=== PATIENT | male | born 1935 | race Caucasian/White ===

== ENCOUNTER 2020-08-04 12:04 | Emergency (ER) | payer MEDICARE, SELFPAY ==
--- NOTE | 2020-08-04 12:05 | W.ED.FALL ---
HPI - Fall General: Chief Complaint: Fall Stated Complaint: FALL BACK PAIN Time Seen by Provider: 08/04/20 12:05 Source: patient and EMS Mode of arrival: EMS Limitations: no limitations History of Present Illness: HPI Narrative: Patient is a nice 85-year-old male who presents to the ED today via EMS for complaints of a back injury. Patient tells me he was pulling weeds with a friend and was tugging on a vine when the line broke loose causing him to fall backwards. He states he struck his back on a rock. He did not strike his head or lose consciousness. No neck pain. Patient is quite uncomfortable upon arrival. He was given 100mcg fentanyl in route. Associated symptoms-after fall: Denies abdominal pain, chest pain, headache(s), hematuria, lightheadedness or neck pain Review of Systems Const: Denies: fever(s) Eyes: Denies: change in vision, blurry vision or photophobia ENMT: Denies: odynophagia Card: Denies: chest pain, palpitations, edema, lightheadedness, syncope, pre-syncope or orthopnea Resp: Denies: dyspnea or hemoptysis GI: Denies: abdominal pain, nausea or vomiting : Denies: flank pain or hematuria Musc: Reports: back pain; Denies: neck pain, extremity pain, extremity swelling, joint pain or joint swelling Neuro: Denies: headache(s), numbness in extremities, weakness in extremities or sensory changes [facility] PFSH: Medical History (Updated 08/04/20 @ 15:17 by ROHAN Rose) BPH (benign prostatic hyperplasia) Bradycardia Hypertension Surgical History (Updated 02/04/20 @ 09:25 by Polly Kulkarni MD) Hx of tonsillectomy Hx of transurethral resection of prostate 1997, 1994 Hx of vasectomy Family History Other BPH (benign prostatic hyperplasia) Hypertension Social History Smoking and tobacco status: never smoked Alcohol intake: current Alcohol intake frequency: other Physical Exam Const: COMMON NORMALS: average body habitus, patient oriented x3, no limitations, healthy appearing, alert and well nourished GENERAL APPEARANCE: cooperative and in distress (appears uncomfortable ) ORIENTATION/CONSCIOUSNESS: Yes awake, Yes oriented to person, Yes oriented to place and Yes oriented to time HENMT: COMMON NORMALS: normocephalic, atraumatic, EAC's normal and TM's normal bilaterally HEAD & SCALP: normal to inspection, normocephalic and atraumatic FACE & SINUS: normal facial exam and sinuses nontender EXTERNAL AUDITORY CANAL: EAC's normal TYMPANIC MEMBRANE: TM's normal bilaterally Eye: COMMON NORMALS: Equal, round and reactive pupils present and EOMs intact bilaterally GENERAL EYE: appearance normal, both eyes and all related structures PUPIL: Yes Equal, round and reactive pupils present Neck/C-Spine: COMMON NORMALS: full ROM CERVICAL SPINE: Yes cervical ROM normal, No pain with cervical ROM, No Cervical spine tenderness and No step off deformity Chest: COMMONS NORMALS: normal inspection of the chest and normal palpation of entire chest wall Resp: COMMON NORMALS: normal respiratory effort and clear to auscultation bilaterally AUSCULTATION: clear to auscultation bilaterally Cardio: COMMON NORMALS: regular rate and regular rhythm RATE: regular rate RHYTHM: regular rhythm GI: COMMON NORMALS: Normal to inspection, nondistended, normoactive bowel sounds present, Soft to palpation, non-tender, No hepatosplenomegaly present and no masses PALPATION: Yes Soft to palpation and Yes No hepatosplenomegaly present Back/Pelvis: THORACIC SPINE/UPPER BACK: Yes pain with ROM and Yes thoracic spinal tenderness (lower T spine) LUMBAR SPINE/LOWER BACK: Yes pain with ROM and Yes lumbar spinal tenderness (upper to mid L spine) Extremity: COMMON NORMALS: normal to inspection and full ROM GENERAL: Yes normal exam except as noted Neuro: CHRISTINE COMA SCALE: document GCS findings Christine coma scale eye opening: Spontaneous Christine coma scale verbal response: Orientated Marvin coma scale motor response: Obey commands Christine coma scale total score: 15 COMMON NORMALS: patient oriented x3, CN's II-XII intact bilaterally, moves all extremities, no focal motor deficits and no sensory deficits noted SENSORIUM/ORIENTATION: Yes alert, Yes oriented to person, Yes oriented to place and Yes oriented to time GAIT: Yes Unable to assess gait Skin: TRAUMA: no lacerations or abrasions Course Vital Signs: Vital signs: Vital Signs Temperature 97.9 F 08/04/20 12:06 Pulse Rate 68 08/04/20 13:39 Respiratory Rate 16 08/04/20 13:39 Blood Pressure 135/78 08/04/20 13:39 Pulse Oximetry 98 08/04/20 13:39 MDM - Fall MDM Narrative: Medical decision making narrative: Patient CT imaging is negative. Patient's pain was hard to control here. He is finally able to sit up on the side of the bed and transfer into a wheelchair. I discussed my concerns with him and his about the ability to care for himself at home however they assure me they feel like he can. He also states they have family members that can help care for him. We will discharge him home with pain medications and muscle relaxers as he feels like the muscles in his back are tensing up. Strict return to ED precautions. He needs to follow-up with PCP at the end of the week or early next week for re-evaluation if he does not seem to be improving. Imaging Data^: CT thoracic: Radiologist's impression: [place] [address] CT Scan Report Signed Patient: Ez Wren AUnit #: [id number] : 5Acct#:[id number] Age/Sex: 85 / MADM Date: 08/04/20 Loc: ERRoom/Bed: Attending Dr: Ordering Provider/Ordering MD: Ellen Silverman Date of Service: 08/04/20 Procedure(s): CT thoracic spin wo con* [id number] Accession Number(s): [id number] Report Number: [id number] WS: [id number] CT THORACIC SPINE HISTORY: fall; back pain TECHNIQUE: Contiguous 2.5 mm axial images are reviewed to thoracic spine. Images are reformatted in sagittal and coronal planes. All CT scans at [facility] use at least one of these dose optimization techniques: automated exposure control; mA and/or kV adjustment per patient size (includes targeted exams where dose is matched to clinical indication); or iterative reconstruction. DLP: 1394.82 mGy.cm COMPARISON: None available. Mild increase in the thoracic kyphosis. Mild disc space narrowing and desiccation throughout the thoracic spine. No fractures or retropulsion. Mild facet joint arthritis throughout the thoracic spine. No high-grade central stenosis. No disc protrusions identified. Mild atherosclerosis aorta. Mild enlargement of the heart. Numerous LEFT renal cystic masses. Cannot be further evaluated on this noncontrast exam. CT/CT thoracic spin wo con* [id number] IMPRESSION: 1. No acute thoracic spine fracture. 2. Osteopenia and slight increase in the thoracic kyphosis. Dictated By:Fauzia Barakat DO Signed By:Fauzia Barakat DOSigned Date/Time:08/04/20 1331 DD/ 1324 CT lumbar: Radiologist's impression: [address] [place] [address] CT Scan Report Signed Patient: Ez Wren Unit #: [id number] : 1935 Age/Sex: 85 / M ADM Date: 08/04/20 Loc: ER Room/Bed: Attending Dr: Ordering Provider/Ordering MD: Ellen Silverman Date of Service: 08/04/20 Procedure(s): CT lumbar spine wo con* [id number] Accession Number(s): [id number] Report Number: [id number] WS: [id number] CT LUMBAR SPINE, noncontrast. HISTORY: fall/ back pain TECHNIQUE: Contiguous 2.5 mm axial imaging are performed. Sagittal and coronal reformats are submitted and reviewed. All CT scans at [facility] use at least one of these dose optimization techniques: automated exposure control; mA and/or kV adjustment per patient size (includes targeted exams where dose is matched to clinical indication); or iterative reconstruction. IV contrast: None DLP: 1817.52 mGy.cm COMPARISON: None available. L5 anterolisthesis by 3.3 mm. Disc space narrowing and desiccation throughout the lumbar spine. No fractures are identified. There are several sclerotic foci within the lumbar spine and pelvis. These are probably benign bone islands. Stable since 03/22/2010. L1-2: Mild osteophytic ridging encroaching upon the ventral thecal sac and foramen. Mild central and subarticular recess narrowing. L2-3: Diffuse mild osteophytic ridging and annular disc bulging. Encroachment upon the ventral thecal sac causing mild central stenosis with moderate bilateral subarticular recess stenosis. L3-4: Diffuse osteophytic ridging and annular disc bulging. Bilateral subarticular recess stenosis. L4-5: Diffuse annular disc bulging and osteophytic ridging. Mild central and subarticular recess stenosis. L5-S1: Broad-based disc bulging centrally. Mild encroachment upon the S1 nerve roots bilaterally. Cystic masses in the LEFT kidney. Mild atherosclerosis of aorta. No aneurysm identified. CT/CT lumbar spine wo con* [id number] IMPRESSION: 1. No acute lumbar spine fracture. 2. 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 No high-grade stenosis. Dictated By: Fauzia Barakat DO Signed By: Fauzia Barakat DO Signed Date/Time: 08/04/201347 DD/ 134 Discharge Plan Discharge Patient Disposition: Home Clinical Impression: Severe back pain Fall Qualifiers: Encounter type: initial encounter Qualified Code(s): W19.XXXA - Unspecified fall, initial encounter Condition: Stable Prescriptions: New hydrocodone-acetaminophen 7.5-325 mg tablet 1 tab PO Q6H PRN (Reason: pain) Qty: 14 RF: 0 cyclobenzaprine 10 mg tablet 10 mg PO TID Qty: 14 RF: 0 ibuprofen 800 mg tablet 800 mg PO Q8H PRN (Reason: pain) Qty: 20 RF: 0 No Action finasteride 5 mg tablet 5 mg PO DAILY RF: 0 B-complex with vitamin C Tablet 1 tab PO DAILY RF: 0 omega-3 fatty acids [Fish Oil Concentrate] 1,000 mg capsule 1,000 mg PO DAILY RF: 0 losartan 50 mg tablet 50 mg PO BID Qty: 180 RF: 3 ibuprofen 200 mg Tablet 200 mg PO BEDTIME PRN (Reason: Pain) RF: 0 amlodipine 5 mg tablet 5 mg PO DAILY RF: 0 milk thistle 150 mg Capsule 150 mg PO DAILY RF: 0 saw palmetto 160 mg Capsule 160 mg PO BID RF: 0 Discharge Orders: Discharge ED (Routine); Ordered 08/04/20 Ordered By: Ellen Silverman Referrals: Raj Gandhi MD [Primary Care Provider] - Patient Instructions: Opioid Safety Activity Restrictions/Additional Instructions: [facility] is committed to fighting the nationwide opiate epidemic. We are providing ALL patients with information regarding opiate safety. If you received opiate pain medication during your stay or if you received a prescription for opiate pain medication-please review this handout. If not, you may disregard. Thank you. Coding Level of Care Code ED Staining Machine Operator for Garrick Fwd Exam Comprehensive
[2020-08-04 12:06] VITALS: BP 168/89; PULSE 67; RESP 15; TEMP 36.6; O2SAT 98; BMI 22.6
--- NOTE | 2020-08-04 12:12 | CT_ITS ---
WS: [id number] CT LUMBAR SPINE, noncontrast. HISTORY: fall/ back pain TECHNIQUE: Contiguous 2.5 mm axial imaging are performed. Sagittal and coronal reformats are submitte d and reviewed. All CT scans at [facility] use at least one of these dose optimization te chniques: automated exposure control; mA and/or kV adjustment per patient size (includes targeted exa ms where dose is matched to clinical indication); or iterative reconstruction. IV contrast: None DLP: 1817.52 mGy.cm COMPARISON: None available. L5 anterolisthesis by 3.3 mm. Disc space narrowing and desiccation throughout the lumbar spine. No fr actures are identified. There are several sclerotic foci within the lumbar spine and pelvis. These are probably benign bone i slands. Stable since 03/22/2010. L1-2: Mild osteophytic ridging encroaching upon the ventral thecal sac and foramen. Mild central and subarticular recess narrowing. L2-3: Diffuse mild osteophytic ridging and annular disc bulging. Encroachment upon the ventral thecal sac causing mild central stenosis with moderate bilateral subarticular recess stenosis. L3-4: Diffuse osteophytic ridging and annular disc bulging. Bilateral subarticular recess stenosis. L4-5: Diffuse annular disc bulging and osteophytic ridging. Mild central and subarticular recess sten osis. L5-S1: Broad-based disc bulging centrally. Mild encroachment upon the S1 nerve roots bilaterally. Cystic masses in the LEFT kidney. Mild atherosclerosis of aorta. No aneurysm identified. CT/CT lumbar spine wo con* [id number] IMPRESSION: 1. No acute lumbar spine fracture. 2. 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 No high-grade stenosis.
--- NOTE | 2020-08-04 12:12 | CT_ITS ---
WS: [id number] CT THORACIC SPINE HISTORY: fall; back pain TECHNIQUE: Contiguous 2.5 mm axial images are reviewed to thoracic spine. Images are reformatted in s agittal and coronal planes. All CT scans at [facility] use at least one of these dose opt imization techniques: automated exposure control; mA and/or kV adjustment per patient size (includes targeted exams where dose is matched to clinical indication); or iterative reconstruction. DLP: 1394.82 mGy.cm COMPARISON: None available. Mild increase in the thoracic kyphosis. Mild disc space narrowing and desiccation throughout the thor acic spine. No fractures or retropulsion. Mild facet joint arthritis throughout the thoracic spine. N o high-grade central stenosis. No disc protrusions identified. Mild atherosclerosis aorta. Mild enlargement of the heart. Numerous LEFT renal cystic masses. Cannot be further evaluated on this noncontrast exam. CT/CT thoracic spin wo con* [id number] IMPRESSION: 1. No acute thoracic spine fracture. 2. Osteopenia and slight increase in the thoracic kyphosis.
[2020-08-04] MEDS: ondansetron 2 mg/ML SDV 2 mL 4 MG IVP (12:29)
[2020-08-04] MEDS: morphine 4 mg/mL SDV 1 mL IVP (12:31)
[2020-08-04 13:39] VITALS: BP 135/78; PULSE 68; RESP 16; O2SAT 98
[2020-08-04] MEDS: ketorolac 30 mg/mL INJ 15 MG IVP (14:24)
[2020-08-04] MEDS: orphenadrine 30 mg/mL Inj 2 mL 60 MG IVP (14:24)
[2020-08-04 15:32] VITALS: BP 122/79; PULSE 71; RESP 15; O2SAT 96
== END 2020-08-04 15:32 | disposition home or self-care (01) ==
PROVIDERS: Emergency Provider Physician Assistant; PCP Family Medicine
DX: M54.9 Dorsalgia, unspecified (principal); I10 Essential (primary) hypertension
CPT/HCPCS: 72128; 72131; 96374; 96375; 99283; J1885; J2270; J2360; J2405

== ENCOUNTER 2023-04-12 11:16 | Emergency (ER) | payer OTHER, SELFPAY ==
[2023-04-12 11:24] VITALS: BP 163/93; PULSE 67; RESP 18; TEMP 36.7; O2SAT 94; BMI 25.8
[2023-04-12 11:29] VITALS: BP 169/93; PULSE 65; RESP 18; O2SAT 95
--- NOTE | 2023-04-12 11:29 | PC.NURSE ---
PT NOW STATES THAT HE HAS A SHARP PAIN THAT COMES AND GOES ON LEFT SIDE OF FRONTAL HEAD SEVERAL TIMES TODAY 04/12/23
--- NOTE | 2023-04-12 11:32 | XRR_ITS ---
PROCEDURE INFORMATION: Exam: XR Chest Exam date and time: 04/12/2023 11:40 AM Age: 88 years old Clinical indication: Cough and dyspnea; Additional info: Dyspnea/cough TECHNIQUE: Imaging protocol: Radiologic exam of the chest. Views: 1 view. COMPARISON: CR XR chest 2V* [id number] 06/25/2018 11:31 AM FINDINGS: Lungs: Negative for acute chest abnormality. Pleural spaces: Unremarkable. No pleural effusion. No pneumothorax. Heart/Mediastinum: Unremarkable. No cardiomegaly. Bones/joints: Unremarkable. XR/XR chest 1V portable [id number] IMPRESSION: No acute findings.
--- NOTE | 2023-04-12 11:44 | ECG_ITS ---
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 Measurements Intervals [place] Rate: 63 P: 28 [place]: 213 QRS: -57 QRSD: 98 T: 20 QT: 407 QTc: 419 Interpretive Statements SINUS RHYTHM WITH FIRST DEGREE AV BLOCK INCOMPLETE RIGHT BUNDLE BRANCH BLOCK LEFT ANTERIOR FASCICULAR BLOCK [QRS AXIS <= -45, QR IN I, RS IN II] MODERATE VOLTAGE CRITERIA FOR LVH, CONSIDER NORMAL VARIANT [MEETS CRITERIA IN ONE OF: R(aVL), S(V1), R(V5), R(V5/V6)+S(V1)] POSSIBLE SEPTAL MYOCARDIAL INFARCTION , OF INDETERMINATE AGE [30 ms Q WAVE IN V1/V2] Compared to ECG 06/02/2018 14:14:05 First degree AV block now present Left anterior fascicular block now present Myocardial infarct finding now present Sinus bradycardia no longer present Electronically Signed On 04-12-2023 15:22:23 PHYSICAL METEOROLOGIST by Polly Kulkarni M.D. [id number]
--- NOTE | 2023-04-12 11:52 | W.ED.WEAKNES ---
HPI - Weakness General: Chief complaint: Weakness Stated complaint: sob, numbness left arm Time Seen by Provider: 04/12/23 11:30 Source: patient Mode of arrival: ambulatory History of Present Illness: 88-year-old male presents emergency room with complaint of generally feeling weak for the last week. He has intermittent numbness in his left arm for 6 weeks. He has a history of mild dementia. No chest pain no abdominal pain no vomiting or diarrhea. No shortness of breath MD Complaint: generalized weakness Onset (ago): week(s) Relieving factors: none Exacerbating factors: none Associated symptoms: Denies chest pain, chills, confusion, melena, decreased appetite, diaphoresis, dysuria, easy bruising, fever(s), headache(s), myalgias, nausea, rash, short of breath, syncope or vomiting Review of Systems Const: Denies: fever(s), chills or diaphoresis Card: Denies: chest pain or syncope Resp: Denies: dyspnea GI: Denies: abdominal pain, nausea, vomiting or melena : Denies: dysuria, urinary frequency or urinary urgency Musc: Denies: neck pain or back pain Skin/Breast: Denies: rash Neuro: Denies: headache(s) or confusion Jareth/Lymph: Denies: easy bruising PFSH ED PFSH: Medical History Hypertension BPH (benign prostatic hyperplasia) Bradycardia Surgical History Hx of tonsillectomy Hx of vasectomy Hx of transurethral resection of prostate 1997, 1994 Family History Other BPH (benign prostatic hyperplasia) Hypertension Social History Smoking and tobacco/nicotine status: never used tobacco/nicotine Alcohol intake: current Alcohol intake frequency: other Substance/Drug Use: never Physical Exam Const: COMMON NORMALS: no acute distress GENERAL APPEARANCE: cooperative and comfortable ORIENTATION/CONSCIOUSNESS: Yes awake HENMT: COMMON NORMALS: normocephalic, atraumatic and hearing grossly normal bilaterally HEAD & SCALP: normocephalic and atraumatic Resp: COMMON NORMALS: normal respiratory effort, No retractions, No use of accessory muscles and clear to auscultation bilaterally AUSCULTATION: clear to auscultation bilaterally Cardio: COMMON NORMALS: regular rate, regular rhythm and No murmurs present (Cardio) RATE: regular rate RHYTHM: regular rhythm GI: COMMON NORMALS: Soft to palpation and No hepatosplenomegaly present AUSCULTATION: Yes normoactive bowel sounds PALPATION: Yes Soft to palpation, No Tenderness to palpation present (GI), No Guarding due to palpation present (GI) and Yes No hepatosplenomegaly present Extremity: COMMON NORMALS: normal to inspection, capillary refill normal, no clubbing, cyanosis or edema, no calf tenderness and no pedal edema Skin: COMMON NORMALS: no rashes or lesions noted GENERAL SKIN EXAM: no rashes or lesions noted Course Vital Signs: Vital signs: Vital Signs Temperature 98.1 F 04/12/23 11:24 Pulse Rate 57 L 04/12/23 15:45 Respiratory Rate 14 04/12/23 13:57 Blood Pressure 172/98 04/12/23 15:45 Pulse Oximetry 97 04/12/23 15:45 Oxygen Delivery Me thod Room Air 04/12/23 11:29 MDM - Weakness Medical Decision Making Cardiac enzymes and EKG normal no acute ST changes on EKG. Laboratory test reviewed. Blood pressure remained elevated. Will add amlodipine to the losartan he currently is taking and follow-up with his primary care doctor within the next week return if has further problems. Medical Records I reviewed the patient's medical records. Lab Data I reviewed the patient's lab results. 04/12/23 11:57 04/12/23 11:57 Radiology Impressions Chest X-Ray 04/12/23 11:32 IMPRESSION: No acute findings. Laboratory Results WBC 5.77 10^3/uL (3.29-11.43) 04/12/23 11:57 RBC 4.75 10^6/uL (3.85-5.65) 04/12/23 11:57 Hgb 14.40 g/dL (11.27-16.99) 04/12/23 11:57 Hct 42.8 % (37-53) 04/12/23 11:57 MCV 90.1 fl (82-101) 04/12/23 11:57 MCH 30.3 pg (27-33) 04/12/23 11:57 MCHC 33.6 g/dL (30-55) 04/12/23 11:57 RDW 12.4 % (12.1-15.1) 04/12/23 11:57 Plt Count 247 10^3/cmm (157-399) 04/12/23 11:57 MPV 10.3 fL (7.4-10.4) 04/12/23 11:57 Neut % (Auto) 71.0 % 04/12/23 11:57 Lymph % (Auto) 19.2 % 04/12/23 11:57 Kendall % (Auto) 8.3 % 04/12/23 11:57 Eos % (Auto) 0.9 % 04/12/23 11:57 Baso % (Auto) 0.3 % 04/12/23 11:57 Neut # (Auto) 4.09 10^3/uL (1.8-7.7) 04/12/23 11:57 Lymph # (Auto) 1.1 10^3/uL (0.8-4.8) 04/12/23 11:57 Kendall # (Auto) 0.5 10^3/uL (0.2-0.9) 04/12/23 11:57 Eos # (Auto) 0.1 10^3/uL (0.0-0.8) 04/12/23 11:57 Baso # (Auto) 0.0 10^3/uL (0.0-0.1) 04/12/23 11:57 Nucleated RBC % (auto) 0 % 04/12/23 11:57 Nucleated RBCs # 0.0 /100WBC 04/12/23 11:57 Sodium 137 mmol/L (136-145) 04/12/23 11:57 Potassium 4.1 mmol/L (3.5-5.1) 04/12/23 11:57 Chloride 104 mmol/L (98-107) 04/12/23 11:57 Carbon Dioxide 24 mmol/L (22-29) 04/12/23 11:57 Anion Gap 13.1 (5-19) 04/12/23 11:57 BUN 20 mg/dL (8-23) 04/12/23 11:57 Creatinine 0.9 mg/dL (0.7-1.2) 04/12/23 11:57 GFR Calculation Not Reportable 04/12/23 11:57 Glucose 150 mg/dL (65-115) H 04/12/23 11:57 Calculated Osmolality 289 mOsm/kg (285-295) 04/12/23 11:57 Lactic Acid 2.3 mmol/L (0.5-2.2) H 04/12/23 11:57 Lactic Acid (Sepsis) 1.3 mmol/L (0.5-2.2) 04/12/23 14:46 Calcium 8.6 mg/dL (8.5-10.5) 04/12/23 11:57 Total Bilirubin 0.5 mg/dL (0.15-1.2) 04/12/23 11:57 AST 17 U/L (0-40) 04/12/23 11:57 ALT 23 U/L (0-41) 04/12/23 11:57 Alkaline Phosphatase 103 U/L (40-130) 04/12/23 11:57 Troponin T Baseline 22 ng/L (0-15) H 04/12/23 11:57 Troponin T 120 Minute 20.24 ng/L (0-15) H 04/12/23 14:02 Delta Troponin T -1.76 ABS# (0-10) L 04/12/23 14:02 Total Protein 6.6 g/dL (6.6-8.7) 04/12/23 11:57 Albumin 3.8 g/dL (3.5-5.2) 04/12/23 11:57 Globulin 2.8 g/dL (1.3-4.6) 04/12/23 11:57 Urine Color Yellow (Yellow) 04/12/23 13:46 Urine Appearance Clear (CLEAR) 04/12/23 13:46 Urine pH 6.5 (5-7) 04/12/23 13:46 Ur Specific [place] 1.010 (1.005-1.030) 04/12/23 13:46 Urine Protein Neg (Negative) 04/12/23 13:46 Urine Glucose (UA) Norm (Normal) 04/12/23 13:46 Urine Ketones Negative (Negative) 04/12/23 13:46 Urine Blood Neg (Negative) 04/12/23 13:46 Urine Nitrate Negative (Negative) 04/12/23 13:46 Urine Bilirubin Neg (Negative) 04/12/23 13:46 Urine Urobilinogen Norm mg/dL (Negative) 04/12/23 13:46 Ur Leukocyte Esterase Negative (Negative) 04/12/23 13:46 All radiology interpretation(s) finalized by discharge Discharge Plan Discharge Patient Disposition: Home Clinical Impression: Benign essential HTN Condition: Stable Prescriptions: New amlodipine 5 mg tablet 5 mg PO DAILY Qty: 30 0RF No Action finasteride 5 mg tablet 5 mg PO DAILY B-complex with vitamin C Tablet 1 tab PO DAILY losartan 50 mg tablet 50 mg PO BID Qty: 180 3RF ibuprofen 200 mg Tablet 200 mg PO BEDTIME PRN (Reason: Pain) milk thistle 150 mg Capsule 150 mg PO DAILY saw palmetto 160 mg Capsule 160 mg PO BID Multi-Vitamins Tablet 1 tab PO QAM Ginkoba 40 mg Tablet 40 mg PO DAILY Rx Instructions: give with meal/snack fluoxetine 20 mg capsule 20 mg PO DAILY [place] 3 Fish Oil 684-1,200 mg Capsule,Delayed Release(Dr/Ec) 1 cap PO DAILY ashwagandha root extract 300 mg Capsule 300 mg PO DAILY Discharge Orders: Discharge ED (Routine); Ordered 04/12/23 Ordered By: Emmanuel Evans Referrals: Raj Gandhi MD [Primary Care Provider] - Discharge Diet: Usual diet Discharge Activity: Increase activity as tolerated Patient Instructions: Opioid Safety, Pain Management Activity Restrictions/Additional Instructions: Thank you for choosing [facility] for your healthcare needs today. Please realize this is an emergency room and that we are providing you with a medical screening exam and this may not be complete and all inclusive of all the testing and or work up that you may need to determine your ailment or severity of your illness. It is very important that you follow up as instructed or that you return to the Emergency Department should you have concerns or if your condition changes or worsens in any way. You were seen today for generally not feeling well your cardiac enzymes were negative your other laboratory studies were not clinically significant. Recommend that you add amlodipine 5 mg daily to your current blood pressure regiment continue the losartan 50 mg twice a day follow-up with your primary care doctor within the week to recheck your blood pressure Coding Level of Care Code ED Technical Consultant for Garrick Huber NIH stroke score NIHSS Level Of Consciousness - 1a: 0 Level Of Consciousness Questions - 1b: Both Correct Level Of Consciousness Commands - 1c: Both Correct Best Gaze - 2: Normal Visual Tracey - 3: No Visual Loss Facial Palsy - 4: Normal Motor Arm Right - 5: No Drift Motor Arm Left - 5: No Drift Motor Leg Right - 6: No Drift Motor Leg Left - 6: No Drift Limb Ataxia - 7: Absent Sensory - 8: Normal Best Language - 9: No Aphasia Dysarthia - 10: Normal Extinction And Inattention - 11: 0 Score Total Score: 0
[2023-04-12 12:03] LABS: Basophils % 0.3 %; Eosinophils # 0.1 10^3/uL (0.0-0.8); Eosinophils % 0.9 %; Hematocrit 42.8 % (37-53); Lymphocytes # 1.1 10^3/uL (0.8-4.8); Lymphocytes % 19.2 %; Mean Corpuscular HGB Conc 33.6 g/dL (30-55); Mean Corpuscular Hemoglobin 30.3 pg (27-33); Mean Corpuscular Volume 90.1 fl (82-101); Mean Platelet Volume 10.3 fL (7.4-10.4); Monocytes # 0.5 10^3/uL (0.2-0.9); Monocytes % 8.3 %; Neutrophils # 4.09 10^3/uL (1.8-7.7); Nucleated Red Blood Cells % 0 %; Platelet Count 247 10^3/cmm (157-399); Red Blood Count 4.75 10^6/uL (3.85-5.65); Red Cell Distribution Width 12.4 % (12.1-15.1); White Blood Count 5.77 10^3/uL (3.29-11.43)
[2023-04-12 12:24] LABS: Alanine Aminotransferase 23 U/L (0-41); Albumin Level 3.8 g/dL (3.5-5.2); Alkaline Phosphatase 103 U/L (40-130); Anion Gap 13.1 (5-19); Aspartate Amino Transferase 17 U/L (0-40); Blood Urea Nitrogen 20 mg/dL (8-23); Calcium 8.6 mg/dL (8.5-10.5); Carbon Dioxide 24 mmol/L (22-29); Chloride 104 mmol/L (98-107); Globulin 2.8 g/dL (1.3-4.6); Glucose 150 mg/dL (65-115); Osmolality Calculated 289 mOsm/kg (285-295); Potassium 4.1 mmol/L (3.5-5.1); Sodium 137 mmol/L (136-145); Total Bilirubin 0.5 mg/dL (0.15-1.2); Total Protein 6.6 g/dL (6.6-8.7)
[2023-04-12 12:25] LABS: Lactic Sepsis W/Reflex 2.3 mmol/L (0.5-2.2); Troponin(5th) Baseline 22 ng/L (0-15)
[2023-04-12 12:47] VITALS: BP 173/88; PULSE 63; RESP 16; O2SAT 95
[2023-04-12 13:17] VITALS: BP 166/66; PULSE 63; RESP 16; O2SAT 95
--- NOTE | 2023-04-12 13:32 | ECG_ITS ---
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 Measurements Intervals [place] Rate: 59 P: -23 ND: 206 QRS: -52 QRSD: 97 T: 15 QT: 398 QTc: 395 Interpretive Statements SINUS BRADYCARDIA INCOMPLETE RIGHT BUNDLE BRANCH BLOCK [90+ ms QRS DURATION, TERMINAL R IN V1/V2, 40+ ms S IN I/aVL/V4/V5/V6] LEFT ANTERIOR FASCICULAR BLOCK [QRS AXIS <= -45, QR IN I, RS IN II] MODERATE VOLTAGE CRITERIA FOR LVH, CONSIDER NORMAL VARIANT [MEETS CRITERIA IN ONE OF: R(aVL), S(V1), R(V5), R(V5/V6)+S(V1)] POSSIBLE SEPTAL MYOCARDIAL INFARCTION , OF INDETERMINATE AGE [30 ms Q WAVE IN V1/V2] Compared to ECG 04/12/2023 11:44:50 Sinus rhythm no longer present First degree AV block no longer present Myocardial infarct finding still present Electronically Signed On 04-12-2023 15:23:47 ELECTRICAL FITTER by Polly Kulkarni M.D. [id number]
[2023-04-12 13:48] LABS: Reflex Lactate Order REFLEX LACTIC ORDERD
[2023-04-12] MEDS: sodium chloride 0.9% 500 ML 999 ML IV (13:55)
[2023-04-12 13:57] VITALS: BP 194/149; PULSE 59; RESP 14; O2SAT 97
[2023-04-12 14:03] LABS: Add Urine Microscopic? NO; Charge for UA Resulting for Rev
[2023-04-12 14:20] LABS: Bilirubin Urine Neg (Negative); Blood Urine Neg (Negative); Glucose Urine UA Norm (Normal); Ketones Urine Negative (Negative); Leukocyte Esterase Urine Negative (Negative); Nitrate Urine Negative (Negative); Protein Urine Neg (Negative); Urine Appearance Clear (CLEAR); Urine Color Yellow (Yellow); Urobilinogen Urine Norm (Negative); pH Urine 6.5 (5-7)
[2023-04-12 14:36] LABS: Troponin 5 2HR 20.24 ng/L (0-15); Troponin 5 2HR Delta -1.76 ABS# (0-10)
[2023-04-12 15:18] LABS: Lactic Acid level (Lactate) 1.3 mmol/L (0.5-2.2)
[2023-04-12 15:45] VITALS: BP 172/98; PULSE 57; O2SAT 97
== END 2023-04-12 15:47 | disposition home or self-care (01) ==
PROVIDERS: Emergency Provider Family Medicine; PCP Family Medicine
DX: I10 Essential (primary) hypertension (principal)
CPT/HCPCS: 36415; 71045; 80053; 81003; 83605; 84484; 85025; 93005; 96360; 99285; J7040

== ENCOUNTER 2023-05-11 15:31 | Outpatient (RCR) | payer OTHER, SELFPAY | END 2023-05-24 23:59 | disposition home or self-care (01) | LOC: SOT 15:31 | PROVIDERS: PCP Family Medicine; Visit Provider Family Medicine | DX: R25.1 Tremor, unspecified (principal) | CPT/HCPCS: 97165 ==

== ENCOUNTER 2023-06-07 08:34 | Outpatient (CLI) | payer OTHER, SELFPAY ==
--- NOTE | 2023-06-07 08:39 | MR_ITS ---
WS: [id number] MRI HEAD WITHOUT CONTRAST TECHNIQUE: Sagittal T1, T2 axial, T2 axial FLAIR, axial and coronal T1 images, axial susceptibility w eighted imaging, axial diffusion weighted images, and coronal T2 images were obtained. Unable to obta in IV access for contrast. CLINICAL INFORMATION: TREMOR/VASCULAR DEMENTIA COMPARISON: CT head 2006 FINDINGS: No evidence of restricted diffusion to suggest acute ischemia. Ventricular system and basal cisterns are patent. Moderate to advanced small vessel changes with moderate parenchymal volume loss. Confluen t white matter changes in the RIGHT posterior frontal and parietal lobes. RIGHT posterior frontal and parietal cortical infarcts with encephalomalacia and gliosis. Tiny chronic lacunar infarcts in the R IGHT cerebellum. Normal posterior fossa. Normal vascular flow voids at the skull base. No extra-axial fluid collections. No evidence of mass or mass effect. Paranasal sinuses are well aerated. Mucosal t hickening in the ethmoid air cells. Normal posterior nasopharynx. Mastoid air cells are well aerated. Normal posterior nasopharynx. Few small punctate foci of hemosiderin in the RIGHT parietal lobe and LEFT cerebellum. Normal optic c hiasm and pituitary infundibulum. Moderate to advanced symmetric atrophy temporal lobes and hippocamp al formations. IMPRESSION: 1. No evidence of restricted diffusion to suggest acute ischemia. 2. Moderate to advanced small vessel changes with moderate parenchymal volume loss. 3. Chronic infarcts in the RIGHT posterior frontal and parietal lobe with encephalomalacia and glios is. 4. Tiny chronic lacunar infarcts in the RIGHT cerebellum. 5. Moderate to advanced symmetric atrophy temporal lobes and hippocampal formations 6. A few punctate foci of hemosiderin in the RIGHT parietal lobe and LEFT cerebellum.
== END 2023-06-07 08:35 | disposition home or self-care (01) ==
LOC: RAD 08:34
PROVIDERS: PCP Family Medicine; Visit Provider Family Medicine
DX: R25.1 Tremor, unspecified (principal); F01.50 Vascular dementia, unspecified severity, without behavioral disturbance, psychotic disturbance, mood disturbance, and anxiety; I69.398 Other sequelae of cerebral infarction; G93.89 Other specified disorders of brain
CPT/HCPCS: 70551

== ENCOUNTER 2023-06-29 10:03 | Outpatient (CLI) | payer OTHER, SELFPAY ==
--- NOTE | 2023-06-29 10:10 | USCV_ITS ---
Ez Wren Age: 88 Gender: M : 1935 Exam Date: 06/29/2023 10:28 Ordering Phys: Kandis Holm MD Technologist: SHAWN [place] [facility] [place]: VASCULAR DEMENTIA Risk Factors: UNKNOWN Previous Vascular Surgery: None Right Brachial BP: / Left Brachial BP: / Right Left Velocity (cm/s) Spectral Plaque Velocity (cm/s) Spectral Plaque Syst/Diast Broadening Syst/Diast Broadening 55.60/ 18.00 Prox CCA 82.50 / 18.40 67.60/ 12.30 Mid CCA 67.20 / 12.50 67.60/ 18.00 Distal CCA 39.10 / 15.30 41.80/ 6.60 Prox ICA 44.70 / 11.10 87.10/ 26.40 Mid ICA 50.40 / 18.10 75.80/ 18.80 Distal ICA 57.20 / 23.60 89.00 ECA 81.20 1.30 ICA/CCA 1.50 Antegrade Vertebral Antegrade 34.60/ 9.10 cm/s 36.20/ 9.70 cm/s Tri Subclavian Bi 50.70 74.00 FINDINGS Mild to moderate scattered plaques in the common carotid and internal carotid arteries bilaterally including the bifurcations Antegrade flow in the vertebral arteries bilaterally. Normal Doppler flow velocities in the vertebral arteries bilaterally. CONCLUSIONS Mild to moderate scattered plaques bilaterally suggesting less than 50% stenosis No significant stenosis in the external carotid, vertebral or subclavian arteries, based on the Doppler flow velocities No similar previous studies are available for comparison Dr Eric Whitten MD [facility] (Electronically Signed) Final Date: 30 June 2023 20:03 S
== END 2023-06-29 10:04 | disposition home or self-care (01) ==
LOC: RAD 10:03
PROVIDERS: PCP Family Medicine; Visit Provider Family Medicine
DX: I65.23 Occlusion and stenosis of bilateral carotid arteries (principal); F01.50 Vascular dementia, unspecified severity, without behavioral disturbance, psychotic disturbance, mood disturbance, and anxiety
CPT/HCPCS: 93880

== ENCOUNTER 2023-12-07 11:54 | Outpatient (CLI) | payer MEDICARE, SELFPAY ==
--- NOTE | 2023-12-07 12:00 | USCV_ITS ---
Ez Wren Age: 88 Gender: M : 1935 Exam Date: 12/07/2023 12:25 Ordering Phys: Evgeny Gore MD ([email or web address]) Technologist: Exam Location[place] [facility] [place] Indication: HX OF MA WEAKNESS BP: 130 / 76 HR: 72 Rhythm: Sinus Technical Quality: Adequate MEASUREMENTS (Male / Female) Normal Values 2D ECHO LV Diastolic Diameter PLAX 4.5 cm 4.2 - 5.9 / 3.9 - 5.3 cm IVS Diastolic Thickness 1.1 cm 0.6 - 1.0 / 0.6 - 0.9 cm IVS Systolic Thickness 1.5 cm LVPW Diastolic Thickness 1.0 cm 0.6 - 1.0 / 0.6 - 0.9 cm LVPW Systolic Thickness 1.4 cm LVOT Diameter 2.0 cm LV Ejection Fraction 2D Teich 64.0 % LV Ejection Fraction MOD 4C 76.1 % LV Ejection Fraction MOD 2C 59.4 % LV Ejection Fraction 2C AL 60.8 % LA Diameter 3.5 cm RA Systolic Volume 4C AL 34.8 ml RA Systolic Volume 4C MOD 33.2 ml Aorta at Sinotubular Diameter 3.4 cm M-MODE LA Ao Ratio MM 1.0 MV E Point Septal Separation 1.5 cm AV Cusp Separation MM 2.1 cm DOPPLER AV Peak Velocity 150.0 cm/s LVOT Peak Velocity 77.0 cm/s AV Area Cont Eq vti 2.2 cm squared AV Area Cont Eq pk 1.7 cm squared MV Area PHT 2.5 cm squared Mitral E to A Ratio 0.5 TR Peak Velocity 87.0 cm/s TR Peak Gradient 3.0 mmHg Right Atrial Pressure 3.0 mmHg Pulmonary Artery Systolic Pressu 6.0 mmHg PV Peak Velocity 98.0 cm/s FINDINGS Left Ventricle Normal left ventricular size, systolic function and wall thickness, with no regional wall motion abnormalities. Estimated ejection fraction 60% normal . Grade I/IV diastolic dysfunction (abnormal relaxation filling pattern), normal to mildly elevated filling pressures. Right Ventricle The right ventricle is normal in size and function. Right Atrium The right atrium is normal in size. Left Atrium The left atrium is normal in size. Mitral Valve Structurally normal mitral valve without significant stenosis or prolapse. There is no mitral regurgitation. Aortic Valve Severe aortic valve calcification. No aortic valve stenosis. Trace aortic valve regurgitation. Tricuspid Valve Structurally normal tricuspid valve without significant stenosis or regurgitation. Pulmonary artery systolic pressure is normal. Pulmonic Valve Structurally normal pulmonic valve without significant stenosis. There is no pulmonic regurgitation. Pericardium Normal pericardium without effusion. Aorta Normal ascending aorta dimension. IVC The inferior vena cava appears normal. CONCLUSIONS Normal left ventricular size, systolic function and wall thickness, with no regional wall motion abnormalities. Estimated ejection fraction 60% normal . Grade I/IV diastolic dysfunction (abnormal relaxation filling pattern), normal to mildly elevated filling pressures. No significant valve abnormalities. There is no pericardial effusion. Right atrial pressure is around 5 mm of mercury. Abdulaziz Issa MD (Electronically Signed) Final Date: 07 December 2023 21:35 S
== END 2023-12-07 11:55 | disposition home or self-care (01) ==
LOC: RAD 11:55
PROVIDERS: PCP Family Medicine; Visit Provider Internal Medicine Cardiovascular Disease
DX: R00.1 Bradycardia, unspecified (principal); I51.89 Other ill-defined heart diseases
CPT/HCPCS: 93306

== ENCOUNTER → 2023-12-12 13:05 | Outpatient (BNVA) | payer MEDICARE, SELFPAY | PROVIDERS: PCP Family Medicine; Visit Provider Dermatology | DX: C44.319 Basal cell carcinoma of skin of other parts of face (principal); D48.5 Neoplasm of uncertain behavior of skin; L81.4 Other melanin hyperpigmentation; L82.1 Other seborrheic keratosis; D22.5 Melanocytic nevi of trunk; Z85.828 Personal history of other malignant neoplasm of skin | CPT/HCPCS: 11102; 99203 ==

== ENCOUNTER 2024-01-26 10:53 | Outpatient (CLI) | payer OTHER, SELFPAY ==
--- NOTE | 2024-01-26 10:58 | MR_ITS ---
WS: [id number] MRI LUMBAR SPINE NONCONTRAST TECHNIQUE: Sagittal T1, T2 and STIR imaging. Axial T1 and T2 imaging. CLINICAL INFORMATION: LOW BACK PAIN COMPARISON: None. FINDINGS: No lumbar curve. No acute compression. Disc bulging worse at L1-L3. L1-L2: Mild disc bulging with moderate narrowing of the thecal sac. Prominent epidural fat contribute s to stenosis. Crowding of the cauda equina nerve rootlets. Moderate facet arthropathy. Foramen are p atent. L2-L3: Moderate narrowing of the thecal sac with a central and LEFT paracentral protrusion. Prominent epidural fat contributes to stenosis. Moderate facet arthropathy. Crowding of the cauda equina nerve rootlets. Mild RIGHT greater than LEFT foraminal narrowing. L3-L4: Mild annular bulging. Mild central canal stenosis. Impingement of the subarticular recess. Mod erate facet arthropathy. Moderate RIGHT and no significant LEFT foraminal narrowing. L4-L5: Mild annular bulging with slight impingement on the RIGHT greater than LEFT subarticular reces s. Mild RIGHT and no significant LEFT foraminal narrowing. Moderate facet arthropathy. L5-S1: Mild annular bulging. Slight impingement on the traversing S1 nerve roots bilaterally.Foramen are patent. Moderate to advanced facet arthropathy. Partially visualized bilateral renal cysts largest on the LEFT measuring up to 4.3 cm. Enlarged nodul ar prostate measuring 5.3 x 5.4 cm. Recommend correlation PSA. MR/MR lumbar spine wo con* [id number] IMPRESSION: 1. Moderate narrowing of the thecal sac with crowding of the cauda equina nerv e rootlets at L1-L2 and L2-L3 due to disc bulging in combination with facet art hropathy and ligamentum flavum hypertrophy. Prominent epidural fat contributes to stenosis. 2. Narrowing of the RIGHT L2-3 and RIGHT L3-4 subarticular recess. Mild RIGHT L2-3 and moderate RIGHT L3-4 foraminal narrowing. 3. Mild central canal stenosis L3-4. 4. Disc bulging with impingement on the subarticular recess bilaterally L4-5. 5. Markedly enlarged prostate. Recommend correlation PSA.
== END 2024-01-26 10:54 | disposition home or self-care (01) ==
LOC: RAD 10:55
PROVIDERS: PCP Family Medicine; Visit Provider Family Medicine
DX: M47.896 Other spondylosis, lumbar region (principal); M51.26 Other intervertebral disc displacement, lumbar region; M99.63 Osseous and subluxation stenosis of intervertebral foramina of lumbar region; M47.898 Other spondylosis, sacral and sacrococcygeal region; N40.0 Benign prostatic hyperplasia without lower urinary tract symptoms
CPT/HCPCS: 72148

== ENCOUNTER → 2024-03-13 10:24 | Outpatient (BNVA) | payer OTHER, SELFPAY | PROVIDERS: PCP Family Medicine; Visit Provider Nurse Practitioner Family | DX: L81.4 Other melanin hyperpigmentation (principal); L82.1 Other seborrheic keratosis; D22.5 Melanocytic nevi of trunk; Z48.3 Aftercare following surgery for neoplasm; Z85.828 Personal history of other malignant neoplasm of skin; L57.0 Actinic keratosis | CPT/HCPCS: 17000; 99213 ==

== ENCOUNTER 2024-04-17 11:59 | Emergency (ER) | payer OTHER, MEDICARE, SELFPAY ==
[2024-04-17 12:02] VITALS: BP 133/88; PULSE 81; RESP 17; TEMP 36.5; O2SAT 93; BMI 22.1
--- NOTE | 2024-04-17 12:04 | XRR_ITS ---
PROCEDURE INFORMATION: Exam: XR Chest Exam date and time: 04/17/2024 12:43 PM Age: 89 years old Clinical indication: Shortness of breath and other: Syncope; Additional info: Near syncope, hypoxia TECHNIQUE: Imaging protocol: Radiologic exam of the chest. Views: 1 view. COMPARISON: CR XR chest 1V portable [id number] 04/12/2023 11:40 AM FINDINGS: Lungs: Unremarkable. No consolidation. Pleural spaces: Unremarkable. No pleural effusion. No pneumothorax. Heart/Mediastinum: Unremarkable. No cardiomegaly. Bones/joints: Unremarkable. XR/XR chest 1V portable [id number] IMPRESSION: No acute findings.
--- NOTE | 2024-04-17 12:18 | ECG_ITS ---
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 Measurements Intervals [place] Rate: 81 P: 39 UT: 210 QRS: -56 QRSD: 107 T: 20 QT: 370 QTc: 430 Interpretive Statements SINUS RHYTHM WITH FIRST DEGREE AV BLOCK INCOMPLETE RIGHT BUNDLE BRANCH BLOCK [90+ ms QRS DURATION, TERMINAL R IN V1/V2, 40+ ms S IN I/aVL/V4/V5/V6] LEFT ANTERIOR FASCICULAR BLOCK [QRS AXIS <= -45, QR IN I, RS IN II] POSSIBLE ANTERIOR MYOCARDIAL INFARCTION , PROBABLY OLD [30 ms Q WAVE IN V3/V4, OR R < 0.2 mV IN V4] Compared to ECG 04/12/2023 13:58:00 First degree AV block now present Sinus bradycardia no longer present Myocardial infarct finding still present Electronically Signed On 04-17-2024 17:36:18 FINANCIAL SERVICES CONSULTANT by Eric Whitten M.D. [id number]
[2024-04-17 12:21] LABS: Basophils % 0.3 %; Eosinophils # 0.1 10^3/uL (0.0-0.8); Eosinophils % 1.4 %; Hematocrit 41.6 % (37-53); Lymphocytes # 1.2 10^3/uL (0.8-4.8); Lymphocytes % 18.6 %; Mean Corpuscular HGB Conc 32.9 g/dL (30-55); Mean Corpuscular Hemoglobin 30.6 pg (27-33); Mean Corpuscular Volume 93.1 fl (82-101); Mean Platelet Volume 10.7 fL (7.4-10.4); Monocytes # 0.6 10^3/uL (0.2-0.9); Monocytes % 8.5 %; Neutrophils # 4.69 10^3/uL (1.8-7.7); Neutrophils % 70.9 %; Nucleated Red Blood Cells % 0 %; Platelet Count 217 10^3/cmm (157-399); Red Blood Count 4.47 10^6/uL (3.85-5.65); Red Cell Distribution Width 12.7 % (12.1-15.1); White Blood Count 6.61 10^3/uL (3.29-11.43)
[2024-04-17 12:30] LABS: ABG PCO2 34.9 mmHg (35-45); ABG PH Result 7.43 (7.35-7.45); Arterial Blood Gas Hematocrit 42.2 % (42-52); Base Excess ABG -0.9 mmol/L (-2.0-2.0); Blood Gas Allen Test Pos; Blood Gas Operator Identificat MONRO; Blood Gas Sample Site Radial, right; Blood Gas Sample Type Arterial; HCO3 ABG 22.9 mmol/L (22-26); HGB O2 Sat 92.8 % (95-100); Methemoglobin 0.2 % (0.4-1.5); Oxygen Device NC; PO2 ABG 65.7 mmHg (80.0-100.0); PO2 FiO2 Ratio Arterial Blood 182; Total Hemoglobin 13.8 g/dL (14-18)
--- NOTE | 2024-04-17 12:46 | W.ED.SOB ---
HPI - SOB/Dyspnea General: Chief Complaint: Shortness of Breath/Dyspnea Stated Complaint: SOB Time Seen by Provider: 04/17/24 12:00 Source: patient and EMS Mode of arrival: EMS Limitations: no limitations History of Present Illness: HPI Narrative: 89-year-old male states he is going to the bathroom this morning started to feel short of breath and weak. Patient has no history of any lung issues called EMS patient's pulse ox was noted to be in the 70s he is on 4 L currently states he is feeling improved he denies any chest pain denies any vomiting or diarrhea. Associated symptoms: Deny abdominal pain, chest pain, fever(s), nausea or vomiting Related Data Home Medications Medication Instructions Recorded Confirmed B-complex with vitamin C 1 tab PO DAILY 02/04/20 10/20/23 finasteride 5 mg tablet 5 mg PO DAILY 02/04/20 10/20/23 ibuprofen 200 mg tablet 200 mg PO BEDTIME PRN Pain 08/04/20 10/20/23 milk thistle 150 mg capsule 150 mg PO DAILY 08/04/20 10/20/23 saw palmetto 160 mg capsule 160 mg PO BID 08/04/20 10/20/23 ashwagandha root extract 300 mg 300 mg PO DAILY 04/12/23 10/20/23 capsule fluoxetine 20 mg capsule 20 mg PO DAILY 04/12/23 10/20/23 ginkgo biloba 40 mg tablet 40 mg PO DAILY 04/12/23 10/20/23 multivitamin 1 tab PO QAM 04/12/23 10/20/23 omega-3 fatty acids-fish oil 684 1 cap PO DAILY 04/12/23 10/20/23 mg-1,200 mg capsule,delayed release clopidogrel 75 mg tablet 75 mg PO DAILY 10/20/23 10/20/23 coenzyme Q10 200 mg/gram oral mg PO 10/20/23 10/20/23 powder (H2Q CoQ10) Previous Rx's Medication Instructions Recorded losartan 50 mg tablet 50 mg PO BID #180 tabs 04/01/21 amlodipine 5 mg tablet 5 mg PO DAILY #30 tabs 04/12/23 Allergies Allergy/AdvReac Type Severity Reaction Status Date / Time No Known Allergies Allergy Verified 10/20/23 11:37 Review of Systems Const: Denies: fever(s), chills, body aches or change in appetite ENMT: Denies: throat pain or dental pain Card: Denies: chest pain Resp: Reports: dyspnea GI: Denies: abdominal pain, nausea, vomiting or diarrhea Musc: Denies: neck pain or back pain Skin/Breast: Denies: rash Neuro: Denies: headache(s) [facility] ED PFSH: Medical History (Updated 04/17/24 @ 14:14 by Florian Parnell MD) Essential hypertension Tremor due to disorder of central nervous system Cerebrovascular accident (CVA) after heart procedure Hypertension BPH (benign prostatic hyperplasia) Bradycardia Surgical History Hx of tonsillectomy Hx of vasectomy Hx of transurethral resection of prostate 1997, 1994 Family History Other BPH (benign prostatic hyperplasia) Hypertension Social History Smoking and tobacco/nicotine status: never used tobacco/nicotine Alcohol intake: current Alcohol intake frequency: other Substance/Drug Use: never Physical Exam Const: COMMON NORMALS: no acute distress, patient oriented x3 and healthy appearing HENMT: COMMON NORMALS: normocephalic and atraumatic HEAD & SCALP: normocephalic and atraumatic Eye: COMMON NORMALS: Equal, round and reactive pupils present and EOMs intact bilaterally PUPIL: Yes Equal, round and reactive pupils present Neck/C-Spine: COMMON NORMALS: full ROM and supple Chest: COMMONS NORMALS: normal inspection of the chest and normal palpation of entire chest wall Resp: COMMON NORMALS: normal respiratory effort, No retractions, No use of accessory muscles and clear to auscultation bilaterally AUSCULTATION: clear to auscultation bilaterally Cardio: COMMON NORMALS: regular rate, regular rhythm and No murmurs present (Cardio) RATE: regular rate RHYTHM: regular rhythm GI: COMMON NORMALS: Normal to inspection, nondistended, normoactive bowel sounds present, Soft to palpation, non-tender and no masses PALPATION: Yes Soft to palpation Extremity: COMMON NORMALS: normal to inspection and full ROM Neuro: COMMON NORMALS: patient oriented x3, moves all extremities and no focal motor deficits Psych: COMMON NORMALS: mental status grossly normal, Normal thought process present and cooperative THOUGHT PROCESS: Normal thought process present Skin: COMMON NORMALS: no rashes or lesions noted and no wounds GENERAL SKIN EXAM: no rashes or lesions noted Course Vital Signs: Vital signs: Vital Signs Temperature 97.7 F 04/17/24 12:02 Pulse Rate 79 04/17/24 14:02 Respiratory Rate 17 04/17/24 12:02 Blood Pressure 126/87 04/17/24 14:02 Pulse Oximetry 93 04/17/24 14:02 Oxygen Delivery Me thod Nasal Cannula 04/17/24 13:18 Oxygen Flow Rate 4 04/17/24 13:18 MDM - SOB/Dyspnea Medical Decision Making Patient presents for saddle pulmonary embolism he is hypoxic blood pressure has been stable start him on heparin drip I did speak to [facility] will transfer there for higher capability as he possibly may need a thrombectomy Medical Records I reviewed the patient's medical records. Lab Data I reviewed the patient's lab results. 04/17/24 12:13 04/17/24 12:34 Labs/Radiology: Radiology Impressions Chest X-Ray 04/17/24 12:04 IMPRESSION: No acute findings. Chest CTA 04/17/24 12:50 IMPRESSION: 1. Bilateral pulmonary emboli with a saddle embolus present. 2. Elevated RV LV ratio = 1.9 suggesting right heart strain. 3. Calcified coronary artery disease. COMMENTS: Consistent with the [place] [employer]'s Incidental Findings Committee white paper (J Am Yajaira Radiol 2018): Any incidental renal lesion less than 1 cm or classified as too small to characterize, or any incidental cystic renal lesion characterized as simple-appearing, is likely benign. No follow-up imaging is recommended for these lesions per consensus recommendations based on imaging criteria. ADDENDUM: 04/17/24 [id number] COMMENT: THIS REPORT CONTAINS FINDINGS THAT MAY BE CRITICAL TO PATIENT CARE. The exam findings were verbally communicated by me to FLORIAN PARNELL via telephone conference at 2:03 PM [employer] on 04/17/2024. The findings were acknowledged and understood. Laboratory Results WBC 6.61 10^3/uL (3.29-11.43) 04/17/24 12:13 RBC 4.47 10^6/uL (3.85-5.65) 04/17/24 12:13 Hgb 13.70 g/dL (11.27-16.99) 04/17/24 12:13 Hct 41.6 % (37-53) 04/17/24 12:13 MCV 93.1 fl (82-101) 04/17/24 12:13 MCH 30.6 pg (27-33) 04/17/24 12:13 MCHC 32.9 g/dL (30-55) 04/17/24 12:13 RDW 12.7 % (12.1-15.1) 04/17/24 12:13 Plt Count 217 10^3/cmm (157-399) 04/17/24 12:13 MPV 10.7 fL (7.4-10.4) H 04/17/24 12:13 Neut % (Auto) 70.9 % 04/17/24 12:13 Lymph % (Auto) 18.6 % 04/17/24 12:13 [place] % (Auto) 8.5 % 04/17/24 12:13 Eos % (Auto) 1.4 % 04/17/24 12:13 Baso % (Auto) 0.3 % 04/17/24 12:13 Neut # (Auto) 4.69 10^3/uL (1.8-7.7) 04/17/24 12:13 Lymph # (Auto) 1.2 10^3/uL (0.8-4.8) 04/17/24 12:13 [place] # (Auto) 0.6 10^3/uL (0.2-0.9) 04/17/24 12:13 Eos # (Auto) 0.1 10^3/uL (0.0-0.8) 04/17/24 12:13 Baso # (Auto) 0.0 10^3/uL (0.0-0.1) 04/17/24 12:13 Nucleated RBC % (auto) 0 % 04/17/24 12:13 Nucleated RBCs # 0.0 /100WBC 04/17/24 12:13 D-Dimer >= 20.00 ug/mLFEU (0-0.59) H 04/17/24 12:13 Specimen Type Arterial 04/17/24 12:17 Sample Site Radial, right 04/17/24 12:17 ABG pH 7.43 (7.35-7.45) 04/17/24 12:17 ABG pCO2 34.9 mmHg (35-45) L 04/17/24 12:17 ABG pO2 65.7 mmHg (80.0-100.0) L 04/17/24 12:17 ABG PO2/FiO2 Ratio 182 04/17/24 12:17 ABG HCO3 22.9 mmol/L (22-26) 04/17/24 12:17 ABG Base Excess -0.9 mmol/L (-2.0-2.0) 04/17/24 12:17 Garth Test Pos 04/17/24 12:17 Hematocrit 42.2 % (42-52) 04/17/24 12:17 Hgb O2 Saturation 92.8 % (95-100) L 04/17/24 12:17 Carboxyhemoglobin 1.0 %THgb (0.4-20.1) 04/17/24 12:17 Methemoglobin 0.2 % (0.4-1.5) L 04/17/24 12:17 Total Hemoglobin 13.8 g/dL (14-18) L 04/17/24 12:17 O2 Delivery Device Nc 04/17/24 12:17 O2 Liters/Min 4.0 % 04/17/24 12:17 FiO2 36.0 % 04/17/24 12:17 Washing Machine Installer ID Antonio 04/17/24 12:17 Sodium 143 mmol/L (136-145) 04/17/24 12:34 Potassium 3.7 mmol/L (3.5-5.1) 04/17/24 12:34 Chloride 107 mmol/L (98-107) 04/17/24 12:34 Carbon Dioxide 22 mmol/L (22-29) 04/17/24 12:34 Anion Gap 17.7 (5-19) 04/17/24 12:34 BUN 20 mg/dL (8-23) 04/17/24 12:34 Creatinine 0.9 mg/dL (0.7-1.2) 04/17/24 12:34 GFR Calculation Not Reportable 04/17/24 12:34 Glucose 142 mg/dL (65-115) H 04/17/24 12:34 Calculated Osmolality 301 mOsm/kg (285-295) H 04/17/24 12:34 Calcium 8.6 mg/dL (8.5-10.5) 04/17/24 12:34 Total Bilirubin 0.2 mg/dL (0.15-1.2) 04/17/24 12:34 AST 17 U/L (0-40) 04/17/24 12:34 ALT 21 U/L (0-41) 04/17/24 12:34 Alkaline Phosphatase 146 U/L (40-130) H 04/17/24 12:34 Troponin T Baseline 59 ng/L (0-15) H 04/17/24 12:34 NT-Pro-B Natriuret Pep 127 pg/mL (0-450) 04/17/24 12:34 Total Protein 6.2 g/dL (6.6-8.7) L 04/17/24 12:34 Albumin 3.9 g/dL (3.5-5.2) 04/17/24 12:34 Globulin 2.3 g/dL (1.3-4.6) 04/17/24 12:34 All radiology interpretation(s) finalized by discharge EKG Data EKG 1: I personally reviewed and interpreted this EKG as follows: EKG Interpretation Date: 04/17/24 EKG interpretation time: 12:18 Interpretation: nsr hr [address] elevation qrs 107 qtc 407 Critical Care Time Critical Care Time: Critical Care Time: Yes Total Critical Care Time: 45 Attestation: The high probability of a clinically significant, sudden or life threatening deterioration of the patient's resp system(s) required my full and direct attention, intervention and personal management. The critical care time is as shown. This time is in addition to time spent performing any reported procedures but includes the following: [x] Data and vital sign review and interpretation [x] Patient assessment, examination and intervention [x] Documentation [x] Medication orders and management Discharge Plan Discharge Patient Disposition: Xfer Short-Term Hosp Clinical Impression: Pulmonary embolism Condition: Stable Referrals: Kandis Holm MD [Primary Care Provider] - Coding Level of Care Code ED Clinical Nurse Educator for Chg Cecile
[2024-04-17 12:48] LABS: D Dimer >= 20.00 ug/mLFEU (0-0.59)
--- NOTE | 2024-04-17 12:50 | CTR_ITS ---
PROCEDURE INFORMATION: Exam: CTA Chest With Contrast Exam date and time: 04/17/2024 1:40 PM Age: 89 years old Clinical indication: Shortness of breath; Additional info: SOB TECHNIQUE: Imaging protocol: Computed tomographic angiography of the chest with contrast. Exam focused on the arteries. 3D rendering (Not supervised by radiologist): MIP and/or 3D reconstructed images were created by the technologist. Radiation optimization: All CT scans at this facility use at least one of these dose optimization techniques: automated exposure control; mA and/or kV adjustment per patient size (includes targeted exams where dose is matched to clinical indication); or iterative reconstruction. Contrast material: OMNI 350; Contrast volume: 83 ml; Contrast route: INTRAVENOUS (IV); COMPARISON: CR (CHEST, ) 04/17/2024 12:43 PM RADIATION DOSE METRICS: Total DLP (mGy-cm): 307.41 FINDINGS: Pulmonary arteries: Bilateral pulmonary emboli with a saddle embolus present. 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 Lungs: Trace subsegmental atelectasis of the lung bases. Pleural spaces: Unremarkable. No pneumothorax. No pleural effusion. Heart: Mild cardiomegaly. No pericardial effusion. RV/LV ratio = 1.9 (elevated) suggesting right heart strain. Coronary arteries: Calcified coronary artery disease. Lymph nodes: Unremarkable. No enlarged lymph nodes. Kidneys: Partially imaged cysts in the upper pole left kidney. The portion of the cyst which is visualized measures about 5.1 cm in diameter. Bones/joints: Unremarkable. No acute fracture. Soft tissues: Unremarkable. CT/CT angio chest PE protcl [id number] IMPRESSION: 1. Bilateral pulmonary emboli with a saddle embolus present. 2. Elevated RV LV ratio = 1.9 suggesting right heart strain. 3. Calcified coronary artery disease. COMMENTS: Consistent with the [place] [employer]'s Incidental Findings Committee white paper (J Am Yajaira Radiol 2018): Any incidental renal lesion less than 1 cm or classified as too small to characterize, or any incidental cystic renal lesion characterized as simple-appearing, is likely benign. No follow-up imaging is recommended for these lesions per consensus recommendations based on imaging criteria.
[2024-04-17 12:58] LABS: Troponin(5th) Baseline 59 ng/L (0-15)
[2024-04-17 13:05] LABS: Alanine Aminotransferase 21 U/L (0-41); Albumin Level 3.9 g/dL (3.5-5.2); Alkaline Phosphatase 146 U/L (40-130); Anion Gap 17.7 (5-19); Aspartate Amino Transferase 17 U/L (0-40); Blood Urea Nitrogen 20 mg/dL (8-23); Calcium 8.6 mg/dL (8.5-10.5); Carbon Dioxide 22 mmol/L (22-29); Chloride 107 mmol/L (98-107); Creatinine Clr Calc Pharmacy 54.8058; Globulin 2.3 g/dL (1.3-4.6); Glucose 142 mg/dL (65-115); NT Pro B Type Natriuretic Pept 127 pg/mL (0-450); Osmolality Calculated 301 mOsm/kg (285-295); Potassium 3.7 mmol/L (3.5-5.1); Sodium 143 mmol/L (136-145); Total Bilirubin 0.2 mg/dL (0.15-1.2); Total Protein 6.2 g/dL (6.6-8.7)
[2024-04-17 13:18] VITALS: BP 122/84; PULSE 79; O2SAT 96
[2024-04-17] MEDS: iohexol 350 mg/mL 500 mL Btl (per mL) IV (13:43)
--- NOTE | 2024-04-17 14:01 | ECG_ITS ---
[facility] Test Date: 2024-04-17 Pat Name: Ez Wren Department: Room: Gender: Male Welcome Hostess: : 1935 Requested By: Yue Mishra Order Number: [id number] Martin MD: Eric Whitten M.D. Measurements Intervals Strang Rate: 78 P: 52 MD: 218 QRS: -44 QRSD: 96 T: 12 QT: 381 QTc: 434 Interpretive Statements SINUS RHYTHM WITH FIRST DEGREE AV BLOCK LEFT AXIS DEVIATION [QRS AXIS < -30] INCOMPLETE RIGHT BUNDLE BRANCH BLOCK [90+ ms QRS DURATION, TERMINAL R IN V1/V2, 40+ ms S IN I/aVL/V4/V5/V6] POSSIBLE ANTERIOR MYOCARDIAL INFARCTION , OF INDETERMINATE AGE [30 ms Q WAVE IN V3/V4, OR R < 0.2 mV IN V4] Compared to ECG 04/17/2024 12:18:14 Left-axis deviation now present Left anterior fascicular block no longer present Myocardial infarct finding still present Electronically Signed On 04-17-2024 17:42:53 X RAY PHYSICIAN by Eric Whitten M.D. [email or web address]
[2024-04-17 14:02] VITALS: BP 126/87; PULSE 79; O2SAT 93
[2024-04-17] MEDS: heparin 5,000 unit/mL INJ 1 mL IVP (14:12)
[2024-04-17] MEDS: heparin drip 25,000 UNIT/500 ML PREMIX 19 UNIT IV (14:12)
--- NOTE | 2024-04-17 14:29 | PC.NURSE ---
report called to [facility] nurse, Abbie Aviles RN. pt updated of status of transfer attempted to call [employer] for flight transport, [employer] denied d/t weather
[2024-04-17 14:45] VITALS: BP 137/82; PULSE 82; O2SAT 96
[2024-04-17 14:59] VITALS: BP 132/87; PULSE 82; O2SAT 96
--- NOTE | 2024-04-17 14:59 | PC.NURSE ---
report given to [facility] @[id number]
[2024-04-17 15:05] LABS: Troponin 5 2HR 202.8 ng/L (0-15); Troponin 5 2HR Delta 143.8 ABS# (0-10)
--- NOTE | 2024-04-18 10:43 | PC.SOCIAL ---
Records faxed to [facility].
== END 2024-04-17 15:02 | disposition short-term general hospital (02) ==
PROVIDERS: Emergency Medicine; Emergency Provider Emergency Medicine; PCP Family Medicine
DX: I26.99 Other pulmonary embolism without acute cor pulmonale (principal)
CPT/HCPCS: 36600; 71045; 71275; 80053; 82805; 83880; 84484; 85025; 85378; 93005; 96374; 99285; J1644

== ENCOUNTER 2024-05-11 20:06 | Emergency (ER) | payer OTHER, MEDICARE, SELFPAY ==
[2024-05-11] VITALS (15 sets, daily range): BP systolic 128–155; BP diastolic 73–89; PULSE 66–73; RESP 20; TEMP 37.1; O2SAT 93–97; BMI 23.6
--- NOTE | 2024-05-11 20:25 | USR_ITS ---
PROCEDURE INFORMATION: Exam: US Duplex Left Lower Extremity Veins, Limited Exam date and time: 05/11/2024 11:14 PM Age: 89 years old Clinical indication: Edema, localized; Lower extremity, left; Additional info: Swelling to L leg, pain behind L knee. Recent pe. 04/17/24 TECHNIQUE: Imaging protocol: Real-time duplex ultrasound of the left extremity with 2-D franco scale, color Doppler flow and spectral waveform analysis including responses to compression and other maneuvers (when performed) with image documentation. Limited exam focused on the left lower extremity veins. COMPARISON: No relevant prior studies available. FINDINGS: Left deep veins: Unremarkable. The common femoral, femoral, proximal profunda femoral and popliteal veins are patent without thrombus. Normal Doppler waveforms. Normal compressibility and/or augmentation response. Occlusive thrombus in the left peroneal vein. Superficial veins: Greater saphenous vein at the saphenofemoral junction is patent without thrombus. Soft tissues: Unremarkable. US/[place] [id number] IMPRESSION: Occlusive thrombus in the left peroneal vein.
--- NOTE | 2024-05-11 22:45 | ED_ITS ---
HPI - Extremity Problem General: Chief complaint: Extremity Injury, Lower Stated complaint: Leg pain Time Seen by Provider: 05/11/24 20:11 Source: patient and family Mode of arrival: ambulatory Limitations: no limitations History of Present Illness: Patient presenting with left leg pain, having for about 5 to 10 minutes behind the left knee felt hot at that time per his . Does have some mild but noticeable swelling in the left leg compared to right. 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 Episode happened just prior to arrival. MD Complaint: extremity pain and extremity swelling Related Data Home Medications Medication Instructions Recorded Confirmed B-complex with vitamin C 1 tab PO DAILY 02/04/20 04/17/24 finasteride 5 mg tablet 5 mg PO DAILY 02/04/20 04/17/24 ibuprofen 200 mg tablet 200 mg PO BEDTIME PRN Pain 08/04/20 04/17/24 milk thistle 150 mg capsule 150 mg PO DAILY 08/04/20 04/17/24 saw palmetto 160 mg capsule 160 mg PO BID 08/04/20 04/17/24 ashwagandha root extract 300 mg 300 mg PO DAILY 04/12/23 04/17/24 capsule fluoxetine 20 mg capsule 20 mg PO DAILY 04/12/23 04/17/24 ginkgo biloba 40 mg tablet 40 mg PO DAILY 04/12/23 04/17/24 multivitamin 1 tab PO QAM 04/12/23 04/17/24 omega-3 fatty acids-fish oil 684 1 cap PO DAILY 04/12/23 04/17/24 mg-1,200 mg capsule,delayed release clopidogrel 75 mg tablet 75 mg PO DAILY 10/20/23 04/17/24 coenzyme Q10 200 mg/gram oral 200 mg PO DAILY 10/20/23 04/17/24 powder (H2Q CoQ10) aspirin 81 mg tablet,delayed 81 mg PO DAILY 04/17/24 04/17/24 release (Megan Low Dose Aspirin) rosuvastatin 10 mg tablet 5 mg PO DAILY 04/17/24 04/17/24 Previous Rx's Medication Instructions Recorded losartan 50 mg tablet 50 mg PO BID #180 tabs 04/01/21 amlodipine 5 mg tablet 5 mg PO DAILY #30 tabs 04/12/23 Allergies Allergy/AdvReac Type Severity Reaction Status Date / Time No Known Allergies Allergy Verified 10/20/23 11:37 [facility] ED PFSH: Medical History (Updated 05/12/24 @ 00:21 by Bridger Phillips MD) Essential hypertension Tremor due to disorder of central nervous system Cerebrovascular accident (CVA) after heart procedure Hypertension BPH (benign prostatic hyperplasia) Bradycardia Surgical History Hx of tonsillectomy Hx of vasectomy Hx of transurethral resection of prostate 1997, 1994 Family History Other BPH (benign prostatic hyperplasia) Hypertension Social History Smoking and tobacco/nicotine status: never used tobacco/nicotine Alcohol intake: current Alcohol intake frequency: other Substance/Drug Use: never Physical Exam Const: COMMON NORMALS: no acute distress, average body habitus, patient oriented x3, healthy appearing, alert and well nourished GENERAL APPEARANCE: well kempt and well developed HENMT: COMMON NORMALS: normocephalic, atraumatic, external ears normal and moist oral mucous membranes HEAD & SCALP: normocephalic and atraumatic EXTERNAL EAR: Yes external ears normal Eye: COMMON NORMALS: Equal, round and reactive pupils present, EOMs intact bilaterally and conjunctivae normal CONJUNCTIVA: Yes conjunctivae normal PUPIL: Yes Equal, round and reactive pupils present Neck/C-Spine: COMMON NORMALS: full ROM, no lymphadenopathy and supple Chest: CHEST: Yes Symmetrical chest wall rise and No Surgical scars present (Chest) Resp: COMMON NORMALS: normal respiratory effort, No retractions, No use of accessory muscles and clear to auscultation bilaterally AUSCULTATION: clear to auscultation bilaterally Cardio: COMMON NORMALS: regular rate, regular rhythm, S1 normal heart sound present, S2 normal heart sound present, No gallops present (Cardio), No clicks present (Cardio), No murmurs present (Cardio) and No rub (Cardio) RATE: regular rate RHYTHM: regular rhythm HEART SOUNDS: S1 normal heart sound present, S2 normal heart sound present and no murmurs PERIPHERAL PULSES: other (Radial pulses 2+ and symmetric) GI: COMMON NORMALS: Soft to palpation, non-tender and no masses INSPECTION: No abdominal distension PALPATION: Yes Soft to palpation, No Guarding due to palpation present (GI) and No Rebound tenderness present : COMMON NORMALS: Yes no CVA tenderness BLADDER/KIDNEY EXAM: Yes no CVA tenderness Back/Pelvis: COMMON NORMALS: no CVA tenderness Extremity: COMMON NORMALS: normal to inspection, full ROM, capillary refill normal and no clubbing, cyanosis or edema GENERAL: Yes normal exam except as noted (Mild tenderness behind the left knee and 1+ edema of the L ankle) Neuro: COMMON NORMALS: patient oriented x3 SENSORIUM/ORIENTATION: Yes alert Psych: APPEARANCE: Yes well kempt Skin: COMMON NORMALS: no rashes or lesions noted, no wounds, turgor normal and no jaundice GENERAL SKIN EXAM: no rashes or lesions noted and turgor normal Course Reevaluation(s): Reevaluation #1: Patient still has no pain, discussed results of ultrasound. Also discussed medication options. Patient to continue his Eliquis 5 mg twice daily and follow-up with primary care in 1 to 2 weeks for repeat ultrasound. If pain returns or swelling worsens follow-up sooner. Patient's expressed understanding. 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 Time: 00:18 Vital Signs: Vital signs: Vital Signs Temperature 98.8 F 05/11/24 20:13 Pulse Rate 72 05/11/24 20:13 Respiratory Rate 20 H 05/11/24 20:13 Blood Pressure 155/90 05/12/24 00:00 Pulse Oximetry 96 05/12/24 00:00 MDM - Extremity (Nontraumatic) Medical Decision Making Patient still has no pain, discussed results of ultrasound. Also discussed medication options. Patient to continue his Eliquis 5 mg twice daily and follow-up with primary care in 1 to 2 weeks for repeat ultrasound. If pain returns or swelling worsens follow-up sooner. Patient's expressed understanding. 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 Medical Records I reviewed the patient's medical records. Lab Data I reviewed the patient's lab results. XR interpretation done by ED provider, pending radiology final review ED provider radiology interpretation(s): L Peroneal DVT Discharge Plan Discharge Patient Disposition: Home Clinical Impression: Anticoagulant long-term use DVT of leg (deep venous thrombosis) Qualifiers: Affected thrombotic vein of extremity: peroneal Chronicity: acute Laterality: left Qualified Code(s): I82.452 - Acute embolism and thrombosis of left peroneal vein Condition: Stable Prescriptions: No Action finasteride 5 mg tablet 5 mg PO DAILY B-complex with vitamin C Tablet 1 tab PO DAILY H2Q CoQ10 200 mg/gram powder 200 mg PO DAILY clopidogrel 75 mg tablet 75 mg PO DAILY losartan 50 mg tablet 50 mg PO BID Qty: 180 3RF ibuprofen 200 mg Tablet 200 mg PO BEDTIME PRN (Reason: Pain) milk thistle 150 mg Capsule 150 mg PO DAILY saw palmetto 160 mg Capsule 160 mg PO BID multivitamin [Multi-Vitamins] Tablet 1 tab PO QAM ginkgo biloba [Ginkoba] 40 mg Tablet 40 mg PO DAILY Rx Instructions: give with meal/snack fluoxetine 20 mg capsule 20 mg PO DAILY [place] 3 Fish Oil 684-1,200 mg Capsule,Delayed Release(Dr/Ec) 1 cap PO DAILY ashwagandha root extract 300 mg Capsule 300 mg PO DAILY amlodipine 5 mg tablet 5 mg PO DAILY Qty: 30 0RF aspirin [Megan Low Dose Aspirin] 81 mg Tablet,Delayed Release (Dr/Ec) 81 mg PO DAILY rosuvastatin 10 mg tablet 5 mg PO DAILY Discharge Orders: Discharge ED (Routine); Ordered 05/12/24 Ordered By: Bridger Phillips Referrals: Kandis Holm MD [Primary Care Provider] - Discharge Diet: Usual diet Discharge Activity: Resume usual activity Patient Instructions: Deep Vein Thrombosis (ED) Activity Restrictions/Additional Instructions: Continue your Eliquis as prescribed. Follow-up primary care in 1 to 2 weeks for a repeat ultrasound in 2 weeks. Coding Level of Care Code ED Sports Journalist for Garrick Huber
[2024-05-12] VITALS: BP 155/90; O2SAT 96
[2024-05-12 00:06] VITALS: PULSE 73
[2024-05-12 00:15] VITALS: BP 140/86; PULSE 76; O2SAT 95
[2024-05-12] MEDS: enoxaparin 80 mg/0.8 mL Syringe 70 MG SUBCUT (00:17)
[2024-05-12 00:44] VITALS: BP 140/86; PULSE 76; RESP 18; O2SAT 95
== END 2024-05-12 00:49 | disposition home or self-care (01) ==
PROVIDERS: Emergency Provider Emergency Medicine; PCP Family Medicine
DX: I82.452 Acute embolism and thrombosis of left peroneal vein (principal); Z79.01 Long term (current) use of anticoagulants; Z79.02 Long term (current) use of antithrombotics/antiplatelets; Z79.82 Long term (current) use of aspirin; Z86.73 Personal history of transient ischemic attack (TIA), and cerebral infarction without residual deficits; I10 Essential (primary) hypertension
CPT/HCPCS: 93971; 96372; 99284; J1650

== ENCOUNTER → 2024-06-07 09:13 | Outpatient (BNVA) | payer OTHER, SELFPAY | PROVIDERS: PCP Family Medicine; Visit Provider Internal Medicine Cardiovascular Disease | DX: I10 Essential (primary) hypertension (principal); R00.1 Bradycardia, unspecified; Z86.711 Personal history of pulmonary embolism; Z86.718 Personal history of other venous thrombosis and embolism; Z79.01 Long term (current) use of anticoagulants; I49.3 Ventricular premature depolarization; I49.1 Atrial premature depolarization | CPT/HCPCS: 99214 ==

== ENCOUNTER 2024-07-02 12:04 | Outpatient (CLI) | payer OTHER, SELFPAY ==
--- NOTE | 2024-07-02 12:00 | USCV_ITS ---
Ez Wren Age: 89 Gender: M : 1935 Exam Date: 07/02/2024 12:32 Ordering Phys: Abdulaziz Issa MD ([email or web address]) Technologist: Exam Location: [facility] [place]ication: hx of pe BP: 130 / 80 HR: 84 Rhythm: Sinus Technical Quality: Adequate MEASUREMENTS (Male / Female) Normal Values 2D ECHO LV Diastolic Diameter PLAX 4.7 cm 4.2 - 5.9 / 3.9 - 5.3 cm IVS Diastolic Thickness 1.4 cm 0.6 - 1.0 / 0.6 - 0.9 cm IVS Systolic Thickness 1.6 cm LVPW Diastolic Thickness 1.3 cm 0.6 - 1.0 / 0.6 - 0.9 cm LVPW Systolic Thickness 1.9 cm LVOT Diameter 2.1 cm LV Ejection Fraction 2D Teich 60.3 % LV Ejection Fraction MOD 4C 48.1 % LV Ejection Fraction MOD 2C 58.1 % LV Ejection Fraction 2C AL 59.2 % LA Diameter 3.3 cm RA Systolic Volume 4C AL 18.7 ml RA Systolic Volume 4C MOD 18.4 ml Aorta at Sinotubular Diameter 4.2 cm M-MODE LA Ao Ratio MM 1.3 AV Cusp Separation MM 1.4 cm DOPPLER AV Peak Velocity 151.5 cm/s LVOT Peak Velocity 71.0 cm/s AV Area Cont Eq vti 1.8 cm squared AV Area Cont Eq pk 1.6 cm squared MV Area PHT 3.1 cm squared Mitral E to A Ratio 0.7 TV Peak Velocity 179.0 cm/s TR Peak Velocity 209.0 cm/s TR Peak Gradient 17.5 mmHg TV Peak E Velocity 86.0 cm/s PV Peak Velocity 114.0 cm/s FINDINGS Left Ventricle Left ventricle is normal in size. LV systolic function is borderline normal with EF of 50-55%. Mild global hypokinesis. Grade 1 diastolic dysfunction Right Ventricle Normal in size and function Right Atrium Normal in size Left Atrium Normal in size Mitral Valve Structurally normal mitral valve. Mild mitral regurgitation Aortic Valve Aortic valve is thickened. No significant stenosis or regurgitation. Tricuspid Valve Mild tricuspid regurgitation. Insufficient TR jet to calculate RVSP Pulmonic Valve Not well visualized Pericardium Normal Aorta Grossly appears to be dilated IVC Not visualized CONCLUSIONS LV systolic function is borderline normal with EF of 50-55% Mild mitral regurgitation Mild tricuspid regurgitation Grossly aorta appears to be dilated. Steve Crawford MD (Electronically Signed) Final Date: 17 July 2024 11:10 S
--- NOTE | 2024-07-02 12:45 | USCV_ITS ---
Ez Wren Age: 89 Gender: M : 1935 Exam Date: 07/02/2024 12:52 Ordering Phys: Abdulaziz Issa MD ([email or web address]) Technologist: Exam [place] [facility] [place]: hx of dvt and pe PROCEDURES: The venous duplex Doppler examination of both lower extremities was performed in the standard fashion. The following venous structures were evaluated: common femoral vein, profunda vein, proximal portion of the greater saphenous vein, superficial femoral vein, and the popliteal vein. FINDINGS: There is dvt in the rt perineal trunk. The rest of the rt leg is normal. The patient said he had dvt in the lt leg there is no dvt in lt leg at present. CONCLUSIONS DVT RIGHT peroneal trunk Remainder of RLE is patent No dvt LLE Kobe Nunez MD (Electronically Signed) Final Date: 02 July 2024 15:54 S
== END 2024-07-02 12:05 | disposition home or self-care (01) ==
LOC: RAD 12:05
PROVIDERS: PCP Family Medicine; Visit Provider Internal Medicine Cardiovascular Disease
DX: I26.99 Other pulmonary embolism without acute cor pulmonale (principal); I97.820 Postprocedural cerebrovascular infarction following cardiac surgery; I82.890 Acute embolism and thrombosis of other specified veins
CPT/HCPCS: 93306; 93970

== ENCOUNTER → 2024-07-16 10:46 | Outpatient (BNVA) | payer OTHER, SELFPAY | PROVIDERS: PCP Family Medicine; Visit Provider Nurse Practitioner Family | DX: F42.4 Excoriation (skin-picking) disorder (principal); L81.4 Other melanin hyperpigmentation; L82.1 Other seborrheic keratosis; D18.01 Hemangioma of skin and subcutaneous tissue; Z08 Encounter for follow-up examination after completed treatment for malignant neoplasm; Z85.828 Personal history of other malignant neoplasm of skin; D48.5 Neoplasm of uncertain behavior of skin; L57.0 Actinic keratosis | CPT/HCPCS: 11102; 17000; 99213 ==

== ENCOUNTER → 2024-08-19 12:39 | Outpatient (BNVA) | payer OTHER, SELFPAY | PROVIDERS: PCP Family Medicine; Visit Provider Dermatology | DX: Z08 Encounter for follow-up examination after completed treatment for malignant neoplasm (principal); Z85.828 Personal history of other malignant neoplasm of skin; C44.519 Basal cell carcinoma of skin of other part of trunk; L57.0 Actinic keratosis | CPT/HCPCS: 17000; 17262; 99213 ==

== ENCOUNTER → 2024-11-07 15:24 | Outpatient (BNVA) | payer OTHER, SELFPAY | PROVIDERS: PCP Family Medicine; Visit Provider Nurse Practitioner Family | DX: L81.4 Other melanin hyperpigmentation (principal); D18.01 Hemangioma of skin and subcutaneous tissue; Z08 Encounter for follow-up examination after completed treatment for malignant neoplasm; Z85.828 Personal history of other malignant neoplasm of skin; D48.5 Neoplasm of uncertain behavior of skin | CPT/HCPCS: 11102; 99213 ==

== ENCOUNTER 2024-11-22 05:00 | Outpatient (RCR) | payer OTHER, MEDICARE, SELFPAY | END 2024-12-22 23:59 | disposition home or self-care (01) | LOC: SPT 05:00 | PROVIDERS: PCP Family Medicine; Visit Provider Family Medicine | DX: M62.81 Muscle weakness (generalized) (principal); C44.319 Basal cell carcinoma of skin of other parts of face; Z08 Encounter for follow-up examination after completed treatment for malignant neoplasm; Z85.828 Personal history of other malignant neoplasm of skin | CPT/HCPCS: 17282; 97110; 97161; 99213 ==

== ENCOUNTER 2024-12-04 09:02 | Emergency (ER) | payer OTHER, MEDICARE, SELFPAY ==
--- OUTSIDE RECORDS SUMMARY | 2024-11-14 04:00 | XMS_ITS | Encounter Summary ---
Author Name [facility] [place] Organization [facility] [place] Address [address] [place] [address] Care Team Providers Care Senior Property Accountant Name Role Phone TRAV ARAMBULA Primary Care Provider Unavailabl e Insurance Providers: All historical and current Section Date Range: From patient's date of to the date document was created. This section includes the names of all active insurance providers for the patient. Insurance Provider Type of Coverage Plan Name Start of Policy Coverage End of Policy Coverage Group Number Member ID Insurance Provider's Telephone Number Policy Everett's Name Patient's Relationship to Policy Everett DEYANIRA [facility] ([place]NR) [place] Apr 24, 2021 [id number] [phone] KEYANNA ELIZABETH PATIENT Selected Encounter This section includes the information on record at [place] for the Encounter. Date/Time Encounter Type Encounter Description Reason Provider Source Nov 14, 2024 09:00 AM Outpatient Encounter PRIMARY CARE/MEDICINE ICD-10-CM Z00.01 Encounter for general adult medical exam w abnormal findings TRAV ARAMBULA Alejandra Encounter Template Text not used by [place] Assessments - Encounter Diagnoses This section includes the primary and secondary diagnoses documented for the Encounter. Date/Time Primary/Secondary Diagnosis Diagnosis Name Provider Source Nov 14, 2024 10:09 AM PRIMARY Encounter for general adult medical exam w abnormal findings TRAV ARAMBULA [facility] Nov 14, 2024 10:09 AM SECONDARY Essential (primary) hypertension TRAV ARAMBULA [facility] Nov 14, 2024 10:09 AM SECONDARY Essential tremor TRAV ARAMBULA [place] [facility] Nov 14, 2024 10:09 AM SECONDARY Muscle weakness (generalized) TRAV ARAMBULA [facility] Nov 14, 2024 10:09 AM SECONDARY Unsp dementia, unsp severity, without beh/psych/mood/anx TRAV ARAMBULA [place] [facility] Nov 14, 2024 10:09 AM SECONDARY Unspecified abnormalities of gait and mobility TRAV ARAMBULA [facility] Plan of Treatment: Future Appointments (+ 6 months) and Future Tests (+/- 45 days) The Plan of Treatment section includes future care activities for the patient [facility] This section includes future appointments and future orders which are active, pending or scheduled. Future Appointments This section includes appointments that were scheduled to occur 6 months from the date of the Encounter, up to a maximum of 20 appointments. The data comes from all [facility]. Appointment Date/Time Appointment Type Appointme nt Facility Name Dec 05, 2024 09:30 AM [facility] Dec 09, 2024 08:00 AM AMBULATORY - NONE [facility] Active, Pending, and Scheduled Orders This section includes a listing of several types of active, pending, and scheduled orders, including clinic medications orders, diagnostic test orders, procedure orders and consult orders; where the start date of the order is 45 days before the date of the Encounter or 45 days after the date of theEncounter. The data comes from all [facility]. Test Date/Time Test Type Test Details Facility Name Nov 14, 2024 10:02 AM Consult Order [facility]ITY [facility]-PHYSICAL THERAPY 657A4 [place] [facility] Dec 04, 2024 08:28 AM Consult Order [facility] 657A[address] [place] [facility] Lab Results: +/- 30 days of the encounter This section includes the Chemistry and Hematology Lab Results on record with DC for the patient. Radiology Reports and Pathology Reports are provided separately, in subsequent sections. Lab Results This section contains the Chemistry/Hematology Results that were resulted 30 days before or 30 daysafter the date of the Encounter. Date/Time Source Result Type Result - Unit Interpretation Reference Range Specimen Type Comment Oct 31, 2024 01:04 PM [facility] CB CBC BLOOD Specimen Type: BLOOD No comment entered. Ordering Provider: TRAV ARAMBULA Report Released Date/Time: Nov 07, 2023 01:47 PM Reporting Lab: [place] [facility] [address] [place] [address] Performing Lab: [place] [facility] [address] [place] [address] WBC 6.3 10*3/uL 3.6-11.2 RBC 4.92 10*6/uL 4.10-5.70 HGB 14.9 g/dL 13.1-16.8 HCT 43.7 38.2-48.4 MCV 88.8 fL 80.0-100.0 MCH 30.3 pg 27.0-34.0 MCHC 34.1 g/dL 33.0-36.0 PLT 273 10*3/uL 150-400 MPV 11.1 fL 7.5-11.2 RDW 12.5 11.8-15.1 LYMPHOCYTES, AUTO % 18.1 MONOCYTES, AUTO % 10.1 NEUTROPHILS, AUTO % 70.1 EOSINOPHILS, AUTO % 1.1 BASOPHILS, AUTO % 0.3 LYMPHOCYTES, ABSOLUTE 1.13 10*3/uL 0.77- 4.50 MONOCYTES, ABSOLUTE 0.63 10*3/uL 0.19-0. 8 NEUTROPHILS, ABSOLUTE 4.39 10*3/uL 2.10- 8.00 EOSINOPHILS, ABSOLUTE 0.07 10*3/uL 0.00- 0.60 BASOPHILS, ABSOLUTE 0.02 10*3/uL 0.00-0. 20 IMMATURE GRANS, AUTO % 0.3 IMMATURE GRANS, AUTO ABS 0.02 10*3/uL 0. 00-0.05 Oct 31, 2024 01:04 PM [facility] CB COMPREHENSIVE METABOLIC PANEL PLASMA Specimen Type: PLASMA No comment entered. Ordering Provider: TRAV ARAMBULA Report Released Date/Time: Nov 07, 2023 01:47 PM Reporting Lab: [place] [facility] [address] [place] [address] Performing Lab: [place] [facility] [address] [place] [address] CREATININE 0.84 mg/dL 0.7-1.3 UREA NITROGEN 16 mg/dL 9-25 GLUCOSE 125 mg/dL H 72-99 SODIUM 141 meq/L 136-145 POTASSIUM 3.9 meq/L 3.5-5 CHLORIDE 108 meq/L H 98-107 CARBON DIOXIDE 22 meq/L 22-31 CALCIUM 9.1 mg/dL 8.4-10.4 PROTEIN 7.3 g/dL 6-8.6 ALBUMIN 4.4 g/dL 3.4-5 TOTAL BILIRUBIN 0.4 mg/dL 0.2-1.2 ALKALINE PHOSPHATASE 107 U/L 40-150 AST/SGOT 26 U/L 5-34 ALT/SGPT 24 U/L 8-40 EGFR (CKD-EPI 2020) 83 Oct 31, 2024 01:04 PM [facility]OC B12 SERUM Specimen Type: SERUM No comment entered. Ordering Provider: TRAV ARAMBULA Report Released Date/Time: Nov 07, 2023 01:47 PM Reporting Lab: [place] [facility] [address] [place] [address] Performing Lab: [place] [facility] [address] [place] [address] B12 735 pg/mL 213-816 Oct 31, 2024 01:04 PM [facility] FOLATE (PB) SERUM Specimen Typ e: SERUM No comment entered. Ordering Provider: TRAV ARAMBULA Report Released Date/Time: Nov 07, 2023 01:47 PM Reporting Lab: [place] [facility] [address] [place] [address] Performing Lab: [place] [facility] [address] [place] [address] FOLATE (PB) 19.9 ng/mL 7-20 Oct 31, 2024 01:04 PM [facility] HGA1C BLOOD Specimen Type: BLOOD No comment entered. Ordering Provider: TRAV ARAMBULA Report Released Date/Time: Nov 07, 2023 01:47 PM Reporting Lab: [place] [facility] [address] [place] [address] Performing Lab: [place] [facility] [address] [place] [address] HGA1C 6.0 4.0-6.0 Oct 31, 2024 01:04 PM [facility] CHOLESTEROL PANEL (PB) PLASMA Specimen Type: P LASMA No comment entered. Ordering Provider: TRAV ARAMBULA Report Released Date/Time: Nov 07, 2023 01:47 PM Reporting Lab: [place] [facility] [address] [place] [address] Performing Lab: [place] [facility] [address] [place] [id number] CHOLESTEROL 155 mg/dL 0-200 TRIGLYCERIDE 141 mg/dL 0-150 CALCULATED LDL 71.8 mg/dL HDL(New) 55.0 mg/dL H >40 HDL % OF TOTAL CHOLESTEROL (PB) 35.5 >25 Oct 31, 2024 01:04 PM [facility] URINE ALBUMIN PROFILE-ih (PB) URINE Specimen Type: URINE No comment entered. Ordering Provider: TRAV ARAMBULA Report Released Date/Time: Nov 07, 2023 01:47 PM Reporting Lab: [place] [facility] [address] [place] [id number] Performing Lab: [place] [facility] [address] [place] [id number] URINE ALBUMIN (PB-STL) 32.61 mg/L uACR (PB-MA) 19.65 mg/g 0-30 CREATININE URINE/OTHERS 165.99 mg/dL Oct 31, 2024 01:04 PM [facility] VITAMIN D, 25-HYDROXY SERUM Specimen Type: SE RUM No comment entered. Ordering Provider: TRAV ARAMBULA Report Released Date/Time: Nov 07, 2023 01:47 PM Reporting Lab: [place] [facility] [address] [place] [address] Performing Lab: [place] [facility] [address] [place] [id number] VITAMIN D, 25-HYDROXY 54.2 ng/mL 30-96 Oct 31, 2024 01:04 PM [facility] TSH (MA-PB) SERUM Specimen Typ e: SERUM No comment entered. Ordering Provider: TRAV ARAMBULA Report Released Date/Time: Nov 07, 2023 01:47 PM Reporting Lab: [place] [facility] [address] [place] [address] Performing Lab: [place] [facility] [address] [place] [address] TSH 2.311 u[IU]/mL 0.47-5 Vital Signs: All taken on the encounter date This section contains inpatient and outpatient Vital Signs collected on the date of the Encounter. Date/Time Temperature Pulse Blood Pressure Respiratory Rate SP02 Pain Height Weight Body Mass Index Source Nov 14, 2024 09:29 AM 97.5 F 73 /min 115/75 mm[Hg] 18 /min 92 % 0 173.0 lb 28 [facility] Social History: Smoking Status (Most current) and Tobacco Use (All prior to encounter date) This section includes the most current, and the historical, smoking and tobacco- related health factors from the [place] facility where the Encounter took place. Current Smoking Status This section includes the most current smoking, or tobacco-related health factor, from the DC facility where the Encounter took place. Date/Time Current Smoking Status Comment Facil ity Nov 14, 2024 09:00 AM VA-TOBACCO NEVER USED OTHER TYPE [facility] Tobacco Use History This section includes a history of the smoking, or tobacco-related health factors, that were collected on or before the date of the Encounter. The data comes from the DC facility where the Encounter took place. Date/Time Smoking Status/Tobacco Use Comment F acility Nov 14, 2024 09:00 AM VA-TOBACCO NEVER USED OTHER TYPE [facility] Nov 07, 2023 12:30 PM VA-TOBACCO NEVER USED [facility] Nov 03, 2022 11:00 AM VA-TOBACCO NEVER USED [facility] Encounter Notes: All associated encounter notes This section contains the clinical notes associated to the Encounter. Date/Time Encounter Note(s) Provider Source Nov 14, 2024 09:53 AM PRIMARY CARE PROGR ESS NOTE: LOCAL TITLE: PRIMARY CARE CLINIC PROGRESS NOTE PB STANDARD TITLE: PRIMARY CARE PROGRESS NOTE DATE OF NOTE: NOV 14, 2024@09:53 ENTRY DATE: NOV 14, 2024@09:53:42 AUTHOR: TRAV ARAMBULA EXP COSIGNER: URGENCY: STATUS: COMPLETED Provider Assessment Date & Time:Oct@09:53 Chief Complaint: Annual exam review labs patient is here with his Subjective: Patient had a saddle embolus. Is on right but rocks a BM. Sees cardiology Dr. Alston. Is on a statin and clopidogrel as well. Has a follow-up with cardiology Dr. Alston next month. Doing well from that standpoint states that he is still fatigued and has some generalized weakness Also she gets a yearly check for his AAA Had an ultrasound done recently. REVIEW OF SYSTEMS: HEENT: Hearing loss RESPIRATORY: No shortness of breath, cough or sputum. CARDIOVASCULAR: No chest pain or palpitation., Blood pressure is normal GI: No abdominal pain, nausea, vomiting or bowel changes. MUSCULOSKELETAL: No muscle aches or pains., Other:Generalized weakness SKIN: No new rashes, no unhealing lesions, no moles. : No urinary symptoms. PSYCH: Denies being depressed or anxious. Objective: Vital Signs: 97.5 F [36.4 C] (11/14/2024 09:29) 73 (11/14/2024 09:29) 18 (11/14/2024 09:29) 115/75 (11/14/2024 09:29) 0 (11/14/2024 09:29) 66 in [167.6 cm] (10/31/2024 13:56) 173.0 lb [78.47 kg] (11/14/2024 09:29) HEENT: Oral mucosa is moist, Normocephalic/atraumatic, Pupils equal, round, reactive to light , Sclera clear, Vision unchanged, Hard of hearing, Thyromegaly negative, No jugular venous distention, Oropharynx normal NECK: Supple, Thyroid, normal sized, Lymphadenopathy not present CARDIAC: RRR RESPIRATORY: Clear breath sounds, Unlabored respirations GI: WNL, BOWEL SOUNDS NORMAL MUSCULOSKELETAL: WeaknessUses a cane for ambulation, generalized weakness EXTREMITITES: edema, cyanosisNone noted SKIN: Warm, Dry NEUROLOGICAL: The is alert and oriented times: x3 1+ = Diminished but present DEEP TENDON REFLEXES (DTR'S) GAIT & STANCE: normalWeak, Pt has weak gait w/stooped posture or , uses support of furniture with featherweight , walking aid for A/P: ASSESSMENT and PLAN 2) Depressive disorder ([facility] [id number]) - Depression, unspecifieddenies depression no suicidal ideation or plans. 3) Vascular dementia without behavioral disturbance 4) Essential hypertensionstable 7) Obstructive Sleep Apnea of Adult -nature and educated that needs to use CPAP equipment in order to get good rest. 8) Benign Prostatic Hypertrophy with Outflow Obstruction -denies any UTI symptomsalso sees local clinic for non-VA PCP. 12) Essential Tremor 13) Abnormal Gaitleft-sided neglect from stroke 14) Hx gastric ulcer with hemorrhage -resolved 16) Hx fall -no injury, uses cane/ walking stick -generalized weakness recommended physical therapy to do it in the clinic and not at home since that will be better for the patient also the patient and are interested in aqua therapy since patient used to be an avid swimmer in the past. 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 Alston cardiology had a thrombectomy currently on blood thinner. Has follow-up with cardiology next month. I educated patient that she did not have an ultrasound abdominal aorta, but had an ultrasound of his lower extremities of the veins that Dr. Alston cardiology ordered for him, also patient had the same day an ultrasound of his heart. -Follow-up with me every October for annual exam and annual labs -Follow-up with me as needed Health Maintenance: Order annual labs today. Discussed preventative health to include diet and exercise including immunizations. Stable. Discussed medications with patient; med rec completed. Continue current regimen as prescribed by PCP and specialists. RTC as needed if developing any new or worsening symptoms. Please notify PACT with medication changes or for orders coordination as needed if seen by a specialist in the future. Discussed with patient that in the event of community imaging / testing being ordered in the future, once the imaging / testing has been completed, please notify PACT of completion at outside facility if not called with results within 1 week by a VA PACT member; this is due to intermittent lapses in notification of imaging completion within CPRS. All questions answered; agrees to plan of care. Follow up as listed above, annually, and as needed. Keep all appointments. Medications Reconciled /es/ TRAV ARAMBULA MD Signed: 11/14/2024 10:07 TRAV ARAMBULA [facility] Nov 14, 2024 09:07 AM PRIMARY CARE NINI MYERS NOTE: LOCAL TITLE: PRIMARY CARE NURSING PROGRESS NOTE (TEXT) NURSING P STANDARD TITLE: PRIMARY CARE NURSING NOTE DATE OF NOTE: NOV 14, 2024@09:07 ENTRY DATE: NOV 14, 2024@09:07:04 AUTHOR: DENG BALDERAS COSIGNER: URGENCY: STATUS: COMPLETED Established Patient ELIZABETH,SAGE DONOVAN IS A 89 YEAR OLD MALE BEING SEEN IN CLINIC NOV 14, 2024. REASON FOR VISIT: Yearly visit. Are you receiving care any where other than the [facility]? Yes, List: Dr. Hiram Varghese [facility] HEALTH AND SURGICAL HISTORY: Does patient report using home oxygen? CURRENT ACTIVE MEDICATIONS FOR REVIEW: If the list for review does not include a component, then it was not applicable to this patient. Allergies/ADRs (Tool #5) FACILITY ALLERGY/ADR -------- No Remote Allergy/ADR Data available for this patient [facility] LISINOPRIL Med. Reconciliation (Tool #1) INCLUDED IN THIS LIST: Alphabetical list of active outpatient prescriptions dispensed from this DC (local) and dispensed from another DC or [facility] facility (remote) as well as inpatient orders (local pending and active), local clinic medications, locally documented non-VA medications, and local prescriptions that have or been discontinued in the past 90 days. Non-VA Meds Last Documented On: Nov 07, 2023 NOTE The display of VA prescriptions dispensed from another DC or [facility] facility (remote) is limited to active outpatient prescription entries matched to National Drug File at the originating site and may not include some items such as investigational drugs, compounds, etc. NOT INCLUDED IN THIS LIST: Medications self-entered by the patient into personal health records (i.e. [employer]) are NOT included in this list. Non-VA medications documented outside this DC, remote inpatient orders (regardless of status) and remote clinic medications are NOT included in this list. The patient and provider must always discuss medications the patient is taking, regardless of where the medication was dispensed or obtained. OUTPT AMLODIPINE BESYLATE 10MG TAB (Status = ) TAKE ONE TABLET BY MOUTH ONCE A DAY FOR HIGH BLOOD PRESSURE Rx# [id number] Last Released: 11/08/23 Qty/Days Supply: Rx Expiration Date: 11/07/24 Refills Remainin Indication: FOR HIGH BLOOD PRESSURE Non-VA ASCORBIC ACID 500MG TAB TAKE ONE TABLET BY MOUTH ONCE A DAY Indication: FOR VITAMIN C SUPPLEMENTATION Non-VA CALCIUM/MAGNESIUM TAB,EC TAKE BY MOUTH ONCE A DAY Non-VA CYANOCOBALAMIN 500MCG TAB TAKE ONE TABLET BY MOUTH ONCE A DAY VA RX: Patient wants to buy from Non-VA pharmacy Indication: FOR VITAMIN B12 SUPPLEMENTATION OUTPT DOCUSATE NA 50MG/SENNOSIDES 8.6MG TAB (Status = Active) TAKE 1 TABLET BY MOUTH TWICE DAILY NEEDED FOR SOFTENING STOOL HOLD FOR LOOSE STOOL/DIARRHEA. Rx# [id number] Last Released: 05/04/24 Qty/Days Supply: Rx Expiration Date: 05/04/25 Refills Remainin Indication: FOR SOFTENING STOOL Non-VA FERROUS SULFATE 325MG TAB TAKE ONE TABLET BY MOUTH ONCE A DAY Indication: UNKNOWN Non-VA FISH OIL 1000MG (500MG DHA/EPA) CAP TAKE 1 CAPSULE BY MOUTH TWICE A DAY 3,6,9 Indication: FOR HIGH TRIGLYCERIDES Non-VA FLUOXETINE HCL 20MG CAP TAKE 1 CAPSULE BY MOUTH EVERY MORNING VA RX: Medication prescribed by Non-VA provider Indication: FOR DEPRESSION Non-VA GINKGO BILOBA CAP/TAB TAKE ONE TABLET BY MOUTH ONCE A DAY Patient wants to buy from Non-VA pharmacy Indication: UNKNOWN OUTPT LOSARTAN 100MG TAB (Status = ) TAKE ONE TABLET BY MOUTH ONCE A DAY FOR HIGH BLOOD PRESSURE Rx# [id number] Last Released: 11/08/23 Qty/Days Supply: Rx Expiration Date: 11/07/24 Refills Remainin Indication: FOR HIGH BLOOD PRESSURE Non-VA MILK THISTLE CAP/TAB TAKE 1 CAP/TAB BY MOUTH ONCE A DAY Patient wants to buy from Non-VA pharmacy also takes ashwaganda Indication: UNKNOWN Non-VA MULTIVITAMIN CAP/TAB TAKE BY MOUTH ONCE A DAY ASHWAGNDA AND NOT MULTI OUTPT NUTRITION SUPL ENSURE PLUS/LÁZARO LIQUID (Status = ) TAKE 1 CANFUL BY MOUTH ONCE A DAY FOR NUTRITION SUPPLEMENTATION Rx# [id number] Last Released: 09/20/24 Qty/Days Supply: Rx Expiration Date: 11/02/24 Refills Remainin Indication: FOR NUTRITION SUPPLEMENTATION OUTPT POLYETHYLENE GLYCOL 3350 ORAL PWDR (Status = Active) MIX AND DRINK 1 CAPFUL BY MOUTH ONCE A DAY FOR CONSTIPATION (MEASURE WITH CAP AND MIX IN 8 OZ OF WATER) Rx# [id number] Last Released: 05/10/24 Qty/Days Supply: 0/ Rx Expiration Date: 05/04/25 Refills Remainin Indication: FOR CONSTIPATION OUTPT RIVAROXABAN 20MG TAB (Status = Discontinued) TAKE ONE TABLET BY MOUTH EVERY EVENING WITH MEAL(S) BEGIN IN 22 DAYS, AFTER TAKING 15 MG TWICE DAILY FOR 21 DAYS. Rx# [id number] Last Released: 07/22/24 Qty/Days Supply: Rx Expiration Date: 10/14/24 Refills Remainin OUTPT RIVAROXABAN 20MG TAB (Status = Active) TAKE ONE TABLET BY MOUTH EVERY EVENING WITH MEAL(S) BEGIN IN 22 DAYS, AFTER TAKING 15 MG TWICE DAILY FOR 21 DAYS. Rx# [id number] Last Released: 11/04/24 Qty/Days Supply: Rx Expiration Date: 11/02/25 Refills Remainin Non-VA SAW PALMETTO CAP/TAB TAKE 1 CAP/TAB BY MOUTH ONCE A DAY Patient wants to buy from Non-VA pharmacy Indication: UNKNOWN Non-VA TRIPLE MUSHROOM CAP/TAB TAKE BY MOUTH ONCE A DAY Non-VA VITAMIN A 16295 UNT CAP TAKE 1 CAPSULE BY MOUTH ONCE A DAY VA RX: Patient wants to buy from Non-VA pharmacy Indication: FOR VITAMIN A SUPPLEMENTATION Non-VA VITAMIN E 180MG (400UNIT) CAP TAKE 2 CAPSULES BY MOUTH ONCE A DAY Indication: FOR VITAMIN SUPPLEMENTATION Non-VA ZINC 50MG (FROM SULFATE) CAP TAKE 1 CAPSULE BY MOUTH SUPPLIES PHARMACY TERMS AND POSSIBLE PATIENT ACTIONS INPT = DC inpatient order IV = DC intravenous medication OUTPT = DC outpatient prescription PHARMACY POSSIBLE PATIENT TERMS EXPLANATION ACTIONS -------- --- ACTIVE A prescription that can be If you have refills, filled at the local DC pharmacy. you may request a refill of this prescription from your DC pharmacy. CLINIC A medication you received during If you have questions a visit to a DC clinic or about this medication emergency department. contact your DC healthcare team. DISCONTINUED A prescription your provider has Contact your DC stopped. It is no longer healthcare team if you available to be sent to you or need more of this picked up at the DC pharmacy medication. window. A prescription which is too old Contact your DC to fill. This does not refer to healthcare team if you the expiration date of the need more of this medication in the container. medication. NON-VA A medication that came from If this medication someplace other than a VA information is pharmacy. This may be a incorrect or out of prescription from either the VA date, please tell your or non VA providers that was VA healthcare team. filled outside the VA. Or, it may be an vnga-tkn-tayvuba (OTC), herbal, dietary supplements or sample medication. ON HOLD An active prescription that will Contact your VA not be filled until pharmacy pharmacy when you need resolves the issue. more of this medication. PARKED An active prescription that will Contact your VA not be filled until the patient pharmacy when you need requests it. this medication. PENDING This prescription order has been If you have been sent to the pharmacy for review instructed to start and is not ready yet. this medication now, contact your VA pharmacy. SUSPENDED An active prescription that is Contact your DC not scheduled to be filled yet. pharmacy if you need You should receive it before this medication now. you run out. ======== Medication list reviewed with Patient Patient/Caregiver reports taking medications as ordered. IS PATIENT TAKING ANY OVER THE COUNTER MEDICATIONS, SUCH VITAMINS OR HERBAL SUPPLEMENTS, INCLUDING ANY MEDICATIONS PRESCRIBED BY ANOTHER PHYSICIAN? No Does patient have any new allergies to report since last visit? NO VITALS: TEMPERATURE: 97.8 F [36.6 C] (11/07/2023 13:12) BP: 115/74 (11/07/2023 13:12) RESP: 18 (11/07/2023 13:12) PULSE: 80 (11/07/2023 13:12) HT: 66 in [167.6 cm] (10/31/2024 13:56) WT: 171.2 lb [77.66 kg] (10/31/2024 13:56) BMI: 27.7 PAIN ASSESSMENT: (Most Recent Pain Score in Vitals Package: 7 (11/07/2023 13:12) ) The patient indicated that they and their close contacts have not traveled outside of the [place] in the past 21 days. The patient reports the following symptoms: No symptoms present The patient is not immunocompromised. The patient does not report having a history of Multi Drug Resistant Organism (MDRO) within the last five years. The patient does not report having been exposed to measles, chickenpox, or zoster in last 30 days. Patient reports no pain at this visit. Pain Score = 0. STRESS: Thank you for your service. Now let us serve you. At the [facility], we strive to provide you with exceptional health care that improves your health and well-being. Are you feeling sad, empty, or depressed? No Do you need to talk about things in your life that worry you or cause you stress? No Do you need to talk about personal problems, family problems, alcohol use, drug use, or mental or emotional illness? No SUICIDE SCREENING: The patient was asked, Over the past two weeks, how often have you been bothered by thoughts that you would be better off or of hurting yourself in some way? Not At All SPIRITUAL ASSESSMENT: Are there jainism practices or spiritual concerns you want the medical dir, your physician, and other health care team members to immediately know about? No Patient advised to call the clinic for any concerns, questions, or symptoms. Patient and/or caregiver verbalized understanding of plan of care. Per [facility] Directive 1605.06, wristband documentation: Patient wristband was removed and destroyed by (staff name) Deng Balderas and placed in the designated [address] Hubed-It bin. Frail/Elderly Screen: ADL Screen - H[place]t Index of [place] in Activities of Daily Living Bathing: (2 Points) Receives assistance in bathing only one part of the body (such as back or leg) Dressing: (2 Points) Gets clothes and gets dressed without assistance, except for assistance with tying shoes. Toileting: (2 Points) Receives assistance in going to toilet room or in cleansing self or in arranging clothes after elimination or in use of night bedpan or commode. Transferring: (2 Points) Moves in and out of bed with assistance. Continence: (2 Points) Has occasional accidents or urination or bowels Feeding: (2 Points) Feeds self except for getting assistance in cutting meat or buttering bread Total Score: 12 Points 18 = High (patient independent) 6 = Low (patient very dependent) IADL Screen - [facility] Instrumental Activities of Daily Living Scale Ability to use telephone: (1 point) Answers telephone, but does not dial. Shopping: (0 points) Needs to be accompanied on any shopping trip. Food preparation: (0 points) Needs to have meals prepared and served. Housekeeping: (0 points) Does not participate in any housekeeping tasks. Laundry: (0 points) All laundry must be done by others. Mode of transportation: (0 points) Travel limited to taxi or automobile with assistance of another. Responsibility for own medications: (0 points) Is not capable of dispensing own medication. Ability to handle finances: (0 points) Incapable of handling money. Total score: 1 point 8 = High function, independent 0 = Low function, dependent Falls Screen: No falls within the past 12 months. Incontinence Screen: YES - Incontinence is a problem for this patient. Is urinary incontinence NEW for this patient? NO - Incontinence is NOT a new problem. What is the current treatment? . Suicide Screen - V: C-SSRS Screening [place] Suicide Severity Rating Scale (C-SSRS) screener 1. Over the past month, have you wished you were or wished you could go to sleep and not wake up? No 2. Over the past month, have you had any actual thoughts of killing yourself? No 3. Over the past month, have you been thinking about how you might do this? Response not required due to responses to other questions. 4. Over the past month, have you had these thoughts and had some intention of acting on them? Response not required due to responses to other questions. 5. Over the past month, have you started to work out or worked out the details of how to kill yourself? Response not required due to responses to other questions. 6. If yes, at any time in the past month did you intend to carry out this plan? Response not required due to responses to other questions. 7. In your lifetime, have you ever done anything, started to do anything, or prepared to do anything to end your life (for example, collected pills, obtained a gun, gave away valuables, went to the roof but didn't jump)? No 8. If YES, was this within the past 3 months? Response not required due to responses to other questions. Sexual Orientation - CP,L,N,P,PH,PS,S,U: The patient thinks of their sexual orientation as: Straight or Heterosexual RHS Screen - VS: RHS Screen Session Format: Face to Face Environmental Check Upon inquiry, the individual reports that the environment is safe to proceed. Informed Consent to Screen and Document The individual consents to proceed with screening. The individual consents to documentation of responses. PRIMARY SCREEN: In the past 12 months, how often did a current or former intimate partner (e.g., boyfriend, girlfriend, , , sexual partner): 1. Scream or curse at you Never 2. Insult or talk down to you Never 3. Threaten you with harm Never 4. Physically hurt you Never 5. Force or pressure you to have sexual contact against your will, or when you were unable to say no Never The HITS tool (items 1-4 above) is US copyright protected by Evgeny Ritchie MD, and the user has full rights to use it throughout the [place] system. PRIMARY SCREEN RESULT: The Primary Screen is NEGATIVE. The individual answered never to all forms of IPV above (i.e., answered never to all 5 items) The individual accepts education and/or resources: No EDUCATION: The individual indicated readiness to learn. Education offered during this session as noted above. The individual indicated understanding by asking relevant questions and making appropriate comments. No barriers to learning were observed or identified. Alcohol Use Screen (AUDIT-C) - V: Alcohol Screen: SCREEN FOR ALCOHOL (AUDIT-C) An alcohol screening test (AUDIT-C) was negative (score=0). 1. How often did you have a drink containing alcohol in the past year? Consider a drink to be a 12 ounce can or bottle of regular beer, 8 ounces of malt liquor, a 5 ounce glass of table wine, or a 1.5 ounce shot of liquor (like scotch, gin, or vodka). Never 2. How many drinks containing alcohol did you have on a typical day when you were drinking in the past year? Response not required due to responses to other questions. 3. How often did you have six or more drinks on one occasion in the past year? Response not required due to responses to other questions. Tobacco Use Screening - AT,DE,L,M,N,P,PH,PS,RT,S,U: The patient has never smoked cigarettes. The patient has never used other types of tobacco. Depression Screening - V: Perform PHQ-2 A PHQ-2 screen was performed. The score was 0 which is a negative screen for depression. Over the past two weeks, how often have you been bothered by the following problems? 1. Little interest or pleasure in doing things Not at all 2. Feeling down, depressed, or hopeless Not at all Homelessness/Food Insecurity Screen - DI,L,N,P,PH,PS,S,U: In the past 2 months, have you been living in stable housing that you own, rent, or stay in as part of a household? Yes - Living in stable housing. Are you worried or concerned that in the next 2 months you may NOT have stable housing that you own, rent, or stay in as part of a household? No - Not worried about housing near future The Joes reports the following: Within the past 12 months, you worried whether your food would run out before you got money to buy more. Never true Within the past 12 months, the food you bought just didn't last and you didn't have money to get more. Never true COVID-19 Immunization: Refused Moderna Monovalent COVID-19 vaccine Immunization: COVID-19 (MODERNA), MRNA, LNP-S, PF, 50 MCG/0.5 ML (AGES 12+ YEARS) Refusal Reason: PATIENT DECISION Patient refuses all immunization(s) in the COVID-19 group Date Documented: 11/14/24 09:25 Tdap Immunization - L,N,P,PH,U: The patient declines to receive the recommended dose of Tdap vaccine. Immunization: TDAP Refusal Reason: PATIENT DECISION Patient refuses all immunization(s) in the TDAP group Date Documented: 11/14/24 09:25 Pneumococcal Conjugate Vaccine (PCV15/PCV20/PCV21) - L,N,P,PH,U: Refuses PCV vaccine Immunization: PNEUMOCOCCAL CONJUGATE, UNSPECIFIED FORMULATION Refusal Reason: PATIENT DECISION Patient refuses all immunization(s) in the PneumoPCV group Date Documented: 11/14/24 09:25 Advanced Directive Screen/Stone Unloader: ADVANCE DIRECTIVE SCREENING: I asked if the patient has an advance directive, and determined that: Patient has an Advance Directive. Patient does not wish to make any changes to the Advance Directive at this time. ADVANCE DIRECTIVE NOTIFICATION I did not provide the patient with written notification about advance directives because . Level of understanding: Good Pain Assessment: - PAIN ASSESSMENT: .. Patient reports no pain at this visit. Pain Score = 0. Patient's self identified pain goal: 0 Dementia Safety Assessment: Is there a gun in your home (place where you live)? NO Patient Education Dialog: What was taught: [place] 'Firearms and Dementia' pamphlet Weight Control/Nutrition Counseling: * The patient received the following counseling at this encounter: Patient was encouraged to restrict fat, especially saturated fats, in a normal diet. Benefit of a diet high in fiber was discussed. Patient was advised to include 5 or more servings of fruit and vegetables and six or more servings of grains as a well balanced diet. HIV Screening-Routine: Patient has been offered HIV testing and has declined. I have explained that HIV testing is recommended for all adults, even if all risk factors are absent. VVC DIGITAL DIVIDE CAPABILITY REMINDER: Patient is not interested in VVC at this time. 'S RIGHT TO DECLINE STATEMENT Joes understands they have the right to decline the use of Telehealth Technology at any time without adverse affects on their continued access to healthcare. Patient/Nurse Interview: * * Patient stated that adequate information was received regarding the condition and/or treatment. /viktoriya/ DENG BALDERAS LPN [facility] Signed: 11/14/2024 09:28 DENG BALDERAS [facility]
--- OUTSIDE RECORDS SUMMARY | 2024-11-28 10:48 | XMS_ITS ---
Author Name [facility] Address [address] [place] [address] Care Team Providers Care Route Delivery Manager Name Role Phone TRAV ARAMBULA Primary Care [...] Name Patient's Relationship to Policy Everett DEYANIRA BECKI CHAVEZ [facility] (WNR) MEDICARE [place]ANTAGE [place] MEDIC ARE Apr 24, 2021 [id number] [phone] KEYANNA ELIZABETH PATIENT Selected Encounter This section includes the information on record at [place] for the Encounter. Date/Time Encounter Type Encounter Description Reason Pro vider Source Nov 28, 2024 03:48 PM Outpatient Encounter TELEPHONE TRIAGE IHE Encounter Template Text not used by [place] Plan of Treatment: Future Appointments (+ 6 months) and Future Tests (+/- 45 days) The Plan of Treatment section includes future care activities for the patient from all [facility] treatment[facility]ilities. This section includes future appointments and future orders which are active, pending or scheduled. Future Appointments This section includes appointments that were scheduled to occur 6 months from the date of the Encounter, up to a maximum of 20 appointments. The data comes from all [place] treatment facilities. Appointment Date/Time Appointment Type Appointme nt Facility Name Dec 05, 2024 09:30 AM AMBULATORY - MEDICINE [place] [facility] Dec 09, 2024 08:00 AM AMBULATORY - NONE [place] [facility] Active, Pending, and Scheduled Orders This section includes a listing of several types of active, pending, and scheduled orders, including clinic medications orders, diagnostic test orders, procedure orders and consult orders; where the start date of the order is 45 days before the date of the Encounter or 45 days after the date of theEncounter. The data comes from all [place] treatment [facility]. Test Date/Time Test Type Test Details Facility Name Nov 14, 2024 10:02 AM Consult Order [facility] [id number] Cons Signals Intelligence Analysis Manager's [facility] CB Dec 04, 2024 08:28 AM Consult Order [facility] [id number] Cons Signals [facility] Lab Results: +/- 30 days of the encounter This section includes the Chemistry and Hematology Lab Results on record with [place] for the patient. Radiology Reports and Pathology Reports are provided separately, in subsequent sections. Lab Results This section contains the Chemistry/Hematology Results that were resulted 30 days before or 30 daysafter the date of the Encounter. Date/Time Source Result Type Result - Unit Interpretation Reference Range Specimen Type Comment Oct 31, 2024 01:04 PM [facility] COMPREHENSIVE METABOLIC PANEL PLASMA Specimen Type: PLASMA No comment entered. Ordering Provider: TRAV ARAMBULA Report Released Date/Time: Nov 07, 2023 01:47 PM Reporting Lab: [place] [facility] [address] [place] [address] Performing Lab: [place] [facility] [address] [facility] [place] [place] [address] CREATININE 0.84 mg/dL 0.7-1.3 UREA NITROGEN 16 [...] 2020) 83 Oct 31, 2024 01:04 PM [facility] CBC BLOOD Specimen Type: BLOOD No comment entered. Ordering Provider: TRAV ARAMBULA Report Released Date/Time: Nov 07, 2023 01:47 PM Reporting Lab: [place] [facility] [address] [place] [facility] [address] Performing Lab: [place] [facility] [address] [place] [facility] [address] WBC 6.3 10*3/uL 3.6-11.2 RBC 4.92 10*6/uL [...] 0. 00-0.05 Oct 31, 2024 01:04 PM [facility] B12 SERUM Specimen Type: SERUM No comment entered. Ordering Provider: TRAV ARAMBULA Report Released Date/Time: Nov 07, 2023 01:47 PM Reporting Lab: [place] [facility] [address] [place] [address] Performing Lab: [place] [facility] [address] [place] [address] B12 735 pg/mL 213-816 Oct 31, 2024 01:04 PM [facility] FOLATE (PB) SERUM Specimen Typ e: SERUM No comment entered. Ordering Provider: TRAV ARAMBULA Report Released Date/Time: Nov 07, 2023 01:47 PM Reporting Lab: [place] [facility] [address] [place] [address] Performing Lab: [place] [facility] [address] [place] [address] FOLATE (PB) 19.9 ng/mL 7-20 Oct 31, 2024 01:04 PM [facility] HGA1C BLOOD Specimen Type: BLOOD No comment entered. Ordering Provider: TRAV ARAMBULA Report Released Date/Time: Nov 07, 2023 01:47 PM Reporting Lab: [place] [facility] [address] [place] [address] Performing Lab: [place] [facility] [address] [place] [address] HGA1C 6.0 4.0-6.0 Oct 31, 2024 01:04 PM [facility] CHOLESTEROL PANEL (PB) PLASMA Specimen Type: P LASMA No comment entered. Ordering Provider: TRAV ARAMBULA Report Released Date/Time: Nov 07, 2023 01:47 PM Reporting Lab: [place] [facility] [address] [place] [address] Performing Lab: [place] [facility] [address] [place] [address] CHOLESTEROL 155 mg/dL 0-200 TRIGLYCERIDE 141 mg/dL 0-150 CALCULATED LDL 71.8 mg/dL HDL(New) 55.0 mg/dL H >40 HDL % OF TOTAL CHOLESTEROL (PB) 35.5 >25 Oct 31, 2024 01:04 PM [facility] URINE ALBUMIN PROFILE-ih (PB) URINE Specimen Type: URINE No comment entered. Ordering Provider: TRAV ARAMBULA Report Released Date/Time: Nov 07, 2023 01:47 PM Reporting Lab: [place] [facility] [address] [place] [address] Performing Lab: [place] [facility] [address] [place] [address] URINE ALBUMIN (PB-STL) 32.61 mg/L uACR (PB-MA) 19.65 mg/g 0-30 CREATININE URINE/OTHERS 165.99 mg/dL Oct 31, 2024 01:04 PM [place] [facility] VITAMIN D, 25-HYDROXY SERUM Specimen Type: SE RUM No comment entered. Ordering Provider: TRAV ARAMBULA Report Released Date/Time: Nov 07, 2023 01:47 PM Reporting Lab: [place] [facility] [address] [place] [address] Performing Lab: [place] [facility] [address] [place] [address] VITAMIN D, 25-HYDROXY 54.2 ng/mL 30-96 Oct 31, 2024 01:04 PM [place] [facility] TSH (MA-PB) SERUM Specimen Typ e: SERUM No comment entered. Ordering Provider: TRAV ARAMBULA Report Released Date/Time: Nov 07, 2023 01:47 PM Reporting Lab: [place] [facility] [address] [place] [address] Performing Lab: [place] [facility] [address] [place] [address] TSH 2.311 u[IU]/mL 0.47-5 Encounter Notes: All associated encounter notes This section contains the clinical notes associated to the Encounter. Date/Time Encounter Note(s) Provider Source Nov 29, 2024 07:26 AM ADDENDUM: LOCAL TITLE: Addendum STANDARD TITLE: ADDENDUM DATE OF NOTE: NOV 29, 2024@07:26:56 ENTRY DATE: NOV 29, 2024@07:26:57 AUTHOR: DEVORAH GARCÍA COSIGNER: URGENCY: STATUS: COMPLETED Please reschedule patients visit that was previously cancelled by patient. /viktoriya/ DEVORAH GARCÍA Registered Dietitian Signed: 11/29/2024 07:27 Receipt Acknowledged By: 11/29/2024 10:03 /es/ YVES CAMEJO [facility] --- Original Document --- 11/28/24 PHARMACY CONTACT CENTER NOTE: MEDICATION RENEW [id number] SUBSTANCE: Who is contacting the ME? Soledad/Patient Requesting renewal of medication: NUTRITION SUPL ENSURE PLUS/LÁZARO LIQUID [id number] 24 11/02/2024 11/02/2023 09/19/2024 7 DEVORAH GARCÍA 10.08 TAKE 1 CANFUL BY MOUTH ONCE A DAY FOR NUTRITION SUPPLEMENTATION Contact via: Phone Please send medication: Mail Disposition: Notification forwarded to provider for review of renewal request. /viktoriya/ SHAILESH BILLINGS V15 [facility] HAND BUFFER Signed: 11/28/2024 15:49 Receipt Acknowledged By: 11/29/2024 07:26 /viktoriya/ DEVORAH GARCÍA Registered Dietitian DEVORAH GARCÍA [facility] Nov 28, 2024 03:48 PM PHARMACY NOTE: LOCAL TITLE: PHARMACY CONTACT CENTER NOTE STANDARD TITLE: PHARMACY NOTE DATE OF NOTE: NOV 28, 2024@15:48 ENTRY DATE: NOV 28, 2024@15:48:45 AUTHOR: SHAILESH BILLINGS EXP COSIGNER: URGENCY: STATUS: COMPLETED PHARMACY CONTACT CENTER NOTE Has ADDENDA MEDICATION RENEW [id number] SUBSTANCE: Who is contacting the ME? /Patient Requesting renewal of medication: NUTRITION SUPL ENSURE PLUS/LÁZARO LIQUID [id number] 24 11/02/2024 11/02/2023 09/19/2024 7 DEVORAH GARCÍA 10.08 TAKE 1 CANFUL BY MOUTH ONCE A DAY FOR NUTRITION SUPPLEMENTATION Contact via: Phone Please send medication: Mail Disposition: Notification forwarded to provider for review of renewal request. /viktoriya/ SHAILESH BILLINGS V15 [facility] Signed: 11/28/2024 15:49 Receipt Acknowledged By: 11/29/2024 07:26 /viktoriya/ DEVORAH GARCÍA Registered Dietitian 11/29/2024 ADDENDUM STATUS: COMPLETED Please reschedule patients visit that was previously cancelled by patient. /viktoriya/ DEVORAH GARCÍA Registered Dietitian Signed: 11/29/2024 07:27 Receipt Acknowledged By: * AWAITING SIGNATURE * WILNER REGAN DANIEL P [place] [facility]
--- OUTSIDE RECORDS SUMMARY | 2024-11-29 05:04 | XMS_ITS | Encounter Summary ---
Author Name [facility] [place] Organization [place] Address [address] [facility], [place] [address] Care Team Providers Care Junior Legal Secretary Name Role Phone TRAV ARAMBULA Primary Care [...] Everett's Name Patient's Relationship to Policy Everett [facility]AN [facility] (WNR) MEDICARE ADVANTAGE [place] MEDIC ARE Apr 24, 2021 MOMCRWP [id number] [phone] KEYANNA ELIZABETH PATIENT Selected Encounter This section includes the information on record at [place] for the Encounter. Date/Time Encounter Type Encounter Description Reason Pro vider Source Nov 29, 2024 10:04 AM Outpatient Encounter ADMIN PAT ACTIVTIES (MASNONCT) IHE Encounter Template Text not used by [place] Plan of Treatment: Future Appointments (+ 6 [...] 20 appointments. The data comes from all [place] treatment [facility]. Appointment Date/Time Appointment Type Appointme nt Facility Name Dec 05, 2024 09:30 AM AMBULATORY - MEDICINE [facility] [facility] Dec 09, 2024 08:00 AM AMBULATORY - NONE [place] [facility] Active, Pending, and Scheduled Orders This section includes a listing of several types of active, pending, and scheduled orders, including clinic medications orders, diagnostic test orders, procedure orders and consult orders; where the start date of the order is 45 days before the date of the Encounter or 45 days after the date of theEncounter. The data comes from all [place] treatment [facility]. Test Date/Time Test Type Test Details Facility Name Nov 14, 2024 10:02 AM Consult Order COMMUNITY CARE-PHYSICAL THERAPY 657A4 Cons [employer] Picture's [facility] Dec 04, 2024 08:28 AM Consult Order COMMUNITY CARE-[facility] 657A4 [facility] Lab Results: +/- 30 days of the encounter This section includes the Chemistry and Hematology Lab Results on record with [place] for the patient. Radiology Reports and Pathology Reports are provided separately, in subsequent sections. Lab Results This section contains the Chemistry/Hematology Results that were resulted 30 days before or 30 daysafter the date of the Encounter. Date/Time Source Result Type Result - Unit Interpretation Reference Range Specimen Type Comment Oct 31, 2024 01:04 PM [facility] COMPREHENSIVE METABOLIC PANEL PLASMA Specimen Type: PLASMA No comment entered. Ordering Provider: TRAV ARAMBULA Report Released Date/Time: Nov 07, 2023 01:47 PM Reporting Lab: [place] [facility] [facility] [address] [place] [address] Performing Lab: [place] [facility] [address] [facility] [address] CREATININE 0.84 mg/dL 0.7-1.3 UREA NITROGEN 16 [...] 2020) 83 Oct 31, 2024 01:04 PM [facility] CBC BLOOD Specimen Type: BLOOD No comment entered. Ordering Provider: TRAV ARAMBULA Report Released Date/Time: Nov 07, 2023 01:47 PM Reporting Lab: [place] [facility] [address] [place] [facility] [address] Performing Lab: [place] [facility] [address] [place] [facility] [address] WBC 6.3 10*3/uL 3.6-11.2 RBC 4.92 10*6/uL [...] 0. 00-0.05 Oct 31, 2024 01:04 PM [facility] B12 SERUM Specimen Type: SERUM No comment entered. Ordering Provider: TRAV ARAMBULA Report Released Date/Time: Nov 07, 2023 01:47 PM Reporting Lab: [place] [facility] [address] [place] [address] Performing Lab: [place] [facility] [address] [place] [address] B12 735 pg/mL 213-816 Oct 31, 2024 01:04 PM [facility] FOLATE (PB) SERUM Specimen Typ e: SERUM No comment entered. Ordering Provider: TRAV ARAMBULA Report Released Date/Time: Nov 07, 2023 01:47 PM Reporting Lab: [place] [facility] [address] [place] [address] Performing Lab: [place] [facility] [address] [place] [address] FOLATE (PB) 19.9 ng/mL 7-20 Oct 31, 2024 01:04 PM [facility] HGA1C BLOOD Specimen Type: BLOOD No comment entered. Ordering Provider: TRAV ARAMBULA Report Released Date/Time: Nov 07, 2023 01:47 PM Reporting Lab: [place] [facility] [address] [place] [address] Performing Lab: [place] [facility] [address] [place] [address] HGA1C 6.0 4.0-6.0 Oct 31, 2024 01:04 PM [facility] CHOLESTEROL PANEL (PB) PLASMA Specimen Type: P LASMA No comment entered. Ordering Provider: TRAV ARAMBULA Report Released Date/Time: Nov 07, 2023 01:47 PM Reporting Lab: [place] [facility] [address] [place] [address] Performing Lab: [place] [facility] [address] [place] [address] CHOLESTEROL 155 mg/dL 0-200 TRIGLYCERIDE 141 mg/dL 0-150 CALCULATED LDL 71.8 mg/dL HDL(New) 55.0 mg/dL H >40 HDL % OF TOTAL CHOLESTEROL (PB) 35.5 >25 Oct 31, 2024 01:04 PM [facility] URINE ALBUMIN PROFILE-ih (PB) URINE Specimen Type: URINE No comment entered. Ordering Provider: TRAV ARAMBULA Report Released Date/Time: Nov 07, 2023 01:47 PM Reporting Lab: [place] [facility] [address] [place] [address] Performing Lab: [place] [facility] [address] [place] [address] URINE ALBUMIN (PB-STL) 32.61 mg/L uACR (PB-MA) 19.65 mg/g 0-30 CREATININE URINE/OTHERS 165.99 mg/dL Oct 31, 2024 01:04 PM [place] [facility] VITAMIN D, 25-HYDROXY SERUM Specimen Type: SE RUM No comment entered. Ordering Provider: TRAV ARAMBULA Report Released Date/Time: Nov 07, 2023 01:47 PM Reporting Lab: [place] [facility] [address] [place] [address] Performing Lab: [place] [facility] [address] [place] [address] VITAMIN D, 25-HYDROXY 54.2 ng/mL 30-96 Oct 31, 2024 01:04 PM [facility] TSH (MA-PB) SERUM Specimen Typ e: SERUM No comment entered. Ordering Provider: TRAV ARAMBULA Report Released Date/Time: Nov 07, 2023 01:47 PM Reporting Lab: [place] [facility] [address] [place] [address] Performing Lab: [place] [facility] [address] [place] [address] TSH 2.311 u[IU]/mL 0.47-5 Encounter Notes: All associated encounter notes This section contains the clinical notes associated to the Encounter. Date/Time Encounter Note(s) Provider Source Nov 29, 2024 10:04 AM ADMINISTRATIVE NOT E: LOCAL TITLE: ADMINISTRATIVE NOTE PB STANDARD TITLE: ADMINISTRATIVE NOTE DATE OF NOTE: NOV 29, 2024@10:04 ENTRY DATE: NOV 29, 2024@10:04:26 AUTHOR: WILNER REGAN EXP COSIGNER: URGENCY: STATUS: COMPLETED RETURN TO CLINIC CLINIC:Pb-Nutr - CALL AND LEFT MESSAGE /es/ YVES CAMEJO [facility] Signed: 11/29/2024 10:04 [facility]
--- OUTSIDE RECORDS SUMMARY | 2024-12-02 05:03 | XMS_ITS | Encounter Summary ---
Author Name Department of Veter[place] Organization [place] Address [address] [place] [address] Care Team Providers Care Seed Technician Name Role Phone TRAV ARAMBULA Primary Care [...] Name Patient's Relationship to Policy Everett DEYANIRA [facility] (WNR) MEDICARE ADVANTAGE [place] MEDIC ARE Apr 24, 2021 MOMCRWP 0 [id number] [phone] KEYANNA ELIZABETH PATIENT Selected Encounter This section includes the information on record at [place] for the Encounter. Date/Time Encounter Type Encounter Description Reason Pro vider Source Dec 02, 2024 10:03 AM Outpatient Encounter COMMUNITY CARE CONSULT IHE Encounter Template Text not used by VA Plan of Treatment: Future Appointments (+ 6 [...] 20 appointments. The data comes from all [place] treatment facilities. Appointment Date/Time Appointment Type Appointme nt Facility Name Dec 05, 2024 09:30 AM AMBULATORY - MEDICINE [facility] Dec 09, 2024 08:00 AM AMBULATORY - NONE [place] [facility] Active, Pending, and Scheduled Orders This section includes a listing of several types of active, pending, and scheduled orders, including clinic medications orders, diagnostic test orders, procedure orders and consult orders; where the start date of the order is 45 days before the date of the Encounter or 45 days after the date of theEncounter. The data comes from all [place] treatment facilities. Test Date/Time Test Type Test Details Facility Name Nov 14, 2024 10:02 AM Consult Order COMMUNITY CARE-PHYSICAL THERAPY [id number] Cons [employer] Director's [facility] Dec 04, 2024 08:28 AM Consult Order COMMUNITY CARE-[facility] DIRECTED CARE [id number] Cons [facility] Encounter Notes: All associated encounter notes This section contains the clinical notes associated to the Encounter. Date/Time Encounter Note(s) Provider Source Dec 02, 2024 10:03 AM LETTERS: LOCAL TITLE: COMMUNITY CARE-REFERRAL PB (AUTO-PRINT) STANDARD TITLE: LETTERS DATE OF NOTE: DEC 02, 2024@10:03:47 ENTRY DATE: DEC 02, 2024@10:03:47 AUTHOR: KATHY VALENCIA COSIGNER: URGENCY: STATUS: COMPLETED [facility] [address], [place] [address] Dear SAGE ELIZABETH, Your VA provider has referred you to a provider within the community for care. Your medical care for physical therapy has been authorized with the Community Care Provider listed below. DO NOT REPORT TO THE [facility] Provider info: An appointment has been scheduled for you on: Dec 05, 2024 09:30 AM Office Name: [facility] Address: [address] [place] [address] Address: [place] [address] Auth #: [id number] Referral Issue Date: 11/25/2024 Expiration Date: 04/04/2025 If you are unable to keep this appointment or the appointment is no longer needed, please contact the community provider above for notification/rescheduling and then call the [facility] at [phone] Ext [phone]. If you need additional care/services not mentioned above, please contact your primary care provider for a new referral. Co-Payments: If you are required to pay a VA co-payment, you will be billed by the VA for each authorized visit that you attend. However, you are NOT REQUIRED to make co-payments to a Community Provider. Prescriptions: Your community provider may write a prescription related to the authorized care. If there is an immediate need for your prescriptions from your community care visit, you may be able to get up to a 14-day fill of your prescription at your own expense for the cost of the medication, and may seek reimbursement from the VA. If you require more than a 14-day supply or if the prescribed medication is not immediately needed, your community provider will send a prescription to a VA pharmacy so that the VA can provide you with your routine medication. In-network locations can be found at https://www.va.gov/find-loc ations/ Medical Devices: Your community provider may recommend that medical devices, adapted equipment, or other items be provided for the treatment or rehabilitation of your medical condition. Veterans are generally required to obtain these items through the Prosthetics and Sensory Aids Service (PSAS) in your referring facility. Emergency/Inpatient Services: You, your community provider, or your family must provide notification within 72hr or ER visit and/or admission by [phone]. Thank you for the opportunity to serve you and for your service to our great nation! [facility] Care [facility] the [facility] [address] [facility] [address] KATHY VALENCIA [facility]
--- OUTSIDE RECORDS SUMMARY | 2024-12-03 10:20 | XMS_ITS | Encounter Summary ---
Author Name Department of Vetera Affairs ([place] Organization [place] Address [address] [place] [address] Care Team Providers Care Director Online Marketing Name Role Phone TRAV ARAMBULA Primary Care [...] Name Patient's Relationship to Policy Everett DEYANIRA [facility] (WNR) MEDICARE ADVANTAGE [place] MEDIC ARE Apr 24, 2021 MOMCRWP 0 [id number] [phone] KEYANNA ELIZABETH PATIENT Selected Encounter This section includes the information on record at [place] for the Encounter. Date/Time Encounter Type Encounter Description Reason Provider Source Dec 03, 2024 03:20 PM Outpatient Encounter [facility] ASSESSMENT MARILYN BURGESS Encounter Template Text not used by [place] Plan of Treatment: Future Appointments (+ 6 [...] 20 appointments. The data comes from all [facility]. Appointment Date/Time Appointment Type Appointme nt Facility Name Dec 05, 2024 09:30 AM AMBULATORY - MEDICINE [facility] Dec 09, 2024 08:00 AM AMBULATORY - NONE [facility] Active, Pending, and Scheduled Orders This section includes a listing of several types of active, pending, and scheduled orders, including clinic medications orders, diagnostic test orders, procedure orders and consult orders; where the start date of the order is 45 days before the date of the Encounter or 45 days after the date of theEncounter. The data comes from all [facility]. Test Date/Time Test Type Test Details Facility Name Nov 14, 2024 10:02 AM Consult Order COMMUNITY CARE-PHYSICAL THERAPY [id number] Cons Medical Liaison's Choice [facility] Dec 04, 2024 08:28 AM Consult Order COMMUNITY CARE-[facility] DIRECTED CARE [id number] Cons Medical Liaison's Choice [facility] Encounter Notes: All associated encounter notes This section contains the clinical notes associated to the Encounter. Date/Time Encounter Note(s) Provider Source Dec 03, 2024 03:21 PM GERIATRIC MEDICINE NOTE: LOCAL TITLE: PERSONAL CARE SERVICES CASE MIX TOOL STANDARD TITLE: GERIATRIC MEDICINE NOTE DATE OF NOTE: DEC 03, 2024@15:21:02 ENTRY DATE: DEC 03, 2024@15:21:02 AUTHOR: MARILYN BURGESS EXP COSIGNER: URGENCY: STATUS: COMPLETED HCBS Case Mix & Budget Tool (CASE MIX) Date Given: 12/03/2024 Clinician: Marilyn Burgess Location: [facility] : [facility] SSN: [id number] : [birth year]) Gender: Man Type of Evaluation: Annual Anticipated Start Date: 12/03/2024 Anticipated Length of Service: 12 months Case Mix Level: G ADL Category: High Questions and Answers: Q1. DRESSING *2 Need some help from another person to put your clothes on. Q2. GROOMING *2 Needs and get daily help from another person. Q3. BATHING *4 Need and get help washing and drying your body. Q4. EATING *2 Need and get help in cutting food, buttering bread or arranging food. Q5. BED MOBILITY *2 Always need and get help to sit up. Q6. TRANSFERRING *2 Need one other person to help you. Q7. WALKING *2 Need and get help from one person to help you walk. Q8. BEHAVIOR 1 Occasional staff intervention / anxious, irritable, lethargic, demanding / responds to cues. Q9. COMMUNICATION 1 Usually Understood. Q10. TOILETING *6 Wet your pants and have bowel movements in your clothes very often. Q11. MDS HC 2.0/CPS Cognitive Skill for Daily Decision Making 2 Moderately Impaired - decisions poor; cues/supervision required. Q12. MDS 2.0/CPS: Short Term Memory (recall of what was learned or known) 1 Memory problem Q13. SPECIAL TREATMENTS 0 No TX Q14. CLINICAL MONITORING 0 Less than once a day Q15. SPECIAL NURSING No Q16. NEUROMUSCULAR DIAGNOSIS Yes COMMENTS This is a 10%SC Mobile who relies on his CG/Spouse for assistance in his ADL's. has dx of dementia without behavioral disturbances. Mobile reassessed for [facility] program and services. He relies on CG to help maintain his independence. SOURCES 1. Person, 2. Informant, 3. Medical Record /es/ MARILYN ROA [employer] TE[employer] SPECIALIST Signed: 12/03/2024 15:21 MARILYN BURGESS [facility]
--- OUTSIDE RECORDS SUMMARY | 2024-12-03 10:40 | XMS_ITS | Encounter Summary ---
Author Name [facility] [place] Organization [facility] [place] [place] Address [address] [place] [address] Care Team Providers Care Motorcycle Builder Name Role Phone TRAV ARAMBULA Primary Care [...] Name Patient's Relationship to Policy Everett DEYANIRA [facility] (WNR) MEDICARE ADVANTAGE [place] MEDIC ARE Apr 24, 2021 MOMCRWP 0 [id number] [phone] KEYANNA ELIZABETH PATIENT Selected Encounter This section includes the information on record at [place] for the Encounter. Date/Time Encounter Type Encounter Description Reason Pro vider Source Dec 03, 2024 03:40 PM Outpatient Encounter HCBC ASSESSMENT IHE Encounter Template Text not used by [...] 20 appointments. The data comes from all [facility]. Appointment Date/Time Appointment Type Appointme nt Facility Name Dec 05, 2024 09:30 AM [facility] Dec 09, 2024 08:00 AM [facility] - NONE [facility] Active, Pending, and Scheduled Orders This section includes a listing of several types of active, pending, and scheduled orders, including clinic medications orders, diagnostic test orders, procedure orders and consult orders; where the start date of the order is 45 days before the date of the Encounter or 45 days after the date of theEncounter. The data comes from all [facility]. Test Date/Time Test Type Test Details Facility Name Nov 14, 2024 10:02 AM Consult Order COMMUNITY CARE-PHYSICAL THERAPY 657A4 Cons Pattern [facility] Dec 04, 2024 08:28 AM Consult Order COMMUNITY CARE-GEC DIRECTED CARE 657A4 [facility] Encounter Notes: All associated encounter notes This section contains the clinical notes associated to the Encounter. Date/Time Encounter Note(s) Provider Source Dec 03, 2024 03:40 PM SOCIAL WORK NOTE: LOCAL TITLE: DIRECTED CARE STANDARD TITLE: SOCIAL WORK NOTE DATE OF NOTE: DEC 03, 2024@15:40 ENTRY DATE: DEC 03, 2024@15:40:33 AUTHOR: MARILYN BURGESS COSIGNER: URGENCY: STATUS: COMPLETED YEARLY ASSESSMENT AND REPORT DATE:Nov NAME:SAGE ELIZABETH ADDRESS:[address] [place] [address] PHONE: DATE OF :Feb [facility]:[place] CASE MIX LEVEL: A:[ ]G:[X} B:[ ]H:[ ] C:[ ]I:[ ] D:[ ]J:[ ] E:[ ]K:[ ] F:[ ]V:[ ] MARITAL STATUS: PROBLEM LIST: 1) Hearing loss 2) Depressive disorder (SCT 05542863) - Depression, unspecified (ICD-10-CM F32.A) 3) Vascular dementia without behavioral disturbance 4) Essential hypertension 5) Bursitis of finger 6) Rib pain 7) Obstructive Sleep Apnea of Adult (SCT 8008055660237) 8) Benign Prostatic Hypertrophy with Outflow Obstruction ([facility] [id number]) 9) History of circumcision 10) History of tonsillectomy 11) Elevated PSA ([facility] [id number]) 12) Essential Tremor ([facility] [id number]) 13) Abnormal Gait ([facility] [id number]) 14) Hx gastric ulcer with hemorrhage 15) cysts boils on back 16) Hx fall -no injury, uses cane/ walking stick 17) toxic sreen negative 18) Basal Cell Carcinoma of Skin ([facility] [id number]) 19) Cerebrovascular accident 20) Degeneration of Lumbar Intervertebral Disc ([facility] [id number]) 21) Pulmonary Embolism ([facility] [id number]) ACTIVE MEDICATIONS: Active Outpatient Medications (including Supplies): Issue Date Status Last Fill Active Outpatient Medications Refills Expiration = 1) AMLODIPINE BESYLATE 10MG TAB Qty: 90 for 90 ACTIVE Issue: 11/14/24 days Sig: TAKE ONE TABLET BY MOUTH ONCE A Refills: 3 Last : 11/14/24 DAY Expr : 11/15/25 Indication: FOR HIGH BLOOD PRESSURE 2) DOCUSATE NA 50MG/SENNOSIDES 8.6MG TAB Qty: ACTIVE Issue: 05/03/24 100 for 90 days Sig: TAKE 1 TABLET BY MOUTH Refills: 3 Last : 05/03/24 TWICE DAILY NEEDED HOLD FOR LOOSE Expr : 05/04/25 STOOL/DIARRHEA. Indication: FOR SOFTENING STOOL 3) POLYETHYLENE GLYCOL 3350 ORAL PWDR Qty: 1530 ACTIVE Issue: 05/03/24 for 90 days Sig: MIX AND DRINK 1 CAPFUL BY Refills: 3 Last : 05/03/24 MOUTH ONCE A DAY (MEASURE WITH CAP AND MIX Expr : 05/04/25 IN 8 OZ OF WATER) Indication: FOR CONSTIPATION 4) RIVAROXABAN 20MG TAB Qty: 90 for 90 days ACTIVE Issue: 11/01/24 Sig: TAKE ONE TABLET BY MOUTH EVERY EVENING Refills: 3 Last : 11/01/24 WITH MEAL(S) BEGIN IN 22 DAYS, AFTER TAKING Expr : 11/02/25 15 MG TWICE DAILY FOR 21 DAYS. Start Date Active Non-VA Medications Status Stop Date = 1) Non-VA ASCORBIC ACID 500MG TAB SiMG BY ACTIVE MOUTH ONCE A DAY Indication: FOR VITAMIN C SUPPLEMENTATION 2) Non-VA CALCIUM/MAGNESIUM TAB,EC Sig: BY ACTIVE MOUTH 3) Non-VA CYANOCOBALAMIN 500MCG TAB SiMCG ACTIVE BY MOUTH ONCE A DAY Indication: FOR VITAMIN B12 SUPPLEMENTATION 4) Non-VA FERROUS SULFATE 325MG TAB SiMG ACTIVE BY MOUTH ONCE A DAY Indication: UNKNOWN 5) Non-VA FISH OIL 1000MG (500MG DHA/EPA) CAP ACTIVE SiMG BY MOUTH TWICE A DAY Indication: FOR HIGH TRIGLYCERIDES 6) Non-VA FLUOXETINE HCL 20MG CAP SiMG BY ACTIVE MOUTH EVERY MORNING Indication: FOR DEPRESSION 7) Non-VA GINKGO BILOBA CAP/TAB Si TABLET ACTIVE BY MOUTH ONCE A DAY Indication: UNKNOWN 8) Non-VA MILK THISTLE CAP/TAB Si CAP/TAB ACTIVE BY MOUTH ONCE A DAY Indication: UNKNOWN 9) Non-VA MULTIVITAMIN CAP/TAB Sig: BY MOUTH ACTIVE 10) Non-VA SAW PALMETTO CAP/TAB Si CAP/TAB ACTIVE BY MOUTH ONCE A DAY Indication: UNKNOWN 11) Non-VA TRIPLE MUSHROOM CAP/TAB Sig: BY MOUTH ACTIVE 12) Non-VA VITAMIN A 3000MCG (25240 UNIT) CAP ACTIVE [id number] BY MOUTH ONCE A DAY Indication: FOR VITAMIN A SUPPLEMENTATION 13) Non-VA VITAMIN E 180MG (400UNIT) CAP Sig: ACTIVE 360MG BY MOUTH ONCE A DAY Indication: FOR VITAMIN SUPPLEMENTATION 14) Non-VA ZINC 50MG (FROM SULFATE) CAP Sig: ACTIVE 50MG BY MOUTH 18 Total Medications === EMERGENCY CONTACTS: Name:Eh Elizabeth Relationship: son/AR Phone: [phone] Name:Kayla Elizabeth Relationship: spouse Phone: [phone] Name:snehal Campbell Relationship: daughter Phone: [phone] GOALS OF CARE: Wilson would like to remain safely in his home with his spouse and family caring for him. Wilson has an AR which is his son. === PRESENTING PROBLEMS: [ ]Inpatient Acute Hospital w/overnight stay [ ]Emergency Room Visit [X}Physician Visit/Purpose: [ ]Changes in Medical Condition: [ ]Changes in Household Composition: [ ]Changes in Supports: [ ]Other: Reason: Routine appointments with providers. FALLS: [X}No Falls in Last 90 Days [ ]No Falls in Last 30 Days but Fall in 31-90 Days [ ]1 Fall in Last 30 Days [ ]2 or More Falls in Last 30 Days [ ]1 or More Falls in the Last 6 Months. SKINS CONDITIONS: [ ]Pressure Sores [ ]Open Lesions [ ]Skin Tears or Cuts [ ]Bruises, Rashes [ ]Foot Problems that Interfere with Gait No significant skin conditions that affect 's independece were noted. PREVENTION: No Tobacco: No Wants to Quit: Yes Influenza Vaccine: Yes Pneumonia Vaccine: Yes Shingles Vaccine: === HEALTH HISTORY: has hx of dementia that affects his ability to be independent. engages in dermatology care for skin cancer. BEHAVIORAL HEALTH: [ ]Makes Negative Statements [ ]Expresses what appears to be unrealistic fears [ ]Repetitive Health Complaints [ ]Sad, Pained, Worried Facial Expressions [ ]Crying, Tearfulness [ ]Withdrawal from activites of interests [ ]Expression of a lack of pleasure in life [ ]Pesistent anger with self or others [ ]Repetitive anxious compliants/concerns - not health related [ ]Insomniac / changes in usual sleep patterns [ ]Repetitive verbalization (calling out to God or help) [ ]Recurrent Statements that something terrible is about to happen No behaviors were noted in this assessment YesIs Depression Suspected: YesDoes have an Existing Psychiatric Diagnosis: EXPRESSION: [ ]Understood - Client expresses ideas without difficulty [ ]Usually Understood - Has difficulty finding words [ ]Often Understood - Has difficulty finishing thoughts, needs prompting [X}Sometimes Understood - Ability is limited to concrete requests [ ]Rarely/Never Understood COMPREHENSION: [ ]Understands - Clear comprehension [ ]Usually Understands - Misses some of the message [ ]Often Understands - Misses some or all, needs prompting [X}Rarely/Never Understands COGNTIVE SKILLS FOR DECISION MAKING: [ ]Independent - Consistent and Reasonable [ ]Modified [place] - Difficulty in new situations [ ]Minimally Impaired - Decisions can become poor or unsafe [X}Moderately Impaired - Consistently poor and usafe [ ]Severely Impaired - Never/Rarely makes decisions SIGNIFICANT LIFE CHANGES: [ ]Loss of Significant other [ ]Change in Health Condition [X}Change in Living Condition [X}Chane in the Ability to Care for Self [ ]Change in Sleeping Patterns [ ]Change in Behavioral Pattern VARIOUS BEHAVIORS: [ ]Wandering [ ]Repetitive Actions [ ]Rummaging, Hoarding, Hiding, Losing Items [ ]Suspicious [ ]Sundowning [ ]Inappropriate Behaviors Yes Is Dementia Suspected: Yes Dementia Diagnosis: No Suspected Substance Use: APPEARS TO BE: [ ]Mixing Medications [ ]Receiving Medications form Multiple Physicians [ ]Taking Medications with Alcohol [ ]Excessively Using Pain Medication [ ]Excessively Using Over the Counter Meds [ ]Mixing Medicine with Over the Counter /Herbal Remedies ELDER ABUSE/PROTECTIVE SERVICES NEED SUSPECTED: No Do you feel someone is taking advantage of you? Yes If you identify as spiritual/or voodoo, are these needs being met? Any needs?: No needs currently met. has been attempting to go outside and take a short walk to the nearby park bench. VETERANS MEDICATIONS: Yes Is the Taking Medications: No Does the understand the need and usage of medications? Reasons for not taking medications: [ ]Trouble taking the meds [ ]No Access to Pharmacy [ ]Needs Additional Education [ ]Forgets to take them [ ]Does not like the side effects Who is responsible for Medication set-up: spouse Wilson can understand the importance of taking his medication he is unable to understand what his medications are for. Veterans spouse who is a retired nurse assists the Wilson in medication administration and monitoring. NUTRITIONAL SCREENING: DIFFICULTY WITH: [ ]Swallowing [ ]Indigestion [ ]Heartburn [ ]Vomiting [ ]Diarrhea [X}Constipation [ ]No Difficulties Yes On a Special Diet? No Any spoiled food? Yes Does anyone assist with meal prep? Yes Have you made change in the way you eat because of illness? No Do you eat fewer than 2 meals per day? No Do you eat few fruits and veggies or milk products? No Do you have 3 or more drinks of beer, liquor, or wine daily? No Do you have tooth or mouth problems that make it hard to eat? Yes Do you always have enough money to buy food? No Do you eat alone most of the time? No Have you lost or gained 10 pounds in the last 6 months without wanting to? No Are you usually physically able to shop, cook, and feed yourself? Who Does the Grocery Shopping? spouse No Is there a need for home delivered meals? No Is there a need for congregate meals? No Is there a need for emergency food? SUMMARY OF NEEDS IDENTIFIED: spouse completes all the shopping, meal prep and cooking. === TRANSPORTATION: Yes Does the own a Vehicle? No Does the Drive? Yes Does the have a Drivers License? Yes Has anyone asked the Wilson not to Drive? Yes Does the have any special needs (Wheelchair, Etc)? How does the Wilson get to where he/she needs to go? Wilson does not drive his family provide his transportation to where he needs to go. Wilson family has asked him to not drive. He utilizes a wheelchair/cane to support his mobility. ENVIRONMENT: environment is suitable for his current needs. IDENTIFIED NEEDS FOR HOME: no identified needs currently. === Pattern Weaver/Agency reporting: [X}[facility] ( ) [ ][facility] [place] ( ) [ ][facility] [place] [place] ( ) Pattern Weaver: Pilar Bowling /viktoriya/ MARILYN BURGESS GI PHYSICIAN SOUND RECORDIST Signed: 12/03/2024 15:51 MARILYN BURGESS [facility]
--- OUTSIDE RECORDS SUMMARY | 2024-12-03 10:54 | XMS_ITS | Encounter Summary ---
Author Name [facility] [place] Organization [place] Address [address] [place] [address] Care Team Providers Care Nail Machine Operator Name Role Phone TRAV ARAMBULA Primary Care [...] Patient's Relationship to Policy Everett DEYANIRA [facility] (WNR) MEDICARE ADVANTAGE [place] MEDIC ARE Apr 24, 2021 MOMCRWP 0 [id number] [phone] KEYANNA ELIZABETH PATIENT Selected Encounter This section includes the information on record at [place] for the Encounter. Date/Time Encounter Type Encounter Description Reason Provider Source Dec 03, 2024 03:54 PM Outpatient Encounter TELEPHONE/GERIATRIC MARILYN MORSE Encounter Template Text not used by [place] Plan of Treatment: Future Appointments (+ 6 [...] 20 appointments. The data comes from all [place] treatment [facility]. Appointment Date/Time Appointment Type Appointme nt Facility Name Dec 05, 2024 09:30 AM [facility]BULATORY - [facility] Dec 09, 2024 08:00 AM AMBULATORY - NONE [facility] Active, Pending, and Scheduled Orders This section includes a listing of several types of active, pending, and scheduled orders, including clinic medications orders, diagnostic test orders, procedure orders and consult orders; where the start date of the order is 45 days before the date of the Encounter or 45 days after the date of theEncounter. The data comes from all [facility]. Test Date/Time Test Type Test Details Facility Name Nov 14, 2024 10:02 AM Consult Order COMMUNITY CARE-PHYSICAL THERAPY 657A4 Cons Casino Attendant's Choice [facility] Dec 04, 2024 08:28 AM Consult Order COMMUNITY CARE-GEC DIRECTED CARE 657A4 Cons Casino Attendant's Choice [facility] Encounter Notes: All associated encounter notes This section contains the clinical notes associated to the Encounter. Date/Time Encounter Note(s) Provider Source Dec 03, 2024 03:54 PM SOCIAL WORK NOTE: LOCAL TITLE: PERSONAL CARE SERVICES REVIEW STANDARD TITLE: SOCIAL WORK NOTE DATE OF NOTE: DEC 03, 2024@15:54 ENTRY DATE: DEC 03, 2024@15:54:55 AUTHOR: MARILYN BURGESS COSIGNER: URGENCY: STATUS: COMPLETED Personal Care Services Review Type of review: Reauthorization Information to complete oversight obtained from: Review of medical record Review of community vendor submitted documentation Community vendor staff Specify Contact: Pilar Bowling Community vendor Name: [facility] Community vendor point of contact Name: Pilar Bowling Care plan has been reviewed: is enrolled in [facility] ([facility]) Monthly [facility]DC Provider contacts with [facility]: Month 1 contact: Phone Date: 09/17/24 Month 2 contact: Phone Date: 10/09/24 Month 3 contact: In person Date: 10/29/24 Quarterly report submitted by [facility]. has had no ER visits or hospital stays. [facility] has had no falls reported. [facility] gets upset that he can no longer do things he used to. he has dementia. He has no SI or HI. [facility] caregiver turning in timesheets appropriately. MSR, timesheets and budget all reviewed. [facility] is within his global budget. Timesheets addressed with [facility] agency. Attempted to contact with no success. The [facility] spending plan has been reviewed. Care rendered as authorized. meets administrative eligibility criteria. [facility] meets clinical eligibility criteria. Case Mix Tool: Date Completed: Nov Case Mix Score: G Range of Hours to be used: enrolled in [facility] Plan: Authorization(s) updated [facility] Case Mix Score: slight decrease from CM H to CM G Standardized Episode of Care (SEOC) SEOC duration: 365 days /viktoriya/ MARILYN BURGESS HEAD KNITTING MACHINE FIXER OPERATIONS SUPPORT ANALYST Signed: 12/03/2024 15:58 MARILYN BURGESS [facility]
[2024-12-04] VITALS (9 sets, daily range): BP systolic 139–151; BP diastolic 57–79; PULSE 52–62; RESP 11–19; O2SAT 92–96; BMI 27.7
--- OUTSIDE RECORDS SUMMARY | 2024-12-04 04:06 | XMS_ITS | Continuity of Care Document ---
Author Name [facility] Organization [facility] Care Team Providers Care Drum Handler Name Role Phone [facility] Unavailable Unavailable Problems Combined list of problems from Department of Defense and Veterans Affairs facilities. It does not include entries that were removed or entered in error. Problem Status Onset Date Problem Type Date of Resolution Comments Source Abnormal Gait (SCT [id number]) Active Condition Apr 05, 2023 Entered By: TRAV ARAMBULA Comment: lewis [place] [facility] Basal Cell Carcinoma of Skin (SCT [id number]) Active Condition Apr 05, 2023 Entered By: TRAV ARAMBULA Comment: nose [place] [facility] Benign Prostatic Hypertrophy with Outflow Obstruction (SCT 800432572) Active Condition Apr 05, 2023 Entered By: TRAV ARAMBULA Comment: nbo more psa levels [place] [facility] Bursitis of finger Active Condition J 2022 Entered By: TRAV ARAMBULA Comment: right thumb [place] [facility] Cerebrovascular accident Active Condition Nov 07, 2023 Entered By: TRAV ARAMBULA Comment: left sideed wekaness and mind body not coordiantedJul 2023 Entered By: TRAV ARAMBULA Comment: ed visits 04/12/23 [place] [facility] cysts boils on back Active Condition [place] [facility] Degeneration of Lumbar Intervertebral Disc (SCT 74651083) Active Condition [place] [facility] Depressive disorder (SCT 03158216) - Depression, unspecified (ICD-10-CM F32.A) Active Condition [place] [facility] Elevated PSA (SCT 878608628) Active Condition Nov 20, 2022 Entered By: TRAV ARAMBULA Comment: urology said no worries, no more psa levelsJul 2023 Entered By: TRAV ARAMBULA Comment: also fb private non [facility] PCP [place] [facility] Essential hypertension Active Condition [place] [facility] Essential Tremor ([facility] [id number]) Active Condition [place] [facility] Hearing loss Active Condition [place] [facility] History of circumcision Active Condition Nov 20, 2022 Entered By: TRAV ARAMBULA Comment: 1944 [place] [facility] History of tonsillectomy Active Condition Nov 20, 2022 Entered By: TRAV ARAMBULA Comment: and adenoidectomy, 1944 [place] [facility] Hx fall -no injury, uses cane/ walking stick Active Condition [place] [facility] Hx gastric ulcer with hemorrhage Active Condition [place] [facility] Obstructive Sleep Apnea of Adult ([facility] [id number]) Active Condition [place] [facility] Pulmonary Embolism ([facility] [id number]) Active Condition [place] [facility] Rib pain Active Condition Nov 20 Entered By: TRAV ARAMBULA Comment: left , old injury [place] [facility] toxic sreen negative Active Condition [place] [facility] Vascular dementia without behavioral disturbance Active Condition [place] [facility] Diagnosis: ICD-10-CM Z00.01 Encounter for general adult medical exam w abnormal findings Active Diagnosis [facility] Diagnosis: ICD-10-CM Z71.3 Dietary counseling and surveillance Active Diagnosis [place] [facility] Diagnosis: ICD-10-CM I26.99 Other pulmonary embolism without acute cor pulmonale Active Diagnosis [place] [facility] Diagnosis: ICD-10-CM Z51.81 Encounter for therapeutic drug level monitoring Active Diagnosis [place] [facility] Diagnosis: ICD-10-CM Z74.1 Need for assistance with personal care Active Diagnosis [place] [facility] Diagnosis: ICD-10-CM Z09 Encntr for f/u exam aft trtmt for cond oth than malig neoplm Active Diagnosis [facility] Diagnosis: ICD-10-CM I27.82 Chronic pulmonary embolism Active Diagnosis [place] [facility] Diagnosis: ICD-10-CM Z23 Encounter for immunization Active Diagnosis [facility] Diagnosis: ICD-10-CM M62.81 Muscle weakness (generalized) Active Diagnosis [facility] Diagnosis: ICD-10-CM Z71.89 Other specified counseling Active Diagnosis [facility] Diagnosis: ICD-10-CM R91.8 Other nonspecific abnormal finding of lung field Active Diagnosis [facility] Diagnosis: ICD-10-CM R05.8 Other specified cough Active Diagnosis [facility] Medications Combined list of outpatient medications from Department of Defense and Veterans Affairs facilities.Medications provided include 1) outpatient medications from the last 15 months, and 2) patient-reported medications. Medication Details Route Status Patient Instructions Prescription Expires Prescription Number Last Dispense Date Ordering Provider Order Date Order Qty Source AMLODIPINE BESYLATE 10MG TAB TAKE ONE TABLET BY MOUTH ONCE A DAY FOR HIGH BLOOD PRESSURE ORAL ACTIVE 11/15/2025 [id number] 5 CAMI ARAMBULA 2024 90 [facility] AMLODIPINE BESYLATE 10MG TAB TAKE ONE TABLET BY MOUTH ONCE A DAY FOR HIGH BLOOD PRESSURE ORAL DISCONT INUED 11/07/2024 [id number] 4 CAMI ARAMBULA 2023 90 [facility] APIXABAN 5MG TAB TAKE ONE TABLET BY MOUTH TWICE A DAY FOR ANTICOAG ULATION ORAL DISCONT INUED BY PROVIDE R 05/24/2025 [id number] CLARE COOK 2024 120 [place] [facility] APIXABAN 5MG TAB TAKE ONE TABLET BY MOUTH TWICE A DAY FOR ANTICOAG ULATION ORAL DISCONT INUED (EDIT) 05/06/2025 [id number] 5 LINDA BOATENG 2024 60 [place] [facility] ASCORBIC ACID 500MG TAB TAKE ONE TABLET BY MOUTH ONCE A DAY ORAL ACTIVE CAMI ARAMBULA 2022 [facility] CALCIUM/MAG NESIUM TAB,EC TAKE BY MOUTH ONCE A DAY ORAL ACTIVE CAMI ARAMBULA 2022 [facility] CARBAMIDE PEROXIDE 6.5%/GLYCER IN SOLN,OTIC INSTILL 1 DROP IN BOTH EARS EVERY 4 WEEKS FOR EAR WAX BLOCKAGE AURICU LAR (OTIC) 02/05/2024 [id number] CAMI ARAMBULA 2023 15 [facility] CETIRIZINE HCL 10MG TAB TAKE ONE TABLET BY MOUTH ONCE A DAY NEEDED FOR ALLERGY SYMPTOMS ORAL 06/14/2024 [id number] ELIDIA RUBIO 2023 90 [facility] CLOPIDOGREL BISULFATE 75MG TAB TAKE ONE TABLET BY MOUTH ONCE A DAY FOR STROKE PREVENTI ON ORAL 06/13/2024 [id number] 4 CAMI ARAMBULA 2023 90 [facility] CYANOCOBALA MIN 500MCG TAB TAKE ONE TABLET BY MOUTH ONCE A DAY ORAL ACTIVE CAMI ARAMBULA 2022 [facility] DOCUSATE NA 50MG/SENNOS IDES 8.6MG TAB TAKE 1 TABLET BY MOUTH TWICE DAILY NEEDED FOR SOFTENIN G STOOL HOLD FOR LOOSE STOOL/DI ARRHEA. ORAL ACTIVE 05/04/2025 [id number] 5 CAMI ARAMBULA 2024 100 [facility] ENSURE PLUS LIQUID CHOCOLATE TAKE 1 CANFUL BY MOUTH ONCE A DAY FOR NUTRITIO N SUPPLEME NTATION ORAL 11/02/2024 [id number] 5 FLEIX GARCÍA E 2023 24 [facility] FERROUS SO4 325MG TAB TAKE ONE TABLET BY MOUTH ONCE A DAY ORAL ACTIVE CAMI ARAMBULA 2022 [facility] FISH OIL 1000MG (500MG DHA/EPA) CAP,ORAL TAKE 1 CAPSULE BY MOUTH TWICE A DAY ORAL ACTIVE CAMI ARAMBULA 2022 [facility] FLUOXETINE HCL 20MG CAP TAKE 1 CAPSULE BY MOUTH EVERY MORNING ORAL ACTIVE CAMI ARAMBULA 2023 [facility] FLUTICASONE PROPIONATE 50MCG/SPRAY SOLN,NASAL, 16GM INSTILL 1 SPRAY IN NOSTRIL( S) ONCE A DAY NEEDED FOR RHINITIS (MUST BE USED DIRECTED FOR MINIMUM OF 21 DAYS TO PROVIDE ADEQUATE BENEFITS ) NASAL 06/14/2024 [id number] ELIDIA RUBIO 2023 3 [facility] GINKGO BILOBA CAP/TAB TAKE ONE TABLET BY MOUTH ONCE A DAY ORAL ACTIVE CAMI ARAMBULA R 2022 [place] [facility] LOSARTAN POTASSIUM 100MG TAB TAKE ONE TABLET BY MOUTH ONCE A DAY FOR HIGH BLOOD PRESSURE ORAL DISCONT INUED BY PROVIDE R 11/07/2024 [id number] 4 CAMI ARAMBULA R 2023 90 [place] [facility] MILK THISTLE CAP/TAB TAKE 1 CAP/TAB BY MOUTH ONCE A DAY ORAL ACTIVE CAMI ARAMBULA 2022 [place] [facility] MULTIVITAMI N CAP/TAB TAKE BY MOUTH ONCE A DAY ORAL ACTIVE CAMI ARAMBULA R 2022 [facility] POLYETHYLEN E GLYCOL 3350 PWDR,ORAL MIX AND DRINK 1 CAPFUL BY MOUTH ONCE A DAY FOR CONSTIPA TION (MEASURE WITH CAP AND MIX IN 8 OZ OF WATER) ORAL ACTIVE 05/04/2025 [id number] 5 CAMI ARAMBULA R 2024 1530 [facility] RIVAROXABAN 15MG TAB TAKE ONE TABLET BY MOUTH TWICE A DAY WITH MEAL(S) FOR 21 DAYS ORAL 08/15/2024 [id number] 5 BRYANT OROZCO 2024 42 [place] [facility] RIVAROXABAN 20MG TAB TAKE ONE TABLET BY MOUTH EVERY EVENING WITH MEAL(S) BEGIN IN 22 DAYS, AFTER TAKING 15 MG TWICE DAILY FOR 21 DAYS. ORAL ACTIVE 11/02/2025 [id number] 5 BRYANT OROZCO 2024 90 [place] [facility] RIVAROXABAN 20MG TAB TAKE ONE TABLET BY MOUTH EVERY EVENING WITH MEAL(S) BEGIN IN 22 DAYS, AFTER TAKING 15 MG TWICE DAILY FOR 21 DAYS. ORAL DISCONT INUED 10/14/2024 [id number] 5 BRYANT OROZCO 2024 90 [place] [facility] SAW [place] CAP/TAB TAKE 1 CAP/TAB BY MOUTH ONCE A DAY ORAL ACTIVE CAMI ARAMBULA 2022 [place] [facility] TRIPLE MUSHROOM CAP/TAB TAKE BY MOUTH ONCE A DAY ORAL ACTIVE CAMI ARAMBULA R 2022 [facility] VITAMIN A [id number] CAP TAKE 1 CAPSULE BY MOUTH ONCE A DAY ORAL ACTIVE CAMI ARAMBULA R 2022 [facility] VITAMIN E 180MG (400UNIT) CAP TAKE 2 CAPSULES BY MOUTH ONCE A DAY ORAL ACTIVE CAMI ARAMBULA R 2022 [facility] ZINC 50MG (FROM SULFATE) CAP TAKE 1 CAPSULE BY MOUTH ORAL ACTIVE CAMI ARAMBULA R 2022 [facility] Allergies, Adverse Reactions, Alerts Combined list of allergies from Department of Defense and Veterans Affairs facilities. It does not include entries that were removed or entered in error. Substance Category Reaction Severity Reaction type Status Date Reported Comments Source CHOCOLATE Propensity to adverse reactions to substance (finding) Sneezing MILD active 3 [facility] LISINOPRIL Propensity to adverse reactions to drug (finding) Cough active [address] [place] [address] DIVISION Immunizations Combined list of available immunizations from the Department of [facility] and [facility] facilities. Immunization Series Date Given Administered By Site Reaction Lot Number CVX Code Drug Construction Job Titles Status Comments Source INFLUENZA, HIGH-DOSE, TRIVALENT, PF 2023 ANIRUDH FRENCH RIGHT DELTO ID [id number] 135 complet ed [facility] INFLUENZA, INJECTABLE, QUADRIVALENT, PRESERVATIVE FREE 2022 MAAME MYERS LEFT DELTO ID [id number] 150 complet ed [facility] ZOSTER RECOMBINANT 2 2022 MAAME MYERS RIGHT DELTO ID [id number] 187 complet ed [facility] ZOSTER RECOMBINANT 2022 MAAME MYERS RIGHT DELTO ID [id number] 187 complet ed [facility] COVID-19 (JAMA), VECTOR-NR, [id number], PF, 0.5 ML 1 2020 212 complet ed HISTORICA L INFORMATI ON - FROM OTHER REGISTRY, ANDREA FLEM[facility] COVID-19 (JAMA), VECTOR-NR, [id number], PF, 0.5 ML 1 2020 212 complet ed HISTORICA L INFORMATI ON - FROM OTHER REGISTRY, [facility] N Results Combined list of recent chemistry, hematology and other laboratory results from Department of Defense and Veterans Affairs, ranging from 15 months to all on record, depending upon the facility. Order Name Results Value Reference Range Date Interpretation Specimen Comments Source B12 COBALAMIN (VITAMIN B12) [MASS/VOLUME] IN SERUM OR PLASMA 735 pg/mL 213 - 816 10/31 Specimen Type: SERUM No comment entered. Ordering Provider: CAMI ARAMBULA Report Released Date/Time : Nov 07, 2023 01:47 PM Reporting Lab: [place] [facility] [address] [place] [phone] Performin g Lab: [place] [facility] [address] [place] [address] [facility] CBC LEUKOCYTES [#/VOLUME] IN BLOOD BY AUTOMATED COUNT 6.3 10*3/u L 3.6 - 11.2 10/31 Specimen Type: BLOOD No comment entered. Ordering Provider: CAMI ARAMBULA Report Released Date/Time : Nov 07, 2023 01:47 PM Reporting Lab: [place] [facility] [address] [place] [address] Performin g Lab: [place] [facility] [address] [place] [address] 8 [facility] CBC ERYTHROCYTES [#/VOLUME] IN BLOOD BY AUTOMATED COUNT 4.92 10*6/u L 4.10 - 5.70 10/31 Specimen Type: BLOOD No comment entered. Ordering Provider: CAMI ARAMBULA Report Released Date/Time : Nov 07, 2023 01:47 PM Reporting Lab: [place] [facility] [address] [place] [phone] Performin g Lab: [place] [facility] [address] [place] [address] [facility] CBC HEMOGLOBIN [MASS/VOLUME] IN BLOOD 14.9 g/dL 13.1 - 16.8 10/31 Specimen Type: BLOOD No comment entered. Ordering Provider: CAMI ARAMBULA Report Released Date/Time : Nov 07, 2023 01:47 PM Reporting Lab: [place] [facility] [address] [place] [address] 8 Performin g Lab: [place] [facility] [address] [place] [address] 8 [facility] CBC HEMATOCRIT [VOLUME FRACTION] OF BLOOD 43.7 38.2 - 48.4 10/31 Specimen Type: BLOOD No comment entered. Ordering Provider: CAMI ARAMBULA Report Released Date/Time : Nov 07, 2023 01:47 PM Reporting Lab: [place] [facility] [address] [place] [address] 8 Performin g Lab: [place] [facility] [address] [place] [address] 8 [facility] CBC MCV [ENTITIC VOLUME] BY AUTOMATED COUNT 88.8 fL 80.0 - 100.0 10/31 Specimen Type: BLOOD No comment entered. Ordering Provider: CAMI ARAMBULA Report Released Date/Time : Nov 07, 2023 01:47 PM Reporting Lab: [place] [facility] [address] [place] [address] 8 Performin g Lab: [place] [facility] [address] [place] [address] 8 [facility] CBC MCH [ENTITIC MASS] BY AUTOMATED COUNT 30.3 pg 27.0 - 34.0 10/31 Specimen Type: BLOOD No comment entered. Ordering Provider: CAMI ARAMBULA Report Released Date/Time : Nov 07, 2023 01:47 PM Reporting Lab: [place] [facility] [address] [place] [address] 8 Performin g Lab: [place] [facility] [address] [place] [address] 8 [facility] CBC MCHC [MASS/VOLUME] BY AUTOMATED COUNT 34.1 g/dL 33.0 - 36.0 10/31 Specimen Type: BLOOD No comment entered. Ordering Provider: CAMI ARAMBULA Report Released Date/Time : Nov 07, 2023 01:47 PM Reporting Lab: [place] [facility] [address] [place] [address] 8 Performin g Lab: [place] [facility] [address] [place] [address] 8 [facility] CBC PLATELETS [#/VOLUME] IN BLOOD BY AUTOMATED COUNT 273 10*3/u L 150 - 400 10/31 Specimen Type: BLOOD No comment entered. Ordering Provider: CAMI ARAMBULA Report Released Date/Time : Nov 07, 2023 01:47 PM Reporting Lab: [place] [facility] [address] [place] [address] 8 Performin g Lab: [place] [facility] [address] [place] [address] [facility] CBC PLATELET MEAN VOLUME [ENTITIC VOLUME] IN BLOOD BY AUTOMATED COUNT 11.1 fL 7.5 - 11.2 10/31 Specimen Type: BLOOD No comment entered. Ordering Provider: CAMI ARAMBULA Report Released Date/Time : Nov 07, 2023 01:47 PM Reporting Lab: [place] [facility] [address] [place] [address] 8 Performin g Lab: [place] [facility] [address] [place] [address] [facility] CBC ERYTHROCYTE DISTRIBUTION WIDTH [RATIO] BY AUTOMATED COUNT 12.5 11.8 - 15.1 10/31 Specimen Type: BLOOD No comment entered. Ordering Provider: CAMI ARAMBULA Report Released Date/Time : Nov 07, 2023 01:47 PM Reporting Lab: [place] [facility] [address] [place] [address] 8 Performin g Lab: [place] [facility] [address] [place] [address] 8 [facility] CBC LYMPHOCYTES/1 00 LEUKOCYTES IN BLOOD BY AUTOMATED COUNT 18.1 10/31 Specimen Type: BLOOD No comment entered. Ordering Provider: CAMI ARAMBULA Report Released Date/Time : Nov 07, 2023 01:47 PM Reporting Lab: [place] [facility] [address] [place] [address] 8 Performin g Lab: [place] [facility] [address] [place] [address] 8 [facility] CBC MONOCYTES/100 LEUKOCYTES IN BLOOD BY AUTOMATED COUNT 10.1 10/31 Specimen Type: BLOOD No comment entered. Ordering Provider: CAMI ARAMBULA Report Released Date/Time : Nov 07, 2023 01:47 PM Reporting Lab: [place] [facility] [address] [place] [address] 8 Performin g Lab: [place] [facility] [address] [place] [address] 8 [facility] CBC NEUTROPHILS/1 00 LEUKOCYTES IN BLOOD BY AUTOMATED COUNT 70.1 10/31 Specimen Type: BLOOD No comment entered. Ordering Provider: CAMI ARAMBULA Report Released Date/Time : Nov 07, 2023 01:47 PM Reporting Lab: [place] [facility] [address] [place] [address] 8 Performin g Lab: [place] [facility] [address] [place] [address] 8 [facility] CBC EOSINOPHILS/1 00 LEUKOCYTES IN BLOOD BY AUTOMATED COUNT 1.1 10/31 Specimen Type: BLOOD No comment entered. Ordering Provider: CAMI ARAMBULA Report Released Date/Time : Nov 07, 2023 01:47 PM Reporting Lab: [place] [facility] [address] [place] [address] 8 Performin g Lab: [place] [facility] [address] [place] [address] 8 [facility] CBC BASOPHILS/100 LEUKOCYTES IN BLOOD BY AUTOMATED COUNT 0.3 10/31 Specimen Type: BLOOD No comment entered. Ordering Provider: CAMI ARAMBULA Report Released Date/Time : Nov 07, 2023 01:47 PM Reporting Lab: [place] [facility] [address] [place] [address] 8 Performin g Lab: [place] [facility] [address] [place] [address] 8 [facility] CBC LYMPHOCYTES [#/VOLUME] IN BLOOD BY AUTOMATED COUNT 1.13 10*3/u L 0.77 - 4.50 10/31 Specimen Type: BLOOD No comment entered. Ordering Provider: CAMI ARAMBULA Report Released Date/Time : Nov 07, 2023 01:47 PM Reporting Lab: [place] [facility] [address] [place] [address] 8 Performin g Lab: [place] [facility] [address] [place] [address] 8 [facility] CBC MONOCYTES [#/VOLUME] IN BLOOD BY AUTOMATED COUNT 0.63 10*3/u L 0.19 - 0.8 10/31 Specimen Type: BLOOD No comment entered. Ordering Provider: CAMI ARAMBULA Report Released Date/Time : Nov 07, 2023 01:47 PM Reporting Lab: [place] [facility] [address] [place] [address] 8 Performin g Lab: [place] [facility] [address] [place] [address] [facility] CBC NEUTROPHILS [#/VOLUME] IN BLOOD BY AUTOMATED COUNT 4.39 10*3/u L 2.10 - 8.00 10/31 Specimen Type: BLOOD No comment entered. Ordering Provider: CAMI ARAMBULA Report Released Date/Time : Nov 07, 2023 01:47 PM Reporting Lab: [place] [facility] [address] [place] [address] 8 Performin g Lab: [place] [facility] [address] [place] [address] 8 [facility] CBC EOSINOPHILS [#/VOLUME] IN BLOOD BY AUTOMATED COUNT 0.07 10*3/u L 0.00 - 0.60 10/31 Specimen Type: BLOOD No comment entered. Ordering Provider: CAMI ARAMBULA Report Released Date/Time : Nov 07, 2023 01:47 PM Reporting Lab: [place] [facility] [address] [place] [address] 8 Performin g Lab: [place] [facility] [address] [place] [address] [facility] CBC BASOPHILS [#/VOLUME] IN BLOOD BY AUTOMATED COUNT 0.02 10*3/u L 0.00 - 0.20 10/31 Specimen Type: BLOOD No comment entered. Ordering Provider: CAMI ARAMBULA Report Released Date/Time : Nov 07, 2023 01:47 PM Reporting Lab: [place] [facility] [address] [place] [address] 8 Performin g Lab: [place] [facility] [address] [place] [address] [facility] CBC IMMATURE GRANULOCYTES/ 100 LEUKOCYTES IN BLOOD BY AUTOMATED COUNT 0.3 10/31 Specimen Type: BLOOD No comment entered. Ordering Provider: CAMI ARAMBULA Report Released Date/Time : Nov 07, 2023 01:47 PM Reporting Lab: [place] [facility] [address] [place] [address] Performin g Lab: [place] [facility] [address] [place] [address] [facility] CBC IMMATURE GRANULOCYTES [#/VOLUME] IN BLOOD BY AUTOMATED COUNT 0.02 10*3/u L 0.00 - 0.05 10/31 Specimen Type: BLOOD No comment entered. Ordering Provider: CAMI ARAMBULA Report Released Date/Time : Nov 07, 2023 01:47 PM Reporting Lab: [place] [facility] [address] [place] [address] 8 Performin g Lab: [place] [facility] [address] [place] [address] [facility] CHOLESTEROL PANEL (PB) CHOLESTEROL [MASS/VOLUME] IN SERUM OR PLASMA 155 mg/dL 0 - 200 10/31 Specimen Type: PLASMA No comment entered. Ordering Provider: CAMI ARAMBULA Report Released Date/Time : Nov 07, 2023 01:47 PM Reporting Lab: [place] [facility] [address] [place] [address] 8 Performin g Lab: [place] [facility] [address] [place] [address] [facility] CHOLESTEROL PANEL (PB) TRIGLYCERIDE [MASS/VOLUME] IN SERUM OR PLASMA 141 mg/dL 0 - 150 10/31 Specimen Type: PLASMA No comment entered. Ordering Provider: CAMI ARAMBULA Report Released Date/Time : Nov 07, 2023 01:47 PM Reporting Lab: [place] [facility] [address] [place] [address] Performin g Lab: [place] [facility] [address] [place] [address] [facility] CHOLESTEROL PANEL (PB) CHOLESTEROL IN LDL [MASS/VOLUME] IN SERUM OR PLASMA BY CALCULATION 71.8 mg/dL 10/31 Specimen Type: PLASMA No comment entered. Ordering Provider: CAMI ARAMBULA Report Released Date/Time : Nov 07, 2023 01:47 PM Reporting Lab: [place] [facility] [address] [place] [address] Performin g Lab: [place] [facility] [address] [place] [address] [facility] CHOLESTEROL PANEL (PB) CHOLESTEROL IN HDL [MASS/VOLUME] IN SERUM OR PLASMA 55.0 mg/dL 40 10/31 H Specimen Type: PLASMA No comment entered. Ordering Provider: CAMI ARAMBULA Report Released Date/Time : Nov 07, 2023 01:47 PM Reporting Lab: [place] [facility] [address] [place] [address] Performin g Lab: [place] [facility] [address] [place] [address] [facility] CHOLESTEROL PANEL (PB) CHOLESTEROL IN HDL/CHOLESTER OL.TOTAL [MASS RATIO] IN SERUM OR PLASMA 35.5 25 10/31 Specimen Type: PLASMA No comment entered. Ordering Provider: CAMI ARAMBULA Report Released Date/Time : Nov 07, 2023 01:47 PM Reporting Lab: [place] [facility] [address] [place] [address] Performin g Lab: [place] [facility] [address] [place] [address] [facility] COMPREHENSI VE METABOLIC PANEL CREATININE [MASS/VOLUME] IN SERUM OR PLASMA 0.84 mg/dL 0.7 - 1.3 10/31 Specimen Type: PLASMA No comment entered. Ordering Provider: CAMI ARAMBULA Report Released Date/Time : Nov 07, 2023 01:47 PM Reporting Lab: [place] [facility] [address] [place] [address] 8 Performin g Lab: [place] [facility] [address] [place] [address] [place] [facility] COMPREHENSI VE METABOLIC PANEL UREA NITROGEN [MASS/VOLUME] IN SERUM OR PLASMA 16 mg/dL 9 - 25 10/31 Specimen Type: PLASMA No comment entered. Ordering Provider: CAMI ARAMBULA Report Released Date/Time : Nov 07, 2023 01:47 PM Reporting Lab: [place] [facility] [address] [place] [address] Performin g Lab: [place] [facility] [address] [place] [address] 8 [facility] COMPREHENSI VE METABOLIC PANEL GLUCOSE [MASS/VOLUME] IN SERUM OR PLASMA 125 mg/dL 72 - 99 10/31 H Specimen Type: PLASMA No comment entered. Ordering Provider: CAMI ARAMBULA Report Released Date/Time : Nov 07, 2023 01:47 PM Reporting Lab: [place] [facility] [address] [place] [address] 8 Performin g Lab: [place] [facility] [address] [place] [address] 8 [facility] COMPREHENSI VE METABOLIC PANEL SODIUM [MOLES/VOLUME ] IN SERUM OR PLASMA 141 meq/L 136 - 145 10/31 Specimen Type: PLASMA No comment entered. Ordering Provider: CAMI ARAMBULA Report Released Date/Time : Nov 07, 2023 01:47 PM Reporting Lab: [place] [facility] [address] [place] [address] 8 Performin g Lab: [place] [facility] [address] [place] [address] 8 [place] [facility] COMPREHENSI VE METABOLIC PANEL POTASSIUM [MOLES/VOLUME ] IN SERUM OR PLASMA 3.9 meq/L 3.5 - 5 10/31 Specimen Type: PLASMA No comment entered. Ordering Provider: CAMI ARAMBULA Report Released Date/Time : Nov 07, 2023 01:47 PM Reporting Lab: [place] [facility] [address] [place] [address] 8 Performin g Lab: [place] [facility] [address] [place] [address] 8 [facility] COMPREHENSI VE METABOLIC PANEL CHLORIDE [MOLES/VOLUME ] IN SERUM OR PLASMA 108 meq/L 98 - 107 10/31 H Specimen Type: PLASMA No comment entered. Ordering Provider: CAMI ARAMBULA Report Released Date/Time : Nov 07, 2023 01:47 PM Reporting Lab: [place] [facility] [address] [place] [address] 8 Performin g Lab: [place] [facility] [address] [place] [address] 8 [facility] COMPREHENSI VE METABOLIC PANEL CARBON DIOXIDE, TOTAL [MOLES/VOLUME ] IN SERUM OR PLASMA 22 meq/L 22 - 31 10/31 Specimen Type: PLASMA No comment entered. Ordering Provider: CAMI ARAMBULA Report Released Date/Time : Nov 07, 2023 01:47 PM Reporting Lab: [place] [facility] [address] [place] [address] 8 Performin g Lab: [place] [facility] [address] [place] [address] 8 [facility] COMPREHENSI VE METABOLIC PANEL CALCIUM [MASS/VOLUME] IN SERUM OR PLASMA 9.1 mg/dL 8.4 - 10.4 10/31 Specimen Type: PLASMA No comment entered. Ordering Provider: CAMI ARAMBULA Report Released Date/Time : Nov 07, 2023 01:47 PM Reporting Lab: [place] [facility] [address] [place] [address] Performin g Lab: [place] [facility] [address] [place] [address] 8 [facility] COMPREHENSI VE METABOLIC PANEL PROTEIN [MASS/VOLUME] IN SERUM OR PLASMA 7.3 g/dL 6 - 8.6 10/31 Specimen Type: PLASMA No comment entered. Ordering Provider: CAMI ARAMBULA Report Released Date/Time : Nov 07, 2023 01:47 PM Reporting Lab: [place] [facility] [address] [place] [address] Performin g Lab: [place] [facility] [address] [place] [address] 8 [facility] COMPREHENSI VE METABOLIC PANEL ALBUMIN [MASS/VOLUME] IN SERUM OR PLASMA 4.4 g/dL 3.4 - 5 10/31 Specimen Type: PLASMA No comment entered. Ordering Provider: CAMI ARAMBULA Report Released Date/Time : Nov 07, 2023 01:47 PM Reporting Lab: [place] [facility] [address] [place] [address] Performin g Lab: [place] [facility] [address] [place] [address] [facility] COMPREHENSI VE METABOLIC PANEL BILIRUBIN.TOT AL [MASS/VOLUME] IN SERUM OR PLASMA 0.4 mg/dL 0.2 - 1.2 10/31 Specimen Type: PLASMA No comment entered. Ordering Provider: CAMI ARAMBULA Report Released Date/Time : Nov 07, 2023 01:47 PM Reporting Lab: [place] [facility] [address] [place] [address] Performin g Lab: [place] [facility] [address] [place] [address] [facility] COMPREHENSI VE METABOLIC PANEL ALKALINE PHOSPHATASE [ENZYMATIC ACTIVITY/VOLU ME] IN SERUM OR PLASMA 107 U/L 40 - 150 10/31 Specimen Type: PLASMA No comment entered. Ordering Provider: CAMI ARAMBULA Report Released Date/Time : Nov 07, 2023 01:47 PM Reporting Lab: [place] [facility] [address] [place] [address] 8 Performin g Lab: [place] [facility] [address] [place] [address] [facility] COMPREHENSI VE METABOLIC PANEL ASPARTATE AMINOTRANSFER ASE [ENZYMATIC ACTIVITY/VOLU ME] IN SERUM OR PLASMA 26 U/L 5 - 34 10/31 Specimen Type: PLASMA No comment entered. Ordering Provider: CAMI ARAMBULA Report Released Date/Time : Nov 07, 2023 01:47 PM Reporting Lab: [place] [facility] [address] [place] [address] Performin g Lab: [place] [facility] [address] [place] [address] [facility] COMPREHENSI VE METABOLIC PANEL ALANINE AMINOTRANSFER ASE [ENZYMATIC ACTIVITY/VOLU ME] IN SERUM OR PLASMA 24 U/L 8 - 40 10/31 Specimen Type: PLASMA No comment entered. Ordering Provider: CAMI ARAMBULA Report Released Date/Time : Nov 07, 2023 01:47 PM Reporting Lab: [place] [facility] [address] [place] [address] Performin g Lab: [place] [facility] [address] [place] [address] [facility] COMPREHENSI VE METABOLIC PANEL GLOMERULAR FILTRATION RATE/1.73 SQ M.PREDICTED [VOLUME RATE/AREA] IN SERUM, PLASMA OR BLOOD BY CREATININE-BA SED FORMULA (CKD-EPI 2020) 83 10/31 Specimen Type: PLASMA No comment entered. Ordering Provider: CAMI ARAMBULA Report Released Date/Time : Nov 07, 2023 01:47 PM Reporting Lab: [place] [facility] [address] [place] [address] Performin g Lab: [place] [facility] [address] [place] [address] 8 [facility] FOLATE (PB) FOLATE [MASS/VOLUME] IN SERUM OR PLASMA 19.9 ng/mL 7 - 20 10/31 Specimen Type: SERUM No comment entered. Ordering Provider: CAMI ARAMBULA Report Released Date/Time : Nov 07, 2023 01:47 PM Reporting Lab: [place] [facility] [address] [place] [address] 8 Performin g Lab: [place] [facility] [address] [place] [address] [facility] HGA1C HEMOGLOBIN A1C/HEMOGLOBI N.TOTAL IN BLOOD 6.0 4.0 - 6.0 10/31 Specimen Type: BLOOD No comment entered. Ordering Provider: CAMI ARAMBULA Report Released Date/Time : Nov 07, 2023 01:47 PM Reporting Lab: [place] [facility] [address] [place] [address] 8 Performin g Lab: [place] [facility] [address] [place] [address] [facility] TSH (MA-PB) THYROTROPIN [UNITS/VOLUME ] IN SERUM OR PLASMA 2.311 u[IU]/ mL 0.47 - 5 10/31 Specimen Type: SERUM No comment entered. Ordering Provider: CAMI ARAMBULA Report Released Date/Time : Nov 07, 2023 01:47 PM Reporting Lab: [place] [facility] [address] [place] [address] Performin g Lab: [place] [facility] [address] [place] [address] [facility] URINE ALBUMIN PROFILE-ih (PB) ALBUMIN [MASS/VOLUME] IN URINE 32.61 mg/L 10/31 Specimen Type: URINE No comment entered. Ordering Provider: CAMI ARAMBULA Report Released Date/Time : Nov 07, 2023 01:47 PM Reporting Lab: [place] [facility] [address] [place] [address] 8 Performin g Lab: [place] [facility] [address] [place] [address] [facility] URINE ALBUMIN PROFILE-ih (PB) ALBUMIN/CREAT ININE [MASS RATIO] IN URINE 19.65 mg/g 0 - 30 10/31 Specimen Type: URINE No comment entered. Ordering Provider: CAMI ARAMBULA Report Released Date/Time : Nov 07, 2023 01:47 PM Reporting Lab: [place] [facility] [address] [place] [address] Performin g Lab: [place] [facility] [address] [place] [address] [facility] URINE ALBUMIN PROFILE-ih (PB) CREATININE [MASS/VOLUME] IN URINE 165.99 mg/dL 10/31 Specimen Type: URINE No comment entered. Ordering Provider: CAMI ARAMBULA Report Released Date/Time : Nov 07, 2023 01:47 PM Reporting Lab: [place] [facility] [address] [place] [address] Performin g Lab: [place] [facility] [address] [place] [address] [facility] VITAMIN D, 25-HYDROXY 25-HYDROXYVIT GUNTER D3 [MASS/VOLUME] IN SERUM OR PLASMA 54.2 ng/mL 30 - 96 10/31 Specimen Type: SERUM No comment entered. Ordering Provider: CAMI ARAMBULA Report Released Date/Time : Nov 07, 2023 01:47 PM Reporting Lab: [place] [facility] [address] [place] [address] Performin g Lab: [place] [facility] [address] [place] [address] [facility] HGB,HCT,PLT HEMOGLOBIN [MASS/VOLUME] IN BLOOD 15.5 g/dL 13.1 - 16.8 06/26 Specimen Type: BLOOD No comment entered. Ordering Provider: CLARE COOK Report Released Date/Time : May 23, 2024 09:45 AM Reporting Lab: [place] [facility] [address] [place] [address] Performin g Lab: [place] [facility] [address] [place] [address] [place] [facility] HGB,HCT,PLT HEMATOCRIT [VOLUME FRACTION] OF BLOOD 47.6 38.2 - 48.4 06/26 Specimen Type: BLOOD No comment entered. Ordering Provider: CLARE COOK Report Released Date/Time : May 23, 2024 09:45 AM Reporting Lab: [place] [facility] [address] [place] [address] 8 Performin g Lab: [place] [facility] [address] [place] [address] [place] [facility] HGB,HCT,PLT PLATELETS [#/VOLUME] IN BLOOD BY AUTOMATED COUNT 200 10*3/u L 150 - 400 06/26 Specimen Type: BLOOD No comment entered. Ordering Provider: CLARE COOK Report Released Date/Time : May 23, 2024 09:45 AM Reporting Lab: [place] [facility] [address] [place] [address] Performin g Lab: [place] [facility] [address] [place] [address] [place] [facility] Vital Signs Combined list of inpatient and outpatient Vital Signs from Department of Defense and Veterans Affairs, ranging from 12 months to all on record, depending upon the facility. Vital Sign Value Date Comments Source SYSTOLIC BLOOD PRESSURE 115 11/14/2024 09:29:00 [facility] DIASTOLIC BLOOD PRESSURE 75 11/14/2024 09:29:[facility] P[facility]XIMET[facility] 92 % 11/14/2024 09:29:00 [facility] WEIGHT 173.0 11/14/2024 09:29:00 [facility] BMI 28 kg/m2 11/14/2024 09:29:00 [facility] PAIN 0 11/14/2024 09:29:00 [facility] TEMPERATURE 97.5 11/14/2024 09:29:00 [facility] PULSE 73 11/14/2024 09:29:00 [facility] RESPIRATION 18 11/14/2024 09:29:00 [facility] WEIGHT 171.2 10/31/2024 13:56:23 [facility] BMI 28 kg/m2 10/31/2024 13:56:23 [facility] HEIGHT 66 10/31/2024 13:56:23 [facility] WEIGHT 173 07/24/2024 08:58:13 [place] [facility] BMI 28 kg/m2 07/24/2024 08:58:13 [place] [facility] WEIGHT 160 02/13/2024 11:19:31 [place] [facility] BMI 26 kg/m2 02/13/2024 11:19:31 [place] [facility] Encounters Combined list of: 1) Encounters from Department of [facility] facilities going backup to the last 18 months, not all VA inpatient encounters are included; 2) Encounters from the Department of Defense facilities going backup to 280 months. Location Location Details Encounter Type Encounter Number Reason For Visit Attending Provider ADM Date DC Date Status Disposition Source [facility] Outpatient Encounter [id number] 06/07 [facility] Outpatient Encounter [id number] TRAV ARAMBULA Jorje 06/13 [facility] OFF/OP EST AUGUST X REQ PHY/QHP [id number] Diagnos is: ICD-10- CM R05.8 Other specifi ed cough WHALEY,AN MATTHIEU D 06/14 [facility] OFFICE O/P EST MOD 30 MIN [id number] Diagnos is: ICD-10- CM R91.8 Other nonspec ific abnorma l finding of lung field RICARDO RUBIO G 06/14 [facility] Outpatient Encounter [id number] 06/21 [facility] Outpatient Encounter [id number] [facility] Outpatient Encounter [id number] 06/28 [facility] Outpatient Encounter [id number] 07/02 [facility] HC PRO PHONE CALL 5-10 MIN [id number] Diagnos is: ICD-10- CM 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 JANETH WHALEY D 07/02 [facility] Outpatient Encounter [id number] OLEGARIO GAYLE Fabiola D 08/13 [facility] OFF/OP EST AUGUST X REQ PHY/QHP [id number] Diagnos is: ICD-10- CM M62.81 Muscle weaknes s (genera lized) CUSTRED,TO RRI J 09/11 [facility] Outpatient Encounter [id number] 09/27 [facility] Outpatient Encounter [id number] 09/27 [facility] Outpatient Encounter [id number] 10/02 [facility] Outpatient Encounter [id number] 10/30 [facility] Outpatient Encounter [id number] 11/01 [facility] FEE [id number] Diagnos is: ICD-10- CM 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 KAYLA Barillas CCA E 11/01 [facility] Outpatient Encounter [id number] 11/01 [facility] Outpatient Encounter [id number] 11/02 [facility] Outpatient Encounter [id number] 11/05 [facility] FEE [id number] Diagnos is: ICD-10- CM Z00.01 Encount er for general adult medical exam w abnorma l finding s JANETH WHALEY 11/06 [facility] OFFICE O/P EST LOW 20 MIN [id number] Diagnos is: ICD-10- CM Z00.01 Encount er for general adult medical exam w abnorma l finding s TRAV ARAMBULA 11/06 [facility] Outpatient Encounter [id number] 11/08 [facility] Outpatient Encounter [id number] 11/19 [facility] Outpatient Encounter [id number] 11/23 [facility] Outpatient Encounter [id number] 11/27 [facility] Outpatient Encounter [id number] 11/28 [facility] Outpatient Encounter [id number] 11/29 [facility] Outpatient Encounter [id number] OLEGARIO GAYLE 11/29 [facility] PRO PHONE CALL 5-10 MIN [id number] Diagnos is: ICD-10- CM Z74.1 Need for assista nce with personruthie ortiz NALINIOLEGARIO Fabiola Sellers 11/29 [facility] Outpatient Encounter [id number] 12/03 [facility] Outpatient Encounter [id number] 12/06 [facility] Outpatient Encounter [id number] 12/11 [facility] Outpatient Encounter [id number] 12/13 [facility] En[facility] [id number] 12/15 [facility] Outpatient Encounter [id number] 12/21 [facility] Outpatient Encounter [id number] 12/26 [facility] Outpatient Encounter [id number] 01/04 [facility] Outpatient Encounter [id number] 01/11 [facility] Outpatient Encounter [id number] 01/16 [facility] Outpatient Encounter [id number] 01/25 [facility] Outpatient Encounter [id number] OLEGARIO GAYLE D 02/01 [facility] Outpatient Encounter [id number] 02/12 [facility] Outpatient Encounter [id number] 02/19 [facility] Outpatient Encounter [id number] 02/20 [facility] Outpatient Encounter [id number] 02/26 [facility] Outpatient Encounter [id number] 03/07 [facility] IMMUNIZATI ON ADMIN [id number] Diagnos is: ICD-10- CM Z23 Encount er for immuniz Alice Le 03/13 [facility] Outpatient Encounter [id number] 04/02 [facility] Outpatient Encounter [id number] 04/03 [facility] Outpatient Encounter [id number] 04/10 [facility] Outpatient Encounter [id number] 04/17 ANGELAAlejandra KEEN [facility] Encounter [id number] 04/17 [facility] Outpatient Encounter [id number] ALYSE STRICKLAND L 04/18 [facility] Outpatient Encounter [id number] Alice COBB 04/18 [facility] FAYETTXAVIERI LLE [facility] Outpatient Encounter [id number] 04/20 [facility] [place] [facility] MTMS BY PHARM HONEY EXTRACTOR 15 MIN [id number] Diagnos is: ICD-10- CM I27.82 Chronic pulmona ry embolis m LINDA BOATENG 05/05 [place] [facility] Outpatient Encounter [id number] 05/06 [facility] SYNCH AUDIO-ONLY EST LOW 20 [id number] Diagnos is: ICD-10- CM Z09 Encntr for f/u exam aft trtmt for cond oth than RICARDO Mendez G 05/06 [facility] Outpatient Encounter [id number] 05/10 [facility] Outpatient Encounter [id number] RICHA KIDD 05/14 [facility] MTMS BY PHARM EST 15 MIN [id number] Diagnos is: ICD-10- CM Z51.81 Encount er for therape utic drug level monitor matt COOKCLARE 05/23 [facility] PH1 ASSMT&MGMT NQHP 5-10 [id number] Diagnos is: ICD-10- CM Z74.1 Need for assista nce with GERALDO Brennan 05/28 [facility] Outpatient Encounter [id number] 05/28 [facility] Outpatient Encounter [id number] 05/29 [facility] Outpatient Encounter [id number] 05/30 [facility] Outpatient Encounter [id number] 05/31 [facility] Outpatient Encounter [id number] 06/14 [facility] Outpatient Encounter [id number] 06/18 [facility] EST 15 MIN [id number] Diagnos is: ICD-10- CM Z51.81 Encount er for therape utic drug level monitor matt COOKCLARE 06/26 [facility] Outpatient Encounter [id number] 07/02 [facility] Outpatient Encounter [id number] [id number] 07/11 [facility] Outpatient Encounter [id number] [id number] 07/16 [facility] Outpatient Encounter [id number] [id number] 07/16 [facility] Outpatient Encounter [id number] [id number] 07/18 [facility] HONEY EXTRACTOR 15 MIN [id number] Diagnos is: ICD-10- CM I26.99 Other pulmona ry embolis m without acute cor pulmona LINDA Clinton 07/18 [facility] Outpatient Encounter [id number] 07/23 [facility]DIV SUBSEQ [id number] [id number] Diagnos is: ICD-10- CM 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 KAYLA Barillas CCA E 07/[address] [facility] Outpatient Encounter [id number] [id number] GERALDO BURGESS 07/26 [facility] Outpatient Encounter [id number] [id number] 08/01 [facility] Outpatient Encounter [id number] [id number] 08/02 [facility] En[facility] [id number] [id number] 08/05 [facility] Outpatient Encounter [id number] [id number] 08/23 [facility] Outpatient Encounter [id number] [id number] 08/30 [facility] Outpatient Encounter [id number] [id number] 09/02 [facility] Outpatient Encounter [id number] [id number] 09/24 [facility] Outpatient Encounter [id number] [id number] 10/30 [facility] Outpatient Encounter [id number] [id number] 10/31 [facility] Outpatient Encounter [id number] [id number] Diagnos is: ICD-10- CM Z00.01 Encount er for general adult medical exam TRAV [place] 11/14 [facility] Outpatient Encounter [id number] [id number] 11/15 [facility] [facility] Outpatient Encounter [id number] 11/28 [facility] Outpatient Encounter [id number] 11/29 [facility] Outpatient Encounter [id number] 12/02 [facility] Outpatient Encounter [id number] GERALDO BURGESS JANNETTE R 12/03 [facility] Outpatient Encounter [id number] 12/03 [facility] Outpatient Encounter [id number] GERALDO BURGESS JANNETTE R 12/03 [facility] Social History Combined list of available smoking, tobacco, and other social history from Department of Defense and Veterans Affairs facilities. Social History Type Response Date Comment Sourc e Tobacco smoking status NHIS VA-TOBACCO NEVER USED CIGARETTES 11/14/2024 [facility] History of tobacco use VA-TOBACCO NEVER USED OTHER TYPE 11/14/2024 [facility] History of tobacco use VA-TOBACCO NEVER USED 11/07/2023 [facility] History of tobacco use VA-TOBACCO NEVER USED 11/03/2022 [facility] Plan of Care List of future care activities from Department of Veterans Affairs facilities. Additional future care activities may be listed in the Assessment and Plan section. Date/Time Care Activity Care Activity Detail Facili ty 12/05/2024 AMBULATORY - MEDICINE AMBULATORY - [facility]ICI [facility]
--- NOTE | 2024-12-04 09:06 | XRR_ITS ---
PROCEDURE INFORMATION: Exam: XR Chest Exam date and time: 12/04/2024 9:32 AM Age: 89 years old Clinical indication: Pain; Shortness of breath; Angina pectoris; Additional info: Cp TECHNIQUE: Imaging protocol: Radiologic exam of the chest. Views: 1 view. COMPARISON: CT angio chest PE protcl [id number] 04/17/2024 1:40 PM FINDINGS: Lungs: Unremarkable. No consolidation. Pleural spaces: Unremarkable. No pleural effusion. No pneumothorax. Heart/Mediastinum: Unremarkable. No cardiomegaly. Bones/joints: Unremarkable. XR/XR chest 1V portable [id number] IMPRESSION: No acute findings.
--- NOTE | 2024-12-04 09:12 | CT_ITS ---
WS: [id number] CTA THORACIC TECHNIQUE: Contrast enhanced CTA of the thoracic aorta with coronal and sagittal reformatted images and maximum intensity projection (MIP) images. CLINICAL INFORMATION: cp/sob COMPARISON: 2023 DLP: 622.[address] scans at [facility] use at least one of these dose optimization techniques: automated exposure control; mA and/or kV adjustment per patient size (includes targeted exams where dose is matched to clinical indication); or iterative reconstruction. FINDINGS: Mild aortic calcification. No evidence for aortic dissection. Coronary calcification. Proximal main pulmonary arteries are normal. No evidence of pulmonary embolus. Cardiomegaly. The ascending thoracic aorta measures approximately 4.0 cm unchanged. Lungs are well aerated. Slight bibasilar atelectasis. Adrenal glands are normal. Cholelithiasis. Small esophageal hiatal hernia. Partially visualized LEFT upper pole renal cyst. Thoracic kyphosis with ankylosis. CT/CT angio chest [id number] IMPRESSION: 1. No evidence of pulmonary embolus. 2. Lungs are well aerated. 3. Small esophageal hiatal hernia.
--- NOTE | 2024-12-04 09:12 | W.ED.CHESTPA ---
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 Patient is here with family where she states that he was complaining of chest pain shortness of breath earlier today he is on Xarelto. Patient is now pain-free but she states that he does have short-term memory loss. No fever Associated symptoms: Reports dyspnea; Deny abdominal pain, fever(s), nausea or vomiting Related Data Home Medications ?Medication ?Instructions ?Recorded ?Confirmed B-complex with vitamin C 1 tab PO DAILY 02/04/20 06/07/24 finasteride 5 mg tablet 5 mg PO DAILY 02/04/20 06/07/24 milk thistle 150 mg capsule 150 mg PO DAILY 08/04/20 06/07/24 saw palmetto 160 mg capsule 160 mg PO BID 08/04/20 06/07/24 ashwagandha root extract 300 mg 300 mg PO DAILY 04/12/23 06/07/24 capsule fluoxetine 20 mg capsule 20 mg PO DAILY 04/12/23 06/07/24 ginkgo biloba 40 mg tablet 40 mg PO DAILY 04/12/23 06/07/24 multivitamin 1 tab PO QAM 04/12/23 06/07/24 omega-3 fatty acids-fish oil 684 1 cap PO DAILY 04/12/23 06/07/24 mg-1,200 mg capsule,delayed release clopidogrel 75 mg tablet 75 mg PO DAILY 10/20/23 06/07/24 coenzyme Q10 200 mg/gram oral 200 mg PO DAILY 10/20/23 06/07/24 powder (H2Q CoQ10) rosuvastatin 10 mg tablet 5 mg PO DAILY 04/17/24 06/07/24 Mushroom Complex PO 06/07/24 06/07/24 losartan 50 mg tablet 50 mg PO DAILY PRN 06/07/24 06/07/24 Previous Rx's ?Medication ?Instructions ?Recorded amlodipine 5 mg tablet 5 mg PO DAILY #30 tabs 04/12/23 rivaroxaban 15 mg tablet (Xarelto) 15 mg PO BID 21 days #42 tabs 07/16/24 rivaroxaban 20 mg tablet (Xarelto) See Rx Instructions .Route 11/01/24 .COMPLEX #90 tabs Allergies Allergy/AdvReac Type Severity Reaction Status Date / Time No Known Allergies Allergy Verified 12/04/24 09:11 Review of Systems Const: Denies: fever(s), chills, body aches or change in appetite ENMT: Denies: throat pain or dental pain Card: Reports: chest pain Resp: Reports: dyspnea GI: Denies: abdominal pain, nausea, vomiting or diarrhea Musc: Denies: neck pain or back pain Skin/Breast: Denies: rash Neuro: Denies: headache(s) PFSH ED PFSH: Medical History Essential hypertension Tremor due to disorder of central nervous system Cerebrovascular accident (CVA) after heart procedure Hypertension BPH (benign prostatic hyperplasia) Bradycardia Surgical History Hx of tonsillectomy Hx of vasectomy Hx of transurethral resection of prostate 1994 Family History Other BPH (benign prostatic hyperplasia) Hypertension Social History Smoking and tobacco/nicotine status: never used tobacco/nicotine Alcohol intake: current Alcohol intake frequency: other Substance/Drug Use: never Physical Exam Const: COMMON NORMALS: no acute distress and healthy appearing HENMT: COMMON NORMALS: normocephalic and atraumatic HEAD & SCALP: normocephalic and atraumatic Eye: COMMON NORMALS: conjunctivae normal CONJUNCTIVA: Yes conjunctivae normal Neck/C-Spine: COMMON NORMALS: full ROM and supple Chest: COMMONS NORMALS: normal inspection of the chest and normal palpation of entire chest wall Resp: COMMON NORMALS: normal respiratory effort, No retractions, No use of accessory muscles and clear to auscultation bilaterally AUSCULTATION: clear to auscultation bilaterally Cardio: COMMON NORMALS: regular rate, regular rhythm and No murmurs present (Cardio) RATE: regular rate RHYTHM: regular rhythm GI: COMMON NORMALS: Normal to inspection, nondistended, normoactive bowel sounds present, Soft to palpation, non-tender and no masses PALPATION: Yes Soft to palpation Extremity: COMMON NORMALS: normal to inspection and full ROM Neuro: COMMON NORMALS: moves all extremities and no focal motor deficits Psych: COMMON NORMALS: mental status grossly normal, Normal thought process present and cooperative THOUGHT PROCESS: Normal thought process present Skin: COMMON NORMALS: no rashes or lesions noted and no wounds GENERAL SKIN EXAM: no rashes or lesions noted Course Vital Signs: Vital signs: Vital Signs Pulse Rate 53 L 12/04/24 11:30 Respiratory Rate 15 12/04/24 11:15 Blood Pressure 144/68 12/04/24 11:30 Pulse Oximetry 95 12/04/24 11:30 Oxygen Delivery Me thod Room Air 12/04/24 09:42 MDM - Chest Pain Medical Decision Making Patient presents here the episode of chest pain he is been well-appearing here imaging here is normal patient's troponins are negative no signs ACS he stable for discharge follow-up with PCP return worsening. Medical Records I reviewed the patient's medical records. Lab Data I reviewed the patient's lab results. 12/04/24 09:30 12/04/24 09:30 Radiology Impressions Chest X-Ray 12/04/24 09:06 IMPRESSION: No acute findings. Chest CTA 12/04/24 09:12 IMPRESSION: 1. No evidence of pulmonary embolus. 2. Lungs are well aerated. 3. Small esophageal hiatal hernia. Laboratory Results WBC 5.19 10^3/uL (3.29-11.43) 12/04/24 09:30 RBC 5.06 10^6/uL (3.85-5.65) 12/04/24 09:30 Hgb 15.00 g/dL (11.27-16.99) 12/04/24 09:30 Hct 44.3 % (37-53) 12/04/24 09:30 MCV 87.5 fl (82-101) 12/04/24 09:30 MCH 29.6 pg (27-33) 12/04/24 09:30 MCHC 33.9 g/dL (30-55) 12/04/24 09:30 RDW 12.8 % (12.1-15.1) 12/04/24 09:30 Plt Count 270 10^3/cmm (157-399) 12/04/24 09:30 MPV 10.1 fL (7.4-10.4) 12/04/24 09:30 Neut % (Auto) 66.6 % 12/04/24 09:30 Lymph % (Auto) 22.4 % 12/04/24 09:30 Traverse % (Auto) 9.1 % 12/04/24 09:30 Eos % (Auto) 1.5 % 12/04/24 09:30 Baso % (Auto) 0.2 % 12/04/24 09:30 Neut # (Auto) 3.46 10^3/uL (1.8-7.7) 12/04/24 09:30 Lymph # (Auto) 1.2 10^3/uL (0.8-4.8) 12/04/24 09:30 Traverse # (Auto) 0.5 10^3/uL (0.2-0.9) 12/04/24 09:30 Eos # (Auto) 0.1 10^3/uL (0.0-0.8) 12/04/24 09:30 Baso # (Auto) 0.0 10^3/uL (0.0-0.1) 12/04/24 09:30 Nucleated RBC % (auto) 0 % 12/04/24 09:30 Nucleated RBCs # 0.0 /100WBC 12/04/24 09:30 Sodium 141 mmol/L (136-145) 12/04/24 09:30 Potassium 4.0 mmol/L (3.5-5.1) 12/04/24 09:30 Chloride 106 mmol/L (98-107) 12/04/24 09:30 Carbon Dioxide 24 mmol/L (22-29) 12/04/24 09:30 Anion Gap 15.0 (5-19) 12/04/24 09:30 BUN 16 mg/dL (8-23) 12/04/24 09:30 Creatinine 1.0 mg/dL (0.7-1.2) 12/04/24 09:30 GFR Calculation Not Reportable 12/04/24 09:30 Glucose 100 mg/dL (65-115) 12/04/24 09:30 Calculated Osmolality 293 mOsm/kg (285-295) 12/04/24 09:30 Calcium 8.9 mg/dL (8.5-10.5) 12/04/24 09:30 Total Bilirubin 0.5 mg/dL (0.15-1.2) 12/04/24 09:30 AST 17 U/L (0-40) 12/04/24 09:30 ALT 22 U/L (0-41) 12/04/24 09:30 Alkaline Phosphatase 92 U/L (40-130) 12/04/24 09:30 Troponin T Baseline 22 ng/L (0-15) H 12/04/24 09:30 Delta Troponin T 0.79 ABS# (0-10) 12/04/24 11:20 Total Protein 6.4 g/dL (6.6-8.7) L 12/04/24 09:30 Albumin 4.1 g/dL (3.5-5.2) 12/04/24 09:30 Globulin 2.3 g/dL (1.3-4.6) 12/04/24 09:30 Lipase 77 U/L (13-60) H 12/04/24 09:30 All radiology interpretation(s) finalized by discharge EKG Data EKG 1: I personally reviewed and interpreted this EKG as follows: EKG interpretation date: 12/04/24 EKG interpretation time: 09:17 Interpretation: sinus gumaro hr [address] elevation qrs 114 qtc 436 Discharge Plan Discharge Patient Disposition: Home Clinical Impression: Chest pain Condition: Stable Prescriptions: No Action finasteride 5 mg tablet 5 mg PO DAILY B-complex with vitamin C Tablet 1 tab PO DAILY H2Q CoQ10 200 mg/gram powder 200 mg PO DAILY clopidogrel 75 mg tablet 75 mg PO DAILY losartan 50 mg tablet 50 mg PO DAILY PRN Rx Instructions: if blood pressure greater than 150/95 Mushroom Complex PO Xarelto 15 mg tablet 15 mg PO BID 21 Days Qty: 42 0RF Rx Instructions: must administer with a meal/food Xarelto 20 mg tablet See Rx Instructions .ROUTE .COMPLEX Qty: 90 3RF Dose Instruction: TAKE ONE TABLET BY MOUTH EVERY EVENING WITH MEAL(S) BEGIN IN 22 DAYS, AFTER TAKING 15 MG TWICE DAILY FOR 21 DAYS. Rx Instructions: TAKE ONE TABLET BY MOUTH EVERY EVENING WITH MEAL(S) BEGIN IN 22 DAYS, AFTER TAKING 15 MG TWICE DAILY FOR 21 DAYS. milk thistle 150 mg Capsule 150 mg PO DAILY saw palmetto 160 mg Capsule 160 mg PO BID multivitamin [Multi-Vitamins] Tablet 1 tab PO QAM ginkgo biloba [Ginkoba] 40 mg Tablet 40 mg PO DAILY Rx Instructions: give with meal/snack fluoxetine 20 mg capsule 20 mg PO DAILY [place] 3 Fish Oil 684-1,200 mg Capsule,Delayed Release(Dr/Ec) 1 cap PO DAILY ashwagandha root extract 300 mg Capsule 300 mg PO DAILY amlodipine 5 mg tablet 5 mg PO DAILY Qty: 30 0RF rosuvastatin 10 mg tablet 5 mg PO DAILY Discharge Orders: Discharge ED (Routine); Ordered 12/04/24 Ordered By: Van Weber Referrals: Kandis Hlom MD [Primary Care Provider, Family Practice] Discharge Diet: Advance as tolerated Discharge Activity: Resume usual activity Patient Instructions: Chest Pain (ED) Print Language: Mongolian Coding Level of Care Code ED Supervisor [employer]printing And Photocopy for Garrick Huber
--- NOTE | 2024-12-04 09:17 | ECG_ITS ---
[facility] Date[facility] 2024-12-04 Pat Name: Ez Wren Department: Room: Gender: Male [employer]ing [employer]: : 1935 Requested By: Van Weber Order Number: [id number] Reading MD: Measurements Intervals [place] Rate: 58 P: -8 WI: 217 QRS: -68 QRSD: 114 T: 15 QT: 439 QTc: 433 Interpretive Statements SINUS BRADYCARDIA WITH FIRST DEGREE AV BLOCK LEFT AXIS DEVIATION [QRS AXIS < -30] PATTERN CONSISTENT WITH PULMONARY DISEASE INCOMPLETE RIGHT BUNDLE BRANCH BLOCK [90+ ms QRS DURATION, TERMINAL R IN V1/V2, 40+ ms S IN I/aVL/V4/V5/V6] SEPTAL MYOCARDIAL INFARCTION , OF INDETERMINATE AGE [40+ ms Q WAVE IN V1/V2] [id number]
[2024-12-04 09:43] LABS: Hematocrit 44.3 % (37-53); Hemoglobin 15.00 g/dL (11.27-16.99); Mean Corpuscular HGB Conc 33.9 g/dL (30-55); Mean Corpuscular Hemoglobin 29.6 pg (27-33); Mean Corpuscular Volume 87.5 fl (82-101); Nucleated Red Blood Cells % 0 %; Platelet Count 270 10^3/cmm (157-399); Red Blood Count 5.06 10^6/uL (3.85-5.65); White Blood Count 5.19 10^3/uL (3.29-11.43)
[2024-12-04 10:02] LABS: Alanine Aminotransferase 22 U/L (0-41); Albumin Level 4.1 g/dL (3.5-5.2); Alkaline Phosphatase 92 U/L (40-130); Anion Gap 15.0 (5-19); Aspartate Amino Transferase 17 U/L (0-40); Blood Urea Nitrogen 16 mg/dL (8-23); Calcium 8.9 mg/dL (8.5-10.5); Carbon Dioxide 24 mmol/L (22-29); Chloride 106 mmol/L (98-107); Creatinine Clr Calc Pharmacy 49.2201; Globulin 2.3 g/dL (1.3-4.6); Glucose 100 mg/dL (65-115); Lipase 77 U/L (13-60); Osmolality Calculated 293 mOsm/kg (285-295); Potassium 4.0 mmol/L (3.5-5.1); Sodium 141 mmol/L (136-145); Total Protein 6.4 g/dL (6.6-8.7)
[2024-12-04 10:04] LABS: Troponin(5th) Baseline 22 ng/L (0-15)
[2024-12-04] MEDS: iohexol 350 mg/mL 500 mL Btl (per mL) IV (10:31)
--- NOTE | 2024-12-04 11:07 | ECG_ITS ---
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
--- NOTE | 2024-12-04 11:30 | PC.PHAR ---
[facility] 12/04/24 11:31am
[2024-12-04 11:47] LABS: Troponin 5 2HR 22.79 ng/L (0-15); Troponin 5 2HR Delta 0.79 ABS# (0-10)
--- OUTSIDE RECORDS SUMMARY | 2024-12-04 19:21 | XMS_ITS | Clinical Summary ---
Author Organization [facility] Address [address] [place] [address] Phone Care Team Providers Care Product Introduction Manager Name Role Phone Unavailable Primary Care Provider Unavailabl e Allergies No known active allergies Medications FLUoxetine (PROzac) 20 mg capsule Take 20 mg by mouth daily. Active amLODIPine (NORVASC) 10 mg tablet Take 10 mg by mouth daily. Active clopidogreL (PLAVIX) 75 mg Tablet Take 75 mg by mouth. Active finasteride (PROSCAR) 5 mg tablet Take 5 mg by mouth daily. Active rosuvastatin (CRESTOR) 5 mg tablet Take 2.5 mg by mouth daily. Active losartan (COZAAR) 100 mg tablet Take 1 Tablet (100 mg) by mouth daily. Please HOLD until you follow-up with your PCP or resume if you see your BP at home is staying elevated 1 Tablet 04/20/2024 Active polyethylene glycol (MIRALAX) 17 gram Powder in Packet Take 1 Packet (17 Grams) by mouth 1 time daily as needed for Constipation. 14 Each 04/20/2024 Active sennosides-docu sate sodium (SENNA-S) 8.6-50 mg tablet Take 1 Tablet by mouth 1 time daily as needed for Constipation. 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 embolism 04/18/2024 Acute hypoxic respiratory failure 04/18/2024 Situational depression 11/24/2023 Abnormal gait 11/24/2023 Overview (11/24/2023): Apr 05, 2023 Entered By: TRAV ARAMBULA Comment: lewis History of circumcision 11/24/2023 Overview (11/24/2023): Nov 20, 2022 Entered By: TRAV ARAMBULA Comment: 1945 History of tonsillectomy 11/24/2023 Overview (11/24/2023): Nov 20, 2022 Entered By: TRAV ARAMBULA Comment: and adenoidectomy, 1945 Obstructive sleep apnea syndrome in adult 2023 Other nonspecific abnormal finding of lung field 11/24/2023 Severe back pain 11/24/2023 Unspecified dementia, unspec ified severity, without behavioral disturbance, psychotic disturbance, mood disturbance, and anxiety 11/24/2023 Vascular dementia without behavioral disturbance 11/24/2023 Cerebrovascular disease 07/19/2023 Osteoarthrosis 07/19/2023 Basal cell carcinoma (BCC) 03/13/2023 Overview (11/24/2023): Apr 05, 2023 Entered By: TRAV ARAMBULA Comment: nose Dementia 03/13/2023 Benign prostatic hyperplasia with urinary obstru ction 11/09/2022 Overview (11/24/2023): Apr 05, 2023 Entered By: TRAV ARAMBULA Comment: nbo more psa levels Poor short-term memory 11/09/2022 Essential hypertension 07/18/2022 Cough 12/31/2020 Overview (11/24/2023): COUGH - Status is Resolved; Resolved Date: 12/31/2020; Recorded 12/31/2020 1:34PM by Zhane Chase PA-C, Annotation/Addendum; Promoted; acuity set as *; Encounters Date Type Department Care Team Description 11/12/2024 External Device Data [facility] Provider, Abstract 10/01/2024 External Device Data [facility] Provider, Abstract from Last 3 Months Family History Medical History Relation Name Comments Dementia Father Brain Aneurysm Mother Relation Name Status Comments Father Mother Social History Tobacco Use Types Packs/Day Years Used Date Smoking Tobacco: Never Alcohol Use Standard Drinks/Week Comments Never 0 (1 standard drink = 0.6 oz pur e alcohol) Sex and Gender Information Value Date Recorded Sex Assigned at Not on file 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 Gender Identity Not on file Sexual Orientation Not on file Last Filed Vital Signs Vital Sign Reading Time Taken Comments Blood Pressure 128/83 04/20/2024 11:10 AM TIE MAN Pulse 82 04/20/2024 11:10 AM TIE MAN Temperature 36.8 C (98.3 F) 04/20/2024 11:10 AM TIE MAN Respiratory Rate 15 04/20/2024 11:10 AM TIE MAN Oxygen Saturation 91% 04/20/2024 11:10 AM TIE MAN Inhaled Oxygen Concentration - - Weight 77.6 kg (171 lb) 04/20/2024 5:00 AM TIE MAN Height 167.6 cm (5' 6 ) 11/24/2023 9:44 AM CDT Body Mass Index 27.6 11/24/2023 9:44 AM CDT Plan of Treatment Health Maintenance Due Date Last Done Comments DTAP/TDAP/TD VACCINES (1 - Tdap) 1954 RSV VACCINE (60+ or ) (1 - 1-dose 75+ series) 2010 PNEUMOCOCCAL VACCINE 50+ YEA RS (2 of 2 - PCV20 or PCV21) 03/15/2020 03/15/2019 COVID-19 Vaccine (3 - 2023-2 5 season) 2023 03/03/2021, 07/31/2020 INFLUENZA VACCINE (#1) 2024 , 04/05/2023, 03/15/2019, Additional history exists ZOSTER VACCINE Completed 04/05/2023, 11/03/2022 Insurance RX [facility] Medicare Part D RX [employer] Commercial * Guarantor: [facility] Account Type Relation to Patient Date of Phone Billing Address Corporate Other DEFAULT ADDRESS [address] [employer] Advance Directives For more information, please contact: [phone] * Full Code (Latest Code Status on File) Date Activated Date Inactivated Comments 04/17/2024 5:51 PM 04/20/2024 3:01 PM
--- OUTSIDE RECORDS SUMMARY | 2024-12-04 19:21 | XMS_ITS | Encounter Summary ---
Author Organization [facility] Address [address] [place] [address] Care Team Providers Care Gis Professor Name Role Phone Unavailable Primary Care Provider Unavailabl e Encounter Details Date Type Department Care Team (Latest Contact Info) Description 04/27/2001 Outpatient Historical [facility] Toni Suero MD [address] [place] [address] UNS ASTHMA WOSTATUS ASTHMATICUS (Primary Dx); Hypertrophy of prostate Social History Tobacco Use Types Packs/Day Years Used Date Smoking Tobacco: Never Assessed Sex and Gender Information Value Date Recorded Sex Assigned at Not on file 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
--- OUTSIDE RECORDS SUMMARY | 2024-12-04 19:21 | XMS_ITS | Clinical Summary ---
Author Organization [facility] Address [address] 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
== END 2024-12-04 12:02 | disposition home or self-care (01) ==
PROVIDERS: Emergency Provider Emergency Medicine; PCP Family Medicine
DX: R07.9 Chest pain, unspecified (principal); Z79.02 Long term (current) use of antithrombotics/antiplatelets; I10 Essential (primary) hypertension; Z86.73 Personal history of transient ischemic attack (TIA), and cerebral infarction without residual deficits
CPT/HCPCS: 36415; 71045; 71275; 80053; 83690; 84484; 85025; 93005; 99285

== ENCOUNTER → 2024-12-10 09:29 | Outpatient (BNVA) | payer OTHER, SELFPAY | PROVIDERS: PCP Family Medicine; Visit Provider Internal Medicine Cardiovascular Disease | DX: R00.1 Bradycardia, unspecified (principal); I10 Essential (primary) hypertension; I71.9 Aortic aneurysm of unspecified site, without rupture; I51.7 Cardiomegaly; J98.11 Atelectasis; R25.1 Tremor, unspecified; Z79.02 Long term (current) use of antithrombotics/antiplatelets; Z86.73 Personal history of transient ischemic attack (TIA), and cerebral infarction without residual deficits | CPT/HCPCS: 99214 ==

== ENCOUNTER 2024-12-23 05:00 | Outpatient (RCR) | payer OTHER, SELFPAY | END 2025-01-21 23:59 | disposition home or self-care (01) | LOC: SPT 05:00 | PROVIDERS: PCP Family Medicine; Visit Provider Family Medicine | DX: M62.81 Muscle weakness (generalized) (principal) | CPT/HCPCS: 97110 ==

== ENCOUNTER 2025-01-22 05:00 | Outpatient (RCR) | payer OTHER, SELFPAY | END 2025-02-19 10:36 | disposition home or self-care (01) | LOC: SPT 05:00 | PROVIDERS: PCP Family Medicine; Visit Provider Family Medicine | DX: M62.81 Muscle weakness (generalized) (principal) | CPT/HCPCS: 97110 ==

== ENCOUNTER 2025-02-14 10:40 | Emergency (ER) | payer OTHER, SELFPAY ==
[2025-02-14] VITALS (8 sets, daily range): BP systolic 124–156; BP diastolic 78–82; PULSE 62–85; RESP 16–18; TEMP 36.5; O2SAT 93–97; BMI 27.7
--- OUTSIDE RECORDS SUMMARY | 2025-02-14 10:46 | XMS_ITS | Continuity of Care Document ---
Author Organization KATHY Varghese [facility], [facility], [facility] ([facility]) Address [address] [place] [address] Assessment No assessment recorded. Plan of Treatment Reminders Order Date Submit Date Provider Last Modified By Organization Details Last Modified Time Details Appointments OFFICE VISIT 15 2025 01:00P Nicole Gandhi MD Not available Not available Not available Lab None recorded. Referral None recorded. Procedures None recorded. Surgeries None recorded. Imaging None recorded. Medication Orders fluoxetin e 20 mg capsule 2024 025 [facility], [address], [place], [address], 02/12/2025 15:03:31 Patient TargetsNo targets recorded. Patient Instructions Encounter Date Encounter Id Patient Instructions Last Modified By Organization Details Last Modified Time 02/12/2025 [id number] He is followed b y the [place] for labs and for some meds. [email or web address] Not available 02/12/2025 15:00:38 Reason for Referral None Reported. Problems Name Problem SNOMED Code Status Onset Date Resolution Date Notes Provider Name and Address Organization Details Recorded Time Cough 48232526 Completed 202012/31/2020 COUGH - Status is Resolved ; Resolved Date: 01/01/20; Recorded 01/01/20 1:34PM by Zhane Chase PA-C, Annotati on/Adden dum; Promoted ; acuity set as *; Not Available [facility] 03:10:25 Adverse reaction to drug 94525984 Completed 202102/08/2022 MEDICATI ON REACTION - Status is Inactive ; Recorded 02/09/20 3:02PM by Jodie Smith CMT, Annotati on/Adden dum; Promoted ; acuity set as *; [facility] 03:10:25 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 4 14:50:03 Hyperten sive disorder 15845306 Active 2022 HYPERTEN SANDRA, BENIGN Jilmichael diaz, [facility] 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 4 14:50:13 [facility] hyperten sandra 17483556 Active 2022 Raj Gandhi MD [address] [place] [address], [phone] , [facility] 3 18:15:08 Poor short-te rm memory 411477092 Active 2022 Raj Gandhi MD [address] [place] [address], [phone] , [facility] 3 12:31:51 Major depressi ve disorder 362855427 Active 2022 Raj Gandhi MD [address] [place] [address], [phone] , [facility] 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 3 12:33:15 Dementia 58599938 Active 2022 Raj Gandhi MD [address] [place] [address], [address] [place] [address] , [facility] 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 3 12:03:41 Acute otitis media 0667067 Active 2023 Raj Gandhi MD [address] [place] [address], [address] [place] [address] , [facility] 4 18:05:46 Acute bronchit is with bronchos pasm 65700983 Active 2023 Livan Boone MD [address] [place] [address], [phone] , [facility] 4 11:49:31 Cerebrov ascular disease 05786683 Active 2023 Raj Gandhi MD [address] [place] [address], [phone] , [facility] 4 11:49:10 Osteoart hritis 986770027 Active 2023 Raj Gandhi MD [address] [place] [address], [phone] , [facility] 4 11:49:36 Vascular dementia 764045800 Active 2023 Raj Gandhi MD [address] [place] [address] , [facility] 4 11:50:29 Problem Notes None recorded. Medical Equipment None Reported. Allergies No known drug allergies Medications Name Sig Start Date Stop Date Status Note LastModified by Organization Details LastModified Time losartan 50 mg tablet TAKE 1 TABLET BY MOUTH ONCE DAILY 07/18 completed Not Available Not Available Not Available doxycycline hyclate 100 mg capsule TAKE 1 CAPSULE BY MOUTH ONCE DAILY FOR 5 DAYS. PRIOR TO APPOINTME NT WITH DR JOHNSON. START 01-31-2402/12 completed Not Available Not Available Not Available azithromyci n 250 mg tablet 11/09 completed Not Available Not Available Not Available prednisone 20 mg tablet Take 1 tablet every day by oral route. 07/18 completed Not Available Not Available Not Available clopidogrel 75 mg tablet TAKE 1 TABLET BY MOUTH ONCE DAILY . APPOINTME NT REQUIRED FOR FUTURE REFILLS active Not Available Not Available No t Available amlodipine 5 mg tablet 07/18 completed Not Available Not Available Not Available amoxicillin 875 mg tablet Take 1 tablet every 12 hours by oral route for 7 days. 07/18 completed Not Available Not Available Not Available imiquimod 5 % topical cream packet APPLY TO AFFECTED AREA ON BACK ONCE DAILY MONDAY- (OFF WEEKENDS) FOR 6 WEEKS. WILL CAUSE REDNESS AND IRRITATIO N active Not Available Not Available No t Available amlodipine 10 mg tablet TAKE 1 TABLET BY MOUTH ONCE DAILY . APPOINTME NT REQUIRED FOR FUTURE REFILLS active Not Available Not Available No t Available mupirocin 2 % topical ointment APPLY TWICE DAILY TO OPEN AREAS ON BACK UNTIL HEALED. KEEP COVERED WITH BANDAGE active Not Available Not Available No t Available albuterol sulfate HFA 90 mcg/actuati on aerosol inhaler Inhale 2 puffs every 4 hours by inhalatio n route as needed. 07/18 completed Not Available Not Available Not Available losartan 100 mg tablet TAKE 1 TABLET BY MOUTH ONCE DAILY 02/12 completed Not Available Not Available Not Available fluoxetine 20 mg capsule Take 1 capsule every day by oral route for 90 days. 2024 active Not Available Not Available Not Avai lable doxycycline hyclate 100 mg tablet Take 1 tablet twice a day by oral route. 07/18 completed Not Available Not Available Not Available finasteride 5 mg tablet TAKE 1 TABLET BY MOUTH ONCE DAILY . APPOINTME NT REQUIRED FOR FUTURE REFILLS active Not Available Not Available No t Available rosuvastati n 10 mg tablet TAKE 1/2 (ONE-HALF ) TABLET BY MOUTH ONCE DAILY active Not Available Not Available No t Available galantamine ER 8 mg 24 hr capsule,ext ended release 03/14 completed Not Available Not Available Not Available Xarelto 15 mg tablet TAKE 1 TABLET BY MOUTH TWICE DAILY WITH A MEAL/FOOD FOR 21 DAYS active Not Available Not Available No t Available Eliquis DVT-PE Treatment 30-Day Starter 5 mg (74 tablets) in dose pack TAKE DIRECTED ON PACKAGE 02/12 completed Not Available Not Available Not Available Vitals Date Recorded Body weight Oxygen saturation Oxygen saturation in Arterial blood by Pulse oximetry Heart rate Systolic And Diastolic Provider Name and Address Organization Details Last Updated DateTime 5 90477.3 g 93 % 93 % 78 /min 102/74 mm[Hg] ALISHA COBIAN [facility] 5 14:29:55 Social History Question Answer Notes LastModified by Prevently Details LastModified Time Tobacco Smoking Status Never Smoker ALISHA diaz [facility] 11/09/2022 12:08:35 What Was The Date Of Your Most Recent Tobacco Screening? 02/13/2025 [email or web address] Information not available 02/13/2025 Sex: Unknown Functional Status Question Answer Note LastModified by Prevently Details LastModified Time Do you use any illicit or recreational drugs? No [email or web address] Information not available 11/09/2022 What is your level of alcohol consumption? None Information not available 11/09/2022 Mental Status None recorded. Family History Nothing Reported. Medical History No medical history recorded. Immunizations Vaccine Type Date Status Note Provider Nam e and Address Organization Details Recorded Time COVID-19 vaccine, vector-nr, rS-Ad26, PF, 0.5 mL 1 completed ALISHA diaz [facility] 04/21/2023 15:04:18 Influenza, split virus, trivalent, preservative 9 completed ALISHA diaz [facility] 04/21/2023 15:04:18 Pneumococcal conjugate PCV 13 9 completed ALISHA diaz [facility] 04/21/2023 15:04:18 Influenza, split virus, trivalent, preservative 7 completed ALISHA MILLERRIS joe, [facility] 04/21/2023 15:04:18 Influenza, adjuvanted, trivalent, PF 5 completed ALISHA COBIANJOSE diaz [facility] 02/12/2025 15:12:38 zoster recombinant 3 completed ALISHA COBIANJOSE diaz, [facility] 04/21/2023 15:04:18 zoster recombinant 3 completed Jil diaz, [facility] 01/15/2024 14:50:21 Influenza, split virus, quadrivalent, PF 3 completed Jil diaz, [facility] 01/15/2024 14:50:21 COVID-19 vaccine, vector-nr, rS-Ad26, PF, 0.5 mL 1 completed ALISHA MILLERRIS joe [facility] 11/09/2022 12:07:35 COVID-19 vaccine, vector-nr, rS-Ad26, PF, 0.5 mL 1 completed ALISHA COBIANJOSE diaz [facility] 11/09/2022 12:07:35 Influenza, high-dose, trivalent, PF 4 completed Not Available [facility] 02/12/2025 14:10:33 Past Encounters Encounter ID Performer Location Encounter Start Date Encounter Closed Date Diagnosis/Indication Diagnosis SNOMED-CT Code Diagnosis ICD10 Code Diagnosis IMO Codes Diagnosis Note [id number] Raj Gandhi MD [facility] [address] [place] [phone] 02/12/2025 14:07:34 02/12/2025 15:07:52 Poor short-term memory 170742494 R41.3 slow worsening. Major depr essive disorder 073581582 F32.9 stable at this time. Depressive disorder 3548 9007 F32.9 stable at this time. Health Concerns Section Related Observation LastModified by Organization Detai ls LastModified Time None Recorded Concern Status LastModified by Organization Details LastModified Time None Recorded Payers Encounter Date Sequence Insurance Name Policy Number Policy Everett Covered Member ID Everett Member ID Guarantor Name 02/12/2025 1 [employer]/A DVANTAGE - PPO) [id number] Ez Wren [id number] Ez Wren Notes Date Note Type Note Provider Name and Address Organization Details Recorded Time 02/12/2025 text/html Anxiety/Depressi onRepor raul by PatientHPIFor associated symptoms, patient reportsdepressionandfat igue. For severity, patient reportsdenies suicidal ideations,able to maintain relationships, anddoes not interfere with activities of daily living. For onset/timing, patient reportsgradual. For modifying factors, patient reportsmedications as directed (prozac). Hypertension IM/FMReported by PatientHPIFor quality, patient reportshere for check-up. For severity, patient reportsnormal (<120/<80 mmhg). For onset/timing, patient reportsgradual onset. For alleviating factors, patient reportsmedication. For associated symptoms, patient reportsno shortness of breath,no palpitations, andno chest pain. Raj Gandhi MD [address] [place] [address], [phone], [facility] 02/12/2025 15:05:29
--- OUTSIDE RECORDS SUMMARY | 2025-02-14 10:46 | XMS_ITS | Clinical Summary ---
Author Organization [facility] Address [address] [place] [address] Phone Care Team Providers Care Geneticist Name Role Phone Unavailable Primary Care Provider [...] Encounters Date Type Department Care Team Description 12/24/2024 External Device Data STL ABSTRACTION Provider, Abstract from Last 3 Months Family History Medical History Relation Name Comments Dementia Father Brain Aneurysm Mother Relation Name Status Comments Father Mother Social History Tobacco Use Types Packs/Day Years Used Date Smoking Tobacco: Never Alcohol Use Standard Drinks/Week Comments Never 0 (1 standard drink = 0.6 oz pur e alcohol) Feeling Safe Answer Date Recorded Are you in a relationship wi th someone who hurts you emotionally and/or physically? No 04/17/2024 Sex and Gender Information Value Date Recorded Sex Assigned at Not on file Legal Sex Male 3:37 AM PLAN CHECKER Gender Identity Not on file Sexual Orientation Not on file Last Filed Vital Signs Vital Sign Reading Time Taken Comments Blood Pressure 128/83 04/20/2024 11:10 AM PLAN CHECKER Pulse 82 04/20/2024 11:10 AM PLAN CHECKER Temperature 36.8 C (98.3 F) 04/20/2024 11:10 AM PLAN CHECKER Respiratory Rate 15 04/20/2024 11:10 AM PLAN CHECKER Oxygen Saturation 91% 04/20/2024 11:10 AM PLAN CHECKER Inhaled Oxygen Concentration - - Weight 77.6 kg (171 lb) 04/20/2024 5:00 AM PLAN CHECKER Height 167.6 cm (5' 6 ) 11/24/2023 9:44 AM CDT Body Mass Index 27.6 11/24/2023 9:44 AM CDT Plan of Treatment Health Maintenance Due Date Last Done Comments DTAP/TDAP/TD VACCINES (1 - Tdap) 1954 RSV VACCINE (60+ or ) (1 - 1-dose 75+ series) 2010 PNEUMOCOCCAL VACCINE 50+ YEA RS (2 of 2 - PCV20 or PCV21) 03/15/2020 03/15/2019 INFLUENZA VACCINE (#1) 2024 , 04/05/2023, 03/15/2019, Additional history exists COVID-19 Vaccine (3 - 2024-2 6 season) 2024 03/03/2021, 07/31/2020 ZOSTER VACCINE Completed 04/05/2023, 11/03/2022 Insurance RX [facility] Medicare Part D RX [employer] Commercial * Guarantor: [employer] Account Type Relation to Patient Date of Phone Billing Address Corporate Other DEFAULT ADDRESS [address] [employer] Advance Directives For more information, please contact: [phone] * Full Code (Latest Code Status on File) Date Activated Date Inactivated Comments 04/17/2024 5:51 PM 04/20/2024 3:01 PM
--- OUTSIDE RECORDS SUMMARY | 2025-02-14 10:46 | XMS_ITS | Data Portability ---
Author Organization KATHY Varghese [facility], [facility] Address [address] [address] Assessment No assessment recorded. Plan of Treatment Reminders Order Date Submit Date Provider Last Modified By Organization Details Last Modified Time Details Appointments OFFICE VISIT 15 2025 01:00P Nicole Gandhi MD Not available Not available Not available Lab BMP, serum or plasma 2024 025 [facility], [address] [facility], [facility] [place], [address], 02/13/2025 16:14:29 CBC 2024 025 [facility], [address] [facility] [address], [address], 02/13/2025 15:43:42 Referral None recorded . Procedures None recorded . Surgeries None recorded . Imaging None recorded . Medication Orders fluoxeti ne 20 mg capsule 2024 025 [facility], [address], [place], [address], 02/12/2025 15:03:31 predniso ne 20 mg tablet 2023 024 [facility], [address], [place], [address], 07/19/2023 11:13:51 doxycycl ine hyclate 100 mg tablet 2023 024 [facility] 15, [address], [place], [address], 07/19/2023 11:14:03 albutero l sulfate HFA 90 mcg/actu ation aerosol inhaler 2023 024 [facility] [address], [address], [place], [address], 07/19/2023 11:14:09 losartan 100 mg tablet 2022 023 [email or web address] [facility] 15, [address], [place], [address], 02/12/2025 14:26:27 Patient TargetsNo targets recorded. Patient Instructions Encounter Date Encounter Id Patient Instructions Last Modified By Organization Details Last Modified Time 02/12/2025 [id number] He is followed b y the ID for labs and for some meds. [email or web address] Not available 02/12/2025 15:00:38 02/13/2025 [id number] I will get a CBC and BMP. He is on clopidigrel and xarelto [email or web address] Not available 02/13/2025 15:25:45 Reason for Referral None Reported. Results Created Date Observation Date Name Description Value Unit Range Abnormal Flag Note LastModifiedBy Organization Detail LastModifiedTime 02/14/2002/13/2025 CBC WBC 7.9 x10 4.5-10 .5 Not Available [facility] [address], [place], [address], 02/13/2025 15:43:42 02/14/2002/13/2025 CBC RBC 5.01 x10 4.30-5 .90 Not Available [facility] [address], [place], [address], 02/13/2025 15:43:42 02/14/2002/13/2025 CBC HGB 15.4 g/dL 13.5-1 8.0 Not Available [facility] [address] [facility], [place], [address], 02/13/2025 15:43:42 02/14/2002/13/2025 CBC HCT 46.6 % 35.0-6 0.0 Not Available [facility] [address] [facility], [place], [address], 02/13/2025 15:43:42 02/14/2002/13/2025 CBC MCV 93.0 fL 80.0-9 9.9 Not Available [facility] [address] [facility], [place], [address], 02/13/2025 15:43:42 02/14/2002/13/2025 CBC MCH 30.8 pg 27.0-3 2.0 Not Available [facility] [address] [facility], [place], [address], 02/13/2025 15:43:42 02/14/2002/13/2025 CBC MCHC 33.1 g/dL 32.0-3 6.0 Not Available [facility] [address] [facility] [address], [place], [address], 02/13/2025 15:43:42 02/14/2002/13/2025 CBC RDW 13.6 % 11.5-1 4.5 Not Available [facility] [address] [facility], [place], [address], 02/13/2025 15:43:42 02/14/2002/13/2025 CBC plt 274.6 x10 150.0- 451.0 Not Available [facility] [address] [facility], [place], [address], 02/13/2025 15:43:42 02/14/20 25 02/13/2025 CBC lymphocytes % 13.3 % 20.0-5 0.0 low Not Available [facility] [address] [facility], [place], [address], 02/13/2025 15:43:42 02/14/20 25 02/13/2025 CBC granulcytes % 77.4 % 30.0-7 0.0 high Not Available [facility] [address] [facility], [place], [address], 02/13/2025 15:43:42 02/14/2002/13/2025 CBC monocytes % 8.3 % 2.0-16 .0 Not Available [facility] [address] [address], [place], [address], 02/13/2025 15:43:42 02/14/20 25 02/13/2025 CBC granulcytes# 6.1 x10 Not Malaika ilable [facility] [address] [address], [place], [address], 02/13/2025 15:43:42 02/14/20 25 02/13/2025 CBC lymphocytes # 1.1 x10 Not Available [facility] [address] [address], [place], [address], 02/13/2025 15:43:42 02/14/2002/13/2025 CBC monocytes # 0.7 x10 Not Avai lable [facility] [address], [address], 02/13/2025 15:43:42 02/14/20 25 02/13/2025 BMP (MALE ) glucose 91.0 mg/dL 60.0-9 9.0 Not Available [facility] [address] [place], [address], 02/13/2025 16:14:29 02/14/20 25 02/13/2025 BMP (MALE ) BUN (blood urea nitrogen) 16.0 mg/dL 10.0-2 6.0 Not Available [facility] [address] [facility] [address], [place], [address], 02/13/2025 16:14:29 02/14/20 25 02/13/2025 BMP (MALE ) creatinine (serum) 0.8 mg/dL 0.4-1. 5 Not Available [facility] [address] [facility], [place], [address], 02/13/2025 16:14:29 02/14/20 25 02/13/2025 BMP (MALE ) BUN/creatini ne ratio 20.00 ratio Not Available [facility] [address] [facility], [place], [address], 02/13/2025 16:14:29 02/14/20 25 02/13/2025 BMP (MALE ) calcium 9.3 mg/dL 8.4-10 .5 Not Available [facility] [address] [facility], [place], [address], 02/13/2025 16:14:29 02/14/20 25 02/13/2025 BMP (MALE ) sodium 137.0 mmol/ L 136.0- 145.0 Not Available [facility] [address] [facility] [address], [place], [address], 02/13/2025 16:14:29 02/14/20 25 02/13/2025 BMP (MALE ) potassium 3.5 mmol/ L 3.5-5. 1 Not Available [facility] [address] [facility], [place], [address], 02/13/2025 16:14:29 02/14/20 02/13/2025 BMP (MALE ) chloride 103.0 mmol/ L 98.0-1 10.0 normal Not Available [facility] [address] [address], [place], [address], 02/13/2025 16:14:29 02/14/20 25 02/13/2025 BMP (MALE ) C02 24.0 mmol/ L 22.0-3 1.0 Not Available [facility] [address] [facility], [place], [address], 02/13/2025 16:14:29 06/02/19 24 06/03/2023 azalea gonzalez am No observ ation record ed. [email or web address] [facility] ([facility]) [address] [place], [address], 06/06/2023 08:47:34 Result Notes None recorded. Problems Name Problem SNOMED Code Status Onset Date Resolution Date Notes Provider Name and Address Organization Details Recorded Time Cough 79523794 Completed 202012/31/2020 COUGH - Status is Resolved ; Resolved Date: 01/01/20; Recorded 01/01/20 1:34PM by Zhane Chase PA-C, Annotati on/Adden dum; Promoted ; acuity set as *; Not Available [facility] 3 03:10:25 Adverse reaction to drug 58041001 Completed 202102/08/2022 MEDICATI ON REACTION - Status is Inactive ; Recorded 02/09/20 22 3:02PM by Jodie Smith CMT, Annotati on/Adden dum; Promoted ; acuity set as *; Not Available [facility] 3 03:10:25 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 4 14:50:06 Large prostate 261024165 Active 2022 BENIGN LOCALIZE D HYPERPLA KYLE OF PROSTATE Jil diaz, [facility] 4 14:50:13 [facility] hypertjose m arevalo 32406714 Active 2022 Raj Gandhi MD [address] [place] [address], [address] [place] [address] , [facility] 3 18:15:08 Poor short-te rm memory 968497901 Active 2022 Raj Gandhi MD [address] [place] [address], [address] [place] [address] , [facility] 3 12:31:51 Major depressi ve disorder 320748008 Active 2022 Raj Gandhi MD [address] [place] [address], [address] [place] [address] , [facility] 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 3 12:33:15 Dementia 82691157 Active 2022 Raj Gandhi MD [address] [place] [address], [address] , [facility] 3 12:01:48 Basal cell carcinom a of skin 458305127 Active 2022 Raj Gandhi MD [address] [place] [address], [address] , [facility] 3 12:03:41 Acute otitis media 1855014 Active 2023 Raj Gandhi MD [address] [place] [address], [address] , [facility] 4 18:05:46 Acute bronchit is with bronchos pasm 85260910 Active 2023 Livan Boone MD [address] [place] [address], [address] [place] [address] , [facility] 4 11:49:31 Cerebrov ascular disease 27035890 Active 2023 Raj Gandhi MD [address] [place] [address], [address] , [facility] 4 11:49:10 Osteoart hritis 481266673 Active 2023 Raj Gandhi MD [address] [place] [address], [address] , [facility] 4 11:49:36 Vascular dementia 183960979 Active 2023 Raj Gandhi MD [address] [place] [address], [address] , [facility] 4 11:50:29 Problem Notes [...] Available Not Available Vitals Date Recorded Body height Body mass index (BMI) Body weight Oxygen saturation Oxygen saturation in Arterial blood by Pulse oximetry Heart rate Respiratory rate Body temperature Systolic And Diastolic Provider Name and Address Organization Details Last Updated DateTime 4 167.64 cm 27.3 kg/m2 59309.1 1 g 97 % 97 % 71 /min 20 /min 97.3 [degF] 120/70 mm[Hg] Tamara Blakely [facility] 4 11:39:43 Date Recorded Body height Body mass index (BMI) Body weight Heart rate Systolic And Diastolic Provider Name and Address Organization Details Last Updated DateTime 07/19/2023 167.64 cm 27.1 kg/m2 08274.52 g 62 /min 141/80 mm[Hg] RENO HORVATH [facility] 4 11:18:04 Date Recorded Body weight Oxygen saturation Oxygen saturation in Arterial blood by Pulse oximetry Heart rate Systolic And Diastolic Provider Name and Address Organization Details Last Updated DateTime 5 52115.3 g 93 % 93 % 78 /min 102/74 mm[Hg] ALISHA COBIAN [facility] 5 14:29:55 Date Recorded Body height Body mass index (BMI) Body weight Oxygen saturation Oxygen saturation in Arterial blood by Pulse oximetry Heart rate Body temperature Systolic And Diastolic Provider Name and Address Organization Details Last Updated DateTime 5 167.64 cm 27.6 kg/m2 25268.3 g 97 % 97 % 78 /min 97.7 [degF] 132/72 mm[Hg] Dea Diop [facility] 5 14:45:27 Date Recorded Body height Body mass index (BMI) Body weight Oxygen saturation Oxygen saturation in Arterial blood by Pulse oximetry Heart rate Systolic And Diastolic Provider Name and Address Organization Details Last Updated DateTime 3 167.64 cm 26 kg/m2 08655.3 7 g 93 % 93 % 67 /min 171/98 mm[Hg] ALISHA COBIAN [facility] 3 15:10:20 Social History Question Answer Notes LastModified by Organizat ion Details LastModified Time Tobacco Smoking Status Never Smoker ALISHA diaz [facility] 11/09/2022 12:08:35 What Was The Date Of Your Most Recent Tobacco Screening? 02/13/2025 [email or web address] Information not available 02/13/2025 Sex: Unknown Functional Status Question Answer Note LastModified by Organizat ion Details LastModified Time Do you use any illicit or recreational drugs? No [email or web address] Information not available 11/09/2022 What is your level of alcohol consumption? None [email or web address] Information not available 11/09/2022 Mental Status None recorded. Family History Nothing Reported. Medical History No medical history recorded. Immunizations Vaccine Type Date Status Note Provider Nam e and Address Organization Details Recorded Time COVID-19 vaccine, vector-nr, rS-Ad26, PF, 0.5 mL 1 completed ALISHA diaz [facility] 04/21/2023 15:04:18 Influenza, split virus, trivalent, preservative 9 completed ALISHA diaz, [facility] 04/21/2023 15:04:18 Pneumococcal conjugate PCV 13 9 completed ALISHA diaz [facility] 04/21/2023 15:04:18 Influenza, split virus, trivalent, preservative 7 completed ALISHA diaz [facility] 04/21/2023 15:04:18 Influenza, adjuvanted, trivalent, PF 5 completed ALISHA diaz, [facility] 02/12/2025 15:12:38 zoster recombinant 3 completed ALISHA diaz [facility] 04/21/2023 15:04:18 zoster recombinant 3 completed Jil diaz [facility] 01/15/2024 14:50:21 Influenza, split virus, quadrivalent, PF 3 completed Jil Irwin joe, [facility] 01/15/2024 14:50:21 COVID-19 vaccine, vector-nr, rS-Ad26, PF, 0.5 mL 1 completed ALISHA diaz, [facility] 11/09/2022 12:07:35 COVID-19 vaccine, vector-nr, rS-Ad26, PF, 0.5 mL 1 completed ALISHA diaz, [facility] 11/09/2022 12:07:35 Influenza, high-dose, trivalent, PF 4 completed Not Available [facility] 02/12/2025 14:10:33 Past Encounters Encounter ID Performer Location Encounter Start Date Encounter Closed Date Diagnosis/Indication Diagnosis SNOMED-CT Code Diagnosis ICD10 Code Diagnosis IMO Codes Diagnosis Note [id number] Raj Gandhi MD [facility] ([facility]) [address] [place] [phone] 11/09/2022 11:59:04 11/09/2022 13:05:05 Poor short-term memory 391028850 R41.3 Major depr essive disorder 856748831 F32.9 Benign pro static hyperplasia with outflow obstruction 717902116 N40.1 Essential hypertension 69587740 I10 [id number] Raj Gandhi MD [facility] ([facility]) [address] [place] [phone] 03/14/2023 11:13:00 03/14/2023 13:36:31 Benign prostatic hyperplasia with outflow obstruction 453283047 N40.1 Poor short -term memory 383541360 R41.3 Major depr essive disorder 822618116 F32.9 stable at this time. Hypertensive disorder 38 737763 I10 Dementia 68719466 F03.90 Basal cell carcinoma of skin 770586479 C44.91 tip of nose [id number] Raj Gandhi MD [facility] ([facility]) [address] [place] [phone] 04/21/2023 14:48:38 04/21/2023 15:47:09 Dementia 81167394 F03.90 stable. Hypertensive disorder 38 417395 I10 Essential hypertension 12760815 I10 [id number] Livan Boone MD [facility] ([facility]) [address] [place] [address] 06/08/2023 11:20:24 06/08/2023 13:47:45 Acute bronchitis with bronchospasm 85750167 J20.9 Advised to drink plenty of fluids, run a cool-mist humidifier in room at night, gargle salt water for sore throat, and get plenty of rest. Patient should avoid over-exert ion and reduce exposure to irritants such as smoke, cold, dry air, and dust. Treatment currently involves symptomati c relief. Patient may take acetaminop hen or ibuprofen as directed to reduce fever and body aches. Antihistam ine and decongesta nt usage was discussed and recommenda tions made. Albuterol inhaler, prednisone , and doxcycline sent to pharmacy. Take as prescribed . Patient understood these instructio ns and will follow up in the office in 7-10 days if symptoms not improving. Encouraged patient to follow up with PCP in 2 weeks for COPD sharri vizcaino [id number] Raj Gandhi MD [facility] ([facility]) [address] [place] [address] 5 07/19/2023 10:45:11 07/19/2023 12:46:00 Poor short-term memory 925535643 R41.3 Essential hypertension 48533695 I10 Cerebrovas cular disease 72548617 I67.9 Osteoarthritis 512880645 M19.90 Vascular dementia 305148 004 F01.50 [id number] Raj Gandhi MD [facility] ([facility]) [address] [place] [phone] 02/12/2025 14:07:34 02/12/2025 15:07:52 Poor short-term memory 791828227 R41.3 slow worsening. Major depr essive disorder 660644946 F32.9 stable at this time. Depressive disorder 3548 9007 F32.9 stable at this time. [id number] MAGGY CERVANTES APRN [facility] ([facility]) [address] [place] [phone] 02/13/2025 14:34:14 02/13/2025 15:30:38 Dark stools 73902691 R19.5 960030 Asthenia 53003027 R53.1 82254 Health Concerns Section Related Observation LastModified by Organization Detai ls LastModified Time None Recorded Concern Status LastModified by Organization Details LastModified Time None Recorded Advance Directives Directive None Recorded Payers Insurance Date Sequence Insurance Name Policy Number Policy Everett Covered Member ID Everett Member ID Guarantor Name 02/11/2025 1 [place]A [place] - PPO) [id number] Ez Wren [id number] Ez Wren Notes Date Note Type Note Provider Name and Address Organization Details Recorded Time 04/21/2023 text/html FatigueReported by PatientHPIFor associated symptoms, patient reportsdizziness,exerti onal fatigue, andmemory impairment. For quality, patient reportsgeneralized. For severity, patient reportsnormal sleep patterns.His BP is staying up but pulse occassionally down in the 40's. More fatigue but otherwise asymptomatic. Raj Gandhi MD [address] [place] [address], [phone], [facility] 04/21/2023 15:33:44 06/08/2023 text/html Upper Respirator y SymptomsReported by PatientUpper Respiratory SymptomsFor quality, patient reportsproductive cough,congested, andwheezy cough. For associated symptoms, patient reportschest pain,yellow-green sputum,shortness of breath,wheezing,fatigue , andfever. For location, patient reportschest. For duration, patient reportssymptoms lasting over 2 weeks. For onset/timing, patient reportsgradual.ROS as noted in the HPI Livan Boone MD [address] [place] [address], [phone], [facility] 06/10/2023 17:30:22 07/19/2023 text/html Hypertension IM/FMReported by PatientHPIFor associated symptoms, patient reportsfatiguebut reportsno shortness of breathandno palpitations. For quality, patient reportshere for check-up. For alleviating factors, patient reportsmedication. For self care, patient reportsnot under emotional stress.stable Memory worsening. Raj Gandhi MD [address] [place] [address], [phone], [facility] 07/19/2023 11:53:38 02/12/2025 text/html Anxiety/Depressi onRepor raul by PatientHPIFor [...] palpitations, andno chest pain. Raj Gandhi MD [address] [place], [address], [facility] 02/12/2025 15:05:29 02/13/2025 text/html walk inSaw PCP yesterday everything okay -black tarry stool this afternoon MAGGY CERVANTES APRN [address] [place] [address], [phone], [facility] 02/13/2025 15:26:02
--- OUTSIDE RECORDS SUMMARY | 2025-02-14 10:46 | XMS_ITS | Continuity of Care Document ---
Author Organization KATHY Varghese [facility], LElvi, [facility] ([facility]) Address [address] [place] [address] Assessment No assessment recorded. Plan of Treatment Reminders Order Date Submit Date Provider Last Modified By Organization Details Last Modified Time Details Appointments OFFICE VISIT 15 2025 01:00P Nicole Gandhi MD Not available Not available Not available Lab BMP, serum or plasma 2024 [facility], [address] [facility] [address], [address], 02/13/2025 16:14:29 CBC 2024 025 [facility], [address], [address], 02/13/2025 15:43:42 Referral None recorded . Procedures None recorded . Surgeries None recorded . Imaging None recorded . Medication Orders None recorded . Patient TargetsNo targets recorded. Patient Instructions Encounter Date Encounter Id Patient Instructions Last Modified By Organization Details Last Modified Time 02/13/2025 [id number] I will get a CBC and BMP. He is on clopidigrel and xarelto [email or web address] Not available 02/13/2025 15:25:45 Reason for Referral None Reported. Results Created Date Observation Date Name Description Value Unit Range Abnormal Flag Note LastModifiedBy Organization Detail LastModifiedTime 02/14/2002/13/2025 CBC WBC 7.9 x10 4.5-10 .5 Not Available [facility] [address] [facility], [place], [address], 02/13/2025 15:43:42 02/14/2002/13/2025 CBC RBC 5.01 x10 4.30-5 .90 Not Available [facility] [address] [facility] 1, [place], [address], 02/13/2025 15:43:42 02/14/2002/13/2025 CBC HGB 15.4 g/dL 13.5-1 8.0 Not Available [facility] [address] [facility], [place], [address], 02/13/2025 15:43:42 02/14/2002/13/2025 CBC HCT 46.6 % 35.0-6 0.0 Not Available [facility] [address] [place] [facility] 1, [place], [address], 02/13/2025 15:43:42 02/14/2002/13/2025 CBC MCV 93.0 fL 80.0-9 9.9 Not Available [facility] [address] [place] [facility] 1, [place], [address], 02/13/2025 15:43:42 02/14/2002/13/2025 CBC MCH 30.8 pg 27.0-3 2.0 Not Available [facility] [address] [facility] 1, [place], [address], 02/13/2025 15:43:42 02/14/2002/13/2025 CBC MCHC 33.1 g/dL 32.0-3 6.0 Not Available [facility] [address] [facility] 1, [place], [address], 02/13/2025 15:43:42 02/14/2002/13/2025 CBC RDW 13.6 % 11.5-1 4.5 Not Available [facility] [address] [facility] 1, [place], [address], 02/13/2025 15:43:42 02/14/2002/13/2025 CBC plt 274.6 x10 150.0- 451.0 Not Available [facility] [address] [address], [place], [address], 02/13/2025 15:43:42 02/14/2002/13/2025 CBC lymphocytes % 13.3 % 20.0-5 0.0 low Not Available [facility] [address] [address], [place], [address], 02/13/2025 15:43:42 02/14/2002/13/2025 CBC granulcytes % 77.4 % 30.0-7 0.0 high Not Available [facility] [address] [address], [place], [address], 02/13/2025 15:43:42 02/14/2002/13/2025 CBC monocytes % 8.3 % 2.0-16 .0 Not Available [facility] [address] [address], [place], [address], 02/13/2025 15:43:42 02/14/20 25 02/13/2025 CBC granulcytes# 6.1 x10 Not Malaika ilable [facility] [address] [address], [place], [address], 02/13/2025 15:43:42 02/14/2002/13/2025 CBC lymphocytes # 1.1 x10 Not Available [facility] [address] [address], [place], [address], 02/13/2025 15:43:42 02/14/2002/13/2025 CBC monocytes # 0.7 x10 Not Avai lable [facility] [address] [place] [facility], [place], [address], 02/13/2025 15:43:42 02/14/20 25 02/13/2025 BMP (MALE ) glucose 91.0 mg/dL 60.0-9 9.0 Not Available [facility] [address] [facility] 1, [place], [address], 02/13/2025 16:14:29 02/14/20 25 02/13/2025 BMP (MALE ) BUN (blood urea nitrogen) 16.0 mg/dL 10.0-2 6.0 Not Available [facility] [address] [facility] 1, [place], [address], 02/13/2025 16:14:29 02/14/20 25 02/13/2025 BMP (MALE ) creatinine (serum) 0.8 mg/dL 0.4-1. 5 Not Available [facility] [address] [facility] 1, [place], [address], 02/13/2025 16:14:29 02/14/20 25 02/13/2025 BMP (MALE ) BUN/creatini ne ratio 20.00 ratio Not Available [facility] [address] [facility] 1, [place], [address], 02/13/2025 16:14:29 02/14/20 25 02/13/2025 BMP (MALE ) calcium 9.3 mg/dL 8.4-10 .5 Not Available [facility] [address] [facility] 1, [place], [address], 02/13/2025 16:14:29 02/14/20 25 02/13/2025 BMP (MALE ) sodium 137.0 mmol/ L 136.0- 145.0 Not Available [facility] [address] [place], [address], 02/13/2025 16:14:29 02/14/20 25 02/13/2025 BMP (MALE ) potassium 3.5 mmol/ L 3.5-5. 1 Not Available [facility] [address] [facility] 1, [place], [address], 02/13/2025 16:14:29 02/14/20 25 02/13/2025 BMP (MALE ) chloride 103.0 mmol/ L 98.0-1 10.0 normal Not Available [facility] [address] [facility] 1, [place], [address], 02/13/2025 16:14:29 02/14/20 25 02/13/2025 BMP (MALE ) C02 24.0 mmol/ L 22.0-3 1.0 Not Available [facility] [address] [facility] 1, [place], [address], 02/13/2025 16:14:29 Result Notes None recorded. Problems Name Problem SNOMED Code Status Onset Date Resolution Date Notes Provider Name and Address Organization Details Recorded Time Cough 66481594 Completed 202012/31/2020 COUGH - Status is Resolved ; Resolved Date: 01/01/20 21; Recorded 01/01/20 1:34PM by Zhane Chase PA-C, Annotati on/Adden dum; Promoted ; acuity set as *; Not Available [facility] 3 03:10:25 Adverse reaction to drug 94362288 Completed 202102/08/2022 MEDICATI ON REACTION - Status is Inactive ; Recorded 02/09/20 3:02PM by Jodie Smith CMT, Annotati on/Adden dum; Promoted ; acuity set as *; Not Available [facility] 3 03:10:25 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 4 14:50:03 Hyperten sive disorder 45025994 Active 2022 HYPERTEN SANDRA, BENIGN Jilmichael diaz, [facility] 4 14:50:06 Large prostate 170127086 Active 2022 BENIGN LOCALIZE D HYPERPLA KYLE OF PROSTATE Jil diaz, [facility] 4 14:50:13 [facility] hyperten sandra 15246744 Active 2022 Raj Gandhi MD [address] [place] [address], [phone] , [facility] 3 18:15:08 Poor short-te rm memory 882524086 Active 2022 Raj Gandhi MD [address] [place], [place] [id number] , [facility] 3 12:31:51 Major depressi ve disorder 310511917 Active 2022 Raj Gandhi MD [address] [place], [place] [id number] , [facility] 3 12:32:04 Benign prostati c hyperpla kyle with outflow obstruct ion 194712360 Active 2022 Raj Gandhi MD [address] [place] [address], [phone] , [facility] 3 12:33:15 Dementia 91189241 Active 2022 Raj Gandhi MD [address] [place], [place] [id number] , [facility] 3 12:01:48 Basal cell carcinom a of skin 592518650 Active 2022 Raj Gandhi MD [address] [place] [address] , [facility] 3 12:03:41 Acute otitis media 8407551 Active 2023 Raj Gandhi MD [address] [place] [address], [phone] , [facility] 4 18:05:46 Acute bronchit is with bronchos pasm 68343216 Active 2023 Livan Boone MD [address] [place] [address], [phone] , [facility] 4 11:49:31 Cerebrov ascular disease 15139438 Active 2023 Raj Gandhi MD [address] [place] [address], [phone] , [facility] 4 11:49:10 Osteoart hritis 147944923 Active 2023 Raj Gandhi MD [address] [place] [address], [phone] , [facility] 4 11:49:36 Vascular dementia 156255224 Active 2023 Raj Gandhi MD [address] [place] [address], [phone] , [facility] 4 11:50:29 Problem Notes None recorded. [...] Not Available Not Available No t Available Saida DVT-PE Treatment 30-Day Starter 5 mg (74 [...] Updated DateTime 5 167.64 cm 27.6 kg/m2 34361.3 g 97 % 97 % 78 /min 97.7 [degF] 132/72 mm[Hg] Dea Diop [facility] 5 14:45:27 Social History Question Answer Notes LastModified by Debteye Details LastModified Time Tobacco Smoking Status Never Smoker [facility] 11/09/2022 12:08:35 What Was The Date Of Your Most Recent Tobacco Screening? 02/13/2025 [email or web address] Information not available 02/13/2025 Sex: Unknown Functional Status Question Answer Note LastModified by Debteye Details LastModified Time Do you use any illicit or recreational drugs? No Information not available 11/09/2022 What is your level of alcohol consumption? None [email or web address] Information not available 11/09/2022 Mental Status None recorded. Family History Nothing Reported. Medical History No medical history recorded. Immunizations Vaccine Type Date Status Note Provider Nam e and Address Organization Details Recorded Time COVID-19 vaccine, vector-nr, rS-Ad26, PF, 0.5 mL 1 completed ALISHA diaz [facility] 04/21/2023 15:04:18 Influenza, split virus, trivalent, preservative 9 completed ALISHA diaz [facility] 04/21/2023 15:04:18 Pneumococcal conjugate PCV 13 9 completed ALISHA diaz [facility] 04/21/2023 15:04:18 Influenza, split virus, trivalent, preservative 7 completed ALISHA diaz [facility] 04/21/2023 15:04:18 Influenza, adjuvanted, trivalent, PF 5 completed ALISHA MILLERRIS null, [facility] 02/12/2025 15:12:38 zoster recombinant 3 completed ALISHA COBIAN null, [facility] 04/21/2023 15:04:18 zoster recombinant 3 completed Jil Irwin null, [facility] 01/15/2024 14:50:21 Influenza, split virus, quadrivalent, PF 3 completed Jil Deshpandeiler null, [facility] 01/15/2024 14:50:21 COVID-19 vaccine, vector-nr, rS-Ad26, PF, 0.5 mL 1 completed ALISHA COBIAN null, [facility] 11/09/2022 12:07:35 COVID-19 vaccine, vector-nr, rS-Ad26, PF, 0.5 mL 1 completed ALISHA COBIAN null, [facility] 11/09/2022 12:07:35 Influenza, high-dose, trivalent, PF 4 completed Not Available [facility] 02/12/2025 14:10:33 Past Encounters Encounter ID Performer Location Encounter Start Date Encounter Closed Date Diagnosis/Indication Diagnosis SNOMED-CT Code Diagnosis ICD10 Code Diagnosis IMO Codes Diagnosis Note [id number] Raj Gandhi MD [facility] ([facility]) [address] [place] [phone] 02/12/2025 14:07:34 02/12/2025 15:07:52 Poor short-term memory 125968667 R41.3 slow worsening. Major depr essive disorder 530695385 F32.9 stable at this time. Depressive disorder 3548 9007 F32.9 stable at this time. [id number] MAGGY CERVANTES APRN [facility] ([facility]) [address] [place] [phone] 02/13/2025 14:34:14 02/13/2025 15:30:38 Dark stools 97179433 R19.5 [id number] Asthenia 89400199 R53.1 66133 Health Concerns Section Related Observation LastModified by Organization Detai ls LastModified Time None Recorded Concern Status LastModified by Organization Details LastModified Time None Recorded Payers Encounter Date Sequence Insurance Name Policy Number Policy Everett Covered Member ID Everett Member ID Guarantor Name 02/13/2025 1 [id number]/A DVANTAGE - PPO) [id number] Ez Wren [id number] Ez Wren Notes Date Note Type Note Provider Name and Address Organization Details Recorded Time 02/13/2025 text/html walk inSaw PCP yesterday everything okay -black tarry stool this afternoon MAGGY CERVANTES, ROLLING CHAIR PUSHER [address] [place], [address], KATHY June [facility] Jcaobo Montalvo 02/13/2025 15:26:02
--- OUTSIDE RECORDS SUMMARY | 2025-02-14 10:46 | XMS_ITS | Encounter Summary ---
Author Organization [facility] Address [address] [place] [address] Care Team Providers Care Disability Coordinator Name Role Phone Unavailable Primary Care Provider Unavailabl e Encounter Details Date Type Department Care Team (Latest Contact Info) Description 04/27/2001 Outpatient Historical [facility] Toni Suero MD [address] [place] [address] UNS ASTHMA WOSTATUS ASTHMATICUS (Primary Dx); Hypertrophy of prostate Social History Tobacco Use Types Packs/Day Years Used Date Smoking Tobacco: Never Assessed Sex and Gender Information Value Date Recorded Sex Assigned at Not on file Legal 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
--- OUTSIDE RECORDS SUMMARY | 2025-02-14 10:46 | XMS_ITS | Clinical Summary ---
Author Organization [facility] Address [address] 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
--- NOTE | 2025-02-14 10:58 | W.ED.GIBLEED ---
HPI - GI Bleed General: Chief complaint: GI Bleed Stated complaint: bloody stools Time Seen by Provider: 02/14/25 10:46 Source: patient Mode of arrival: ambulatory Limitations: no limitations History of Present Illness: 89-year-old male has had a history of stroke in the past is on Plavix and Xarelto. states yesterday he had a bowel movement and it appeared to be black and tarry. He has had no more bowel movement since then. He denies any abdominal pain denies any weakness denies any vomiting or diarrhea Related Data Home Medications ?Medication ?Instructions ?Recorded ?Confirmed B-complex with vitamin C 1 tab PO DAILY 02/04/20 12/10/24 finasteride 5 mg tablet 5 mg PO DAILY 02/04/20 12/10/24 milk thistle 150 mg capsule 150 mg PO DAILY 08/04/20 12/10/24 saw palmetto 160 mg capsule 160 mg PO QPM 08/04/20 12/10/24 ashwagandha root extract 300 mg 300 mg PO QPM 04/12/23 12/10/24 capsule fluoxetine 20 mg capsule 20 mg PO QAM 04/12/23 12/10/24 ginkgo biloba 40 mg tablet 40 mg PO BID 04/12/23 12/10/24 multivitamin 1 tab PO QAM 04/12/23 12/10/24 omega-3 fatty acids-fish oil 684 1 cap PO DAILY 04/12/23 12/10/24 mg-1,200 mg capsule,delayed release clopidogrel 75 mg tablet 75 mg PO QAM 10/20/23 12/10/24 rosuvastatin 10 mg tablet 5 mg PO DAILY 04/17/24 12/10/24 Mushroom Complex 200 mg PO DAILY 06/07/24 12/10/24 amlodipine 10 mg tablet 10 mg PO QAM 12/04/24 12/10/24 ascorbic acid (vitamin C) 500 mg 500 mg PO QAM 12/04/24 12/10/24 tablet (Vitamin C) zrtsckx-qgckxjbpe-htnc 333 mg-133 1 tab PO QPM 12/04/24 12/10/24 mg-5 mg tablet cholecalciferol (vitamin D3) 125 125 mcg PO QPM 12/04/24 12/10/24 mcg (5,000 unit) tablet (Vitamin D3) coenzyme Q10 100 mg capsule 100 mg PO DAILY 12/04/24 12/10/24 (CoQ-10) turmeric root extract 300 mg 300 mg PO QPM 12/04/24 12/10/24 capsule vitamin A 2,400 mcg capsule 2,400 mcg PO QPM 12/04/24 12/10/24 Previous Rx's ?Medication ?Instructions ?Recorded rivaroxaban 20 mg tablet (Xarelto) See Rx Instructions .Route 11/01/24 .COMPLEX #90 tabs Allergies Allergy/AdvReac Type Severity Reaction Status Date / Time No Known Allergies Allergy Verified 12/10/24 10:20 Review of Systems GI: Reports: melena PFSH ED PFSH: Medical History Essential hypertension Tremor due to disorder of central nervous system Cerebrovascular accident (CVA) after heart procedure Hypertension BPH (benign prostatic hyperplasia) Bradycardia Surgical History Hx of tonsillectomy Hx of vasectomy Hx of transurethral resection of prostate 1997, 1994 Family History Other BPH (benign prostatic hyperplasia) Hypertension Social History Smoking and tobacco/nicotine status: never used tobacco/nicotine Alcohol intake: current Alcohol intake frequency: other Substance/Drug Use: never Physical Exam Const: COMMON NORMALS: no acute distress, patient oriented x3 and healthy appearing HENMT: COMMON NORMALS: normocephalic and atraumatic HEAD & SCALP: normocephalic and atraumatic Neck/C-Spine: COMMON NORMALS: full ROM and supple Chest: COMMONS NORMALS: normal inspection of the chest Resp: COMMON NORMALS: normal respiratory effort, No retractions, No use of accessory muscles and clear to auscultation bilaterally AUSCULTATION: clear to auscultation bilaterally Cardio: COMMON NORMALS: regular rate and No murmurs present (Cardio) RATE: regular rate GI: COMMON NORMALS: Normal to inspection, nondistended, normoactive bowel sounds present, Soft to palpation, non-tender and no masses PALPATION: Yes Soft to palpation Extremity: COMMON NORMALS: normal to inspection and full ROM Neuro: COMMON NORMALS: patient oriented x3, moves all extremities and no focal motor deficits Psych: COMMON NORMALS: mental status grossly normal, Normal thought process present and cooperative THOUGHT PROCESS: Normal thought process present Skin: COMMON NORMALS: no rashes or lesions noted and no wounds GENERAL SKIN EXAM: no rashes or lesions noted Course Vital Signs: Vital signs: Vital Signs Temperature 97.7 F 02/14/25 10:46 Pulse Rate 85 02/14/25 10:46 Respiratory Rate 18 02/14/25 10:46 Blood Pressure 133/78 02/14/25 10:46 Pulse Oximetry 97 02/14/25 10:46 Oxygen Delivery Me thod Room Air 02/14/25 10:46 MDM - GI Bleed Medical Decision Making Patient presents here with dark tarry stools at home. Concerning for upper GI hemorrhage. Rectal exam here did show dark stool that was Hemoccult positive. Hemoglobin here is normal along with his electrolytes his blood pressures have been normal here as well. I did speak to GI at [facility] and they recommended transfer as patient is on Xarelto and Plavix. I spoke to hospitalist there as well who is excepting. Transferring as we do not have any surgery or GI capability at this time. Medical Records I reviewed the patient's medical records. Lab Data I reviewed the patient's lab results. 02/14/25 10:58 02/14/25 10:58 Laboratory Results WBC 5.84 10^3/uL (3.29-11.43) 02/14/25 10:58 RBC 4.54 10^6/uL (3.85-5.65) 02/14/25 10:58 Hgb 13.80 g/dL (11.27-16.99) 02/14/25 10:58 Hct 41.2 % (37-53) 02/14/25 10:58 MCV 90.7 fl (82-101) 02/14/25 10:58 MCH 30.4 pg (27-33) 02/14/25 10:58 MCHC 33.5 g/dL (30-55) 02/14/25 10:58 RDW 12.9 % (12.1-15.1) 02/14/25 10:58 Plt Count 256 10^3/cmm (157-399) 02/14/25 10:58 MPV 10.1 fL (7.4-10.4) 02/14/25 10:58 Neut % (Auto) 74.6 % 02/14/25 10:58 Lymph % (Auto) 16.3 % 02/14/25 10:58 [place] % (Auto) 7.9 % 02/14/25 10:58 Eos % (Auto) 0.7 % 02/14/25 10:58 Baso % (Auto) 0.2 % 02/14/25 10:58 Neut # (Auto) 4.36 10^3/uL (1.8-7.7) 02/14/25 10:58 Lymph # (Auto) 1.0 10^3/uL (0.8-4.8) 02/14/25 10:58 [place] # (Auto) 0.5 10^3/uL (0.2-0.9) 02/14/25 10:58 Eos # (Auto) 0.0 10^3/uL (0.0-0.8) 02/14/25 10:58 Baso # (Auto) 0.0 10^3/uL (0.0-0.1) 02/14/25 10:58 Nucleated RBC % (auto) 0 % 02/14/25 10:58 Nucleated RBCs # 0.0 /100WBC 02/14/25 10:58 PT 13.70 SECONDS (12.1-14.9) 02/14/25 10:58 INR 0.98 (0.8-1.2) 02/14/25 10:58 Sodium 140 mmol/L (136-145) 02/14/25 10:58 Potassium 4.0 mmol/L (3.5-5.1) 02/14/25 10:58 Chloride 105 mmol/L (98-107) 02/14/25 10:58 Carbon Dioxide 23 mmol/L (22-29) 02/14/25 10:58 Anion Gap 16.0 (5-19) 02/14/25 10:58 BUN 14 mg/dL (8-23) 02/14/25 10:58 Creatinine 0.8 mg/dL (0.7-1.2) 02/14/25 10:58 GFR Calculation Not Reportable 02/14/25 10:58 Glucose 126 mg/dL (65-115) H 02/14/25 10:58 Calculated Osmolality 292 mOsm/kg (285-295) 02/14/25 10:58 Calcium 8.7 mg/dL (8.5-10.5) 02/14/25 10:58 Total Bilirubin 0.3 mg/dL (0.15-1.2) 02/14/25 10:58 AST 22 U/L (0-40) 02/14/25 10:58 ALT 26 U/L (0-41) 02/14/25 10:58 Alkaline Phosphatase 100 U/L (40-130) 02/14/25 10:58 Total Protein 6.8 g/dL (6.6-8.7) 02/14/25 10:58 Albumin 3.9 g/dL (3.5-5.2) 02/14/25 10:58 Globulin 2.9 g/dL (1.3-4.6) 02/14/25 10:58 Blood Type B Positive 02/14/25 11:03 Rho(D) Type Rh positive 02/14/25 11:03 Antibody Screen Negative 02/14/25 11:03 No radiology studies performed this visit Discharge Plan Discharge Patient Disposition: Xfer Short-Term Hosp Clinical Impression: Upper gastrointestinal hemorrhage Condition: Stable Referrals: Kandis Holm MD [Primary Care Provider, [facility]] Print Language: Greek Coding Level of Care Code ED Roller Inspector for Garrick Huber
[2025-02-14 11:03] LABS: Hematocrit 41.2 % (37-53); Hemoglobin 13.80 g/dL (11.27-16.99); Mean Corpuscular HGB Conc 33.5 g/dL (30-55); Mean Corpuscular Hemoglobin 30.4 pg (27-33); Mean Corpuscular Volume 90.7 fl (82-101); Nucleated Red Blood Cells % 0 %; Platelet Count 256 10^3/cmm (157-399); Red Blood Count 4.54 10^6/uL (3.85-5.65); White Blood Count 5.84 10^3/uL (3.29-11.43)
[2025-02-14 11:14] LABS: INR 0.98 (0.8-1.2); Prothrombin Time 13.70 SECONDS (12.1-14.9)
[2025-02-14 11:19] LABS: Alanine Aminotransferase 26 U/L (0-41); Albumin Level 3.9 g/dL (3.5-5.2); Alkaline Phosphatase 100 U/L (40-130); Anion Gap 16.0 (5-19); Aspartate Amino Transferase 22 U/L (0-40); Blood Urea Nitrogen 14 mg/dL (8-23); Calcium 8.7 mg/dL (8.5-10.5); Carbon Dioxide 23 mmol/L (22-29); Chloride 105 mmol/L (98-107); Creatinine Clr Calc Pharmacy 61.5251; Globulin 2.9 g/dL (1.3-4.6); Glucose 126 mg/dL (65-115); Osmolality Calculated 292 mOsm/kg (285-295); Potassium 4.0 mmol/L (3.5-5.1); Sodium 140 mmol/L (136-145); Total Protein 6.8 g/dL (6.6-8.7)
[2025-02-14] MEDS: pantoprazole 40 mg SDV 80 MG IVP (12:24)
== END 2025-02-14 18:10 | disposition short-term general hospital (02) ==
PROVIDERS: Emergency Provider Emergency Medicine; PCP Family Medicine
DX: K92.2 Gastrointestinal hemorrhage, unspecified (principal); I10 Essential (primary) hypertension; Z86.73 Personal history of transient ischemic attack (TIA), and cerebral infarction without residual deficits
CPT/HCPCS: 36415; 80053; 85025; 85610; 86850; 86900; 96374; 99284; J2470